=== PATIENT | male | born 1930 | race African-American/Black ===

== ENCOUNTER 2017-08-02 10:08 | Inpatient (IN) | payer OTHER ==
--- NOTE | 2017-08-02 11:37 | PDOC ---
History of Present Illness <Jan Berumen - Last Filed: 08/02/17 13:17> - General History Source: Patient Exam Limitations: No Limitations - History of Present Illness Initial Comments: 08/02/17 11:59 The patient is a 87 year old male from [facility], with a significant past medical history of ESRD on dialysis (//), hypertension, anemia, hypercholesterolemia, hyponatremia, CVA, atrial fibrillation, who presents to the emergency department via EMS for evaluation of low hemoglobin levels (5.7). The patient states his last dialysis was WednesdayJuly 31 (approx. 3 days ago) where blood work was performed and determined that his hemoglobin levels were low. The patient reports associated weakness and states he has a history of anemia and has had blood transfusions in the past. He denies any recent fevers, chills, headache or dizziness. He denies any recent nausea, vomit, diarrhea or constipation. He denies any recent chest pain or shortness of breath. He denies any recent dysuria, frequency, urgency or hematuria. Allergies: NKA Social History: Former smoker. Denies EtOH use and recreational drug use. Primary Care Physician: Dr. Eddi Jennings <Nabil Herrera - Last Filed: 08/02/17 13:50> - General Chief Complaint: Revisit, Lab Variance Stated Complaint: Blood Transfusion Time Seen by Provider: 08/02/17 10:59 Past History - Past Medical History Anemia: No Asthma: No Cancer: No Cardiac Disorders: No CVA: No COPD: No CHF: No Dementia: Yes (alzheimers) Diabetes: No Dialysis: Yes GI Disorders: No Disorders: No HTN: Yes Hypercholesterolemia: Yes Liver Disease: No Seizures: No Thyroid Disease: No - Suicide/Smoking/Psychosocial Hx Smoking Status: Yes Smoking History: Never smoked Years of Tobacco Use: 22 Have you smoked in the past 12 months: No Number of Cigarettes Smoked Daily: 0 If you are a former smoker, when did you quit?: Over 5 years ago Information on smoking cessation initiated: No Hx Alcohol Use: No Drug/Substance Use Hx: No Substance Use Type: None Hx Substance Use Treatment: No <Jan Berumen - Last Filed: 08/02/17 13:17> <Nabil Herrera - Last Filed: 08/02/17 13:50> - Past Medical History Allergies/Adverse Reactions: Allergies Allergy/AdvReac Type Severity Reaction Status Date / Time No Known Allergies Allergy Verified 05/18/16 11:22 Home Medications: Ambulatory Orders Acetaminophen [Tylenol] 325 mg PO Q6H PRN 10/28/15 Docusate Sodium [Colace -] 100 mg PO TID 10/28/15 Ferrous Sulfate [Feosol] 325 mg PO DAILY 10/28/15 Pantoprazole Sodium [Protonix] 40 mg PO DAILY 10/28/15 Aspirin Coated [Ecotrin -] 81 mg PO DAILY 05/18/16 Sevelamer Carbonate [Renvela -] 2.4 g PO TID 05/18/16 Atorvastatin Ca [Lipitor] 10 mg PO HS tablet 05/22/16 Benzocaine/Menthol [Cepacol Sore Throat Lozenge] 1 each MM QID PRN 08/02/17 Brimonidine Tartrate/Timolol [Combigan Eye Drops] 1 ml OP TID 08/02/17 Carvedilol 12.5 mg PO BID 08/02/17 Diltiazem [Cardizem -] 90 mg PO QID 08/02/17 Dorzolamide HCl [Trusopt 2%] 1 drop OP TID 08/02/17 Fluocinolone/Shower Cap [Fluocinolone 0.01% Scalp Oil] 118.28 ml TP PRN Guaifenesin [Brandy-Tussin] 200 mg PO QID PRN 08/02/17 Latanoprost 0.005% Eye Drops [Xalatan 0.005% Eye Drops -] 1 drop OP DAILY Lisinopril [Zestril] 2.5 mg PO DAILY 08/02/17 Magnesium Hydrox 2400MG/30Ml [Milk of Magnesia -] 30 ml PO PRN PRN 08/02/17 Ofloxacin Otic [Floxin Otic (Ear) Solution -] 10 drop OT DAILY 08/02/17 Timolol 0.5% [Timoptic 0.5%] 1 drop OD BID 08/02/17 Vitamin B Comp W-C [Nephro-Heather -] 0.8 mg PO HS 08/02/17 Review of Systems - Review of Systems Constitutional: Yes: Weakness. No: Chills, Fever Respiratory: No: Cough, Shortness of Breath Cardiac (ROS): No: Chest Pain, Syncope ABD/GI: No: Blood Streaked Bowels, Diarrhea, Vomiting Neurological: No: Headache All Other Systems: Reviewed and Negative <Jan Berumen - Last Filed: 08/02/17 13:17> *Physical Exam - Vital Signs Last Vital Signs Temp Pulse Resp BP Pulse Ox 98.4 F 70 16 131/52 96 08/02/17 10:23 08/02/17 10:08/02/17 10:08/02/17 10:23 08/02/17 10:23 <Jan Berumen - Last Filed: 08/02/17 13:17> - Vital Signs Last Vital Signs Temp Pulse Resp BP Pulse Ox 98.4 F 70 16 131/52 96 08/02/17 10:23 08/02/17 10:23 08/02/17 10:23 08/02/17 10:23 08/02/17 10:23 - Physical Exam Comments: 08/02/17 12:00 GENERAL: The patient is awake, alert, and fully oriented, in no acute distress. HEAD: Normal with no signs of trauma. EYES: Pupils equal, round and reactive to light, extraocular movements intact, sclera anicteric, conjunctiva clear with no pallor. ENT: Ears normal, nares patent, oropharynx clear without exudates. Moist mucous membranes. NECK: Normal range of motion, supple without lymphadenopathy, JVD, or masses. LUNGS: Breath sounds equal, clear to auscultation bilaterally. No wheeze/ crackles. HEART: Regular rate and rhythm, normal S1 and S2 without murmur or rub. ABDOMEN: Soft/nontender/nondistended. BS wnl. No guarding or rebound. No palpable masses. No hepatosplenomegaly. EXTREMITIES: +Left arm fistula with palpable thrill. No cellulitis or erythema. Normal range of motion, no edema. No clubbing or cyanosis. No cords, erythema, or tenderness. NEUROLOGICAL: Cranial nerves II through XII grossly intact. Normal speech. PSYCH: Normal mood, normal affect. SKIN: Warm, Dry, normal turgor, no rashes or lesions noted. <Nabil Herrera - Last Filed: 08/02/17 13:50> Heart Score/ECG Review #1 ECG reviewed & interpreted by me at: 11:04 General ECG Interpretation: Normal Rate (71, variable aflutter, PVC x2 noted), Normal Intervals (qtc 465), No acute ischemic changes <HarleyJan ding - Last Filed: 08/02/17 13:17> ED Treatment Course - LABORATORY CBC & Chemistry Diagram: 08/02/17 11:46 08/02/17 11:46 - RADIOLOGY Radiology Studies Ordered: Category Date Time Status CHEST X-RAY PORTABLE* [RAD] Stat Radiology 08/02/17 11:35 Ordered <UmairbreannatoñaJan - Last Filed: 08/02/17 13:17> - LABORATORY CBC & Chemistry Diagram: 08/02/17 11:46 08/02/17 11:46 - RADIOLOGY Radiograph Interpretation: 08/02/17 12:24 EXAM#: TYPE/EXAM: RESULT: [id number] RAD/CHEST X-RAY PORTABLE* AP portable chest: Chest pain. Imaging reveals a large heart, sclerotic unfolded aorta and degenerative changes. There is a left arm vascular stent. The joe are not enlarged. There is some atelectasis or infiltrate at the left base. There is some apical pleural thickening. The right lung is clear. Impression : Large heart. Retrocardiac changes. Sclerotic unfolded aorta. Left arm vascular stent. Reported By: Tushar Estes MD <Nabil Herrera - Last Filed: 08/02/17 13:50> Medical Decision Making - Medical Decision Making 08/02/17 12:20 A portion of this note was documented by scribe services under my direction. I have reviewed the details of the note, within reason, and agree with the documentation with the following case summary and management plan written by me. 87-year-old male with history of end-stage renal disease on dialysis, history of anemia requiring transfusions sent from [facility] with hemoglobin of 5.5 on labs drawn Wednesday dialysis. Patient has generalized weakness, but denies any chest pain, shortness of breath, syncope. Vital signs stable. Slight conjunctival pallor Abdomen benign Left arm fistula 87-year-old male with acute on chronic anemia, likely secondary to underlying ESRD. Sent for transfusion Admit, dialysis as needed 08/02/17 13:17 Persistent anemia with Hgb 5.4, baseline chemistries. Ordered for PRBC, will admit to Dr. Jennings [facility]. <Jan Berumen - Last Filed: 08/02/17 13:17> - Medical Decision Making 08/02/17 12:[address] Jennings at 12:34 pm. Case discussed with Dr. Jennings. Agrees with observation med surge. <Nabil Herrera - Last Filed: 08/02/17 13:50> *DC/Admit/Observation/Transfer - Discharge Dispostion Admit: Yes <Jan Berumen - Last Filed: 08/02/17 13:17> - Attestations Scribe Attestion: 08/02/17 12:00 Documentation prepared by Nabil Herrera, acting as medical social consultant for Jan Berumen MD. <Nabil Herrera - Last Filed: 08/02/17 13:50> Diagnosis at time of Disposition: ESRD (end stage renal disease) on dialysis Anemia Qualifiers: Anemia type: unspecified type Qualified Code(s): D64.9 - Anemia, unspecified - Discharge Dispostion Condition at time of disposition: Fair - Referrals Referrals: Eddi Jennings MD [Primary Care Provider] - - Patient Instructions - Post Discharge Activity
[2017-08-02 12:06] LABS: BASO % 0.8 % (0-2.0); EOS % 2.7 % (0-4.5); HEMATOCRIT 16.4 % (35.4-49); MCH 31.7 pg (25.7-33.7); MEAN CELL VOLUME 96.1 fl (80-96); MEAN PLT VOLUME 8.2 fl (7.5-11.1); MONO % 8.2 % (3.8-10.2); NEUT % 74.3 % (42.8-82.8); PLATELET COUNT 250 K/MM3 (134-434); RBC 1.71 M/mm3 (4.00-5.60); RDW 18.2 % (11.9-15.9); WHITE BLOOD COUNT 5.6 K/mm3 (4.0-10.0)
[2017-08-02 12:17] LABS: HEMOGLOBIN 5.4 GM/dL (11.7-16.9); INR 1.12 (0.82-1.09); PROTHROMBIN TIME (PATIENT) 12.6 SEC (9.98-11.88)
[2017-08-02 12:20] LABS: ACTIVATED PTT 29.7 SECONDS (26.9-34.4)
[2017-08-02 12:30] LABS: ALBUMIN 2.8 g/dl (3.4-5.0); ANION GAP 11 (8-16); BILIRUBIN,TOTAL 0.4 mg/dL (0.2-1.0); BLOOD UREA NITROGEN 27 mg/dL (7-18); CALCIUM 8.7 mg/dL (8.5-10.1); CHLORIDE 96 mmol/L (98-107); CO2 27 mmol/L (21-32); GLUCOSE,RANDOM 96 mg/dL (74-106); SGPT/ALT 24 U/L (12-78); SODIUM 134 mmol/L (136-145); TOT PROT 6.1 g/dl (6.4-8.2)
[2017-08-02 12:36] LABS: ALK PHOS 140 U/L (45-117)
[2017-08-02 12:44] LABS: MAGNESIUM 2.5 mg/dL (1.8-2.4); POTASSIUM 4.3 mmol/L (3.5-5.1); SGOT/AST 26 U/L (15-37)
[2017-08-02 12:46] LABS: CREATININE 7.6 mg/dL (0.7-1.3)
[2017-08-02 15:17] VITALS: BMI 21.3
[2017-08-02] MEDS ORDERED: FLUOCINOLONE AU PRN (16:47)
[2017-08-02] MEDS ORDERED: [UNRECOGNIZED DRUG - OTHER] AU PRN (16:47)
[2017-08-02] MEDS ORDERED: guaiFENesin 200 MG/10 ML 10 ML UNIT-DOSE CUPS PO PRN (16:47)
--- NOTE | 2017-08-02 16:55 | EKG ---
Test Reason : Blood Pressure : / mmHG Vent. 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
[2017-08-02] MEDS: dilTIAZem HCL 30 MG TABLET (FP) PO SCH (17:18)
[2017-08-02] MEDS: FERROUS SO4 325 MG TABLET (FP) PO SCH (17:19)
[2017-08-02] MEDS: SEVELAMER CARBONATE 2.4 GM POWDER PACKET PO SCH (19:14)
--- NOTE | 2017-08-02 20:17 | HP ---
Admitting History and Physical - Primary Care Physician PCP: Eddi Jennings - Admission Chief Complaint: send for anemia History of Present Illness: The patient is a 87 year old male from [facility], with a significant past medical history of ESRD on dialysis (//), hypertension, anemia, hypercholesterolemia, hyponatremia, CVA, atrial fibrillation, gi bleed-- off a/c --who presents to the emergency department via EMS for evaluation of low hemoglobin levels (5.7). The patient states his last dialysis was WednesdayJuly 31 (approx. 3 days ago) where blood work was performed and determined that his hemoglobin levels were low. The patient reports associated weakness and states he has a history of anemia and has had blood transfusions in the past. He denies any recent fevers, chills, headache or dizziness. He denies any recent nausea, vomit, diarrhea or constipation. He denies any recent chest pain or shortness of breath. He denies any recent dysuria, frequency, urgency or hematuria. pt seen / examined -- chart reviewed. Pt comfortable got one unit of p rbc today-- 2nd unit also ordered. pt feels better. c/c- decrease in left eye vision. denies cp/sob. denies abd pain. no headche/ dizziness. 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 Cardiovascular: Yes: HTN, Hyperlipdemia Renal/: Yes: Hemodialysis Heme/Onc: Yes: Anemia - Past Surgical History Past Surgical History: Yes: Joint Replacement - Smoking History Smoking history: Never smoked Have you smoked in the past 12 months: No Aproximately how many cigarettes per day: 0 If you are a former smoker, when did you quit?: Over 5 years ago - Alcohol/Substance Use Hx Alcohol Use: No History of Substance Use: reports: None Home Medications - Allergies Allergies/Adverse Reactions: Allergies Allergy/AdvReac Type Severity Reaction Status Date / Time No Known Allergies Allergy Verified 05/18/16 11:22 - Home Medications Home Medications: Ambulatory Orders Acetaminophen [Tylenol] 325 mg PO Q6H PRN 10/28/15 Docusate Sodium [Colace -] 300 mg PO HS 10/28/15 Ferrous Sulfate [Feosol] 325 mg PO Q48H 10/28/15 Pantoprazole Sodium [Protonix] 40 mg PO DAILY 10/28/15 Atorvastatin Ca [Lipitor] 10 mg PO HS tablet 05/22/16 Carvedilol 12.5 mg PO Q12H 08/02/17 Diltiazem [Cardizem -] 90 mg PO Q6H 08/02/17 Dorzolamide HCl [Trusopt 2% -] 1 drop OS BID 08/02/17 Fluocinolone/Shower Cap [Fluocinolone 0.01% Scalp Oil] 3 drop AU BID PRN Guaifenesin [Brandy-Tussin] 200 mg PO QID PRN 08/02/17 Latanoprost 0.005% Eye Drops [Xalatan 0.005% Eye Drops -] 1 drop OU HS 08/02/17 Lisinopril [Zestril] 2.5 mg PO DAILY 08/02/17 Ofloxacin Otic [Floxin Otic -] 2 drop OD DAILY 08/02/17 Sevelamer Carbonate [Renvela Powder Packet -] 2.4 gm PO TIDWM 08/02/17 Timolol 0.5% [Timoptic 0.5%] 1 drop OU BID 08/02/17 Vitamin B Comp W-C [Nephro-Heather -] 0.8 mg PO HS 08/02/17 Review of Systems - Review of Systems Constitutional: reports: Weakness Eyes: reports: Blurred Vision Neck: reports: No Symptoms Cardiovascular: reports: No Symptoms Respiratory: reports: No Symptoms Gastrointestinal: reports: No Symptoms Neurological: reports: No Symptoms Psychiatric: reports: No Symptoms Physical Examination Vital Signs: Vital Signs Temperature 97.8 F 08/02/17 19:41 Pulse Rate 78 08/02/17 19:41 Respiratory Rate 20 08/02/17 19:41 Blood Pressure 136/57 08/02/17 19:41 O2 Sat by Pulse Oximetry (%) 97 08/02/17 15:03 Constitutional: Yes: No Distress, Calm Eyes: Yes: Other (right eye- conjuctval reddness.) Neck: Yes: Supple Cardiovascular: Yes: Pulse Irregular. No: Regular Rate and Rhythm Respiratory: Yes: CTA Bilaterally Gastrointestinal: Yes: Soft Edema: No Neurological: Yes: Alert Psychiatric: Yes: Alert Labs: CBC, BMP 08/02/17 11:46 08/02/17 11:46 Imaging - Results Chest X-ray: Report Reviewed EKG: Report Reviewed Problem List - Problems (1) Anemia requiring transfusions Code(s): D64.9 - ANEMIA, UNSPECIFIED (2) GI bleed Code(s): K92.2 - GASTROINTESTINAL HEMORRHAGE, UNSPECIFIED (3) ESRD (end stage renal disease) on dialysis Code(s): N18.6 - END STAGE RENAL DISEASE; Z99.2 - DEPENDENCE ON RENAL DIALYSIS (4) Afib Code(s): I48.91 - UNSPECIFIED ATRIAL FIBRILLATION Qualifiers: Atrial fibrillation type: persistent Qualified Code(s): I48.1 - Persistent atrial fibrillation (5) Glaucoma Code(s): H40.9 - UNSPECIFIED GLAUCOMA Assessment/Plan Transfuse. gi consult . meds reviewed. Orders written. will request cad engineer to evaluate. will follow. All above discussed with pt.
[2017-08-02] MEDS ORDERED: PT OWN MED DRAWER 7, Y5N ONE ×2 (21:49→22:09)
[2017-08-02] MEDS: ATORVASTATIN CA 10 MG TABLET (FP) PO SCH (21:54)
[2017-08-02] MEDS: CARVEDILOL 12.5 MG TABLET (FP) PO SCH (21:54)
[2017-08-02] MEDS: DOCUSATE SODIUM 100 MG CAPSULE (FP) PO SCH (21:54)
[2017-08-02] MEDS: VITAMIN B COMP W-C 1 EA TABLET PO SCH (21:55)
[2017-08-02] MEDS: DORZOLAMIDE 2% HCL OPHTHALMIC SOLUTION 10 ML BOTTLE OS SCH (22:01)
[2017-08-02] MEDS: TIMOLOL 0.5% OPHTHALMIC SOL 5 ML BOTTLE OU SCH (22:01)
[2017-08-02] MEDS: LATANOPROST 0.005% OPHTH SOLN 2.5ML BOTTLE OU SCH (22:02)
[2017-08-03] MEDS: dilTIAZem HCL 30 MG TABLET (FP) PO SCH ×5 (00:12→23:31)
[2017-08-03 07:14] LABS: HEMATOCRIT 19.5 % (35.4-49); MCH 31.6 pg (25.7-33.7); MCHC 34.6 g/dl (32.0-35.9); MEAN CELL VOLUME 91.2 fl (80-96); MEAN PLT VOLUME 7.6 fl (7.5-11.1); PLATELET COUNT 207 K/MM3 (134-434); RBC 2.14 M/mm3 (4.00-5.60); RDW 17.4 % (11.9-15.9)
[2017-08-03 07:17] LABS: HEMOGLOBIN 6.7 GM/dL (11.7-16.9)
[2017-08-03] MEDS ORDERED: PT OWN MED DRAWER 7, Y5N ONE ×3 (08:41→22:15)
[2017-08-03] MEDS: SEVELAMER CARBONATE 2.4 GM POWDER PACKET PO SCH ×3 (08:44→18:01)
--- NOTE | 2017-08-03 08:55 | PN ---
Progress Note, Physician History of Present Illness: pt seen / examined comfortable feels better no obvious bleeding got 2 units of prbcs yesterday. - Current Medication List Current Medications: Active Medications Acetaminophen (Tylenol -) 325 mg PO Q6H PRN PRN Reason: PAIN LEVEL 1 - 3 Atorvastatin Calcium (Lipitor -) 10 mg PO HS [facility] Last Admin: 08/02/17 21:54 Dose: 10 mg Carvedilol (Coreg -) 12.5 mg PO BID [facility] Last Admin: 08/02/17 21:54 Dose: 12.5 mg Diltiazem HCl (Cardizem -) 90 mg PO Q6HPO [facility] Last Admin: 08/03/17 06:03 Dose: 90 mg Docusate Sodium (Colace -) 300 mg PO [facility] Last Admin: 08/02/17 21:54 Dose: 300 mg Dorzolamide HCl (Trusopt 2%) 1 drop OS BID [facility] Last Admin: 08/02/17 22:01 Dose: 1 drop Ferrous Sulfate (Feosol -) 325 mg PO Q2D [facility] Last Admin: 08/02/17 17:19 Dose: 325 mg Guaifenesin (Robitussin -) 5 ml PO QID PRN PRN Reason: COUGH Latanoprost (Xalatan 0.005% Eye Drops -) 1 drop OU [facility] Last Admin: 08/02/17 22:02 Dose: 1 drop Lisinopril (Prinivil) 2.5 mg PO DAILY [facility] Multivit/Ca Carb/B Cmplx/FA/Prenat (Nephro-Heather -) 1 tablet PO [facility] Last Admin: 08/02/17 21:55 Dose: 1 tablet Non-Formulary Medication (Fluocinolone/Shower Cap [Fluocinolone 0.01% Scalp Oil] ) 3 drop AU BID PRN PRN Reason: ECZEMATOID OTITIS EXTERNA Ofloxacin (Floxin Otic (Ear) Solution -) 2 drop AD DAILY [facility] Pantoprazole Sodium (Protonix -) 40 mg PO DAILY [facility] Sevelamer Carbonate (Renvela Powder Packet -) 2.4 gm PO TIDWM [facility] Last Admin: 08/03/17 08:44 Dose: 2.4 gm Timolol Maleate (Timoptic 0.5%) 1 drop OU BID [facility] Last Admin: 08/02/17 22:01 Dose: 1 drop - Objective Vital Signs: Vital Signs Temperature 98.8 F 08/03/17 05:47 Pulse Rate 77 08/03/17 05:47 Respiratory Rate 20 08/03/17 05:47 Blood Pressure 135/64 08/03/17 05:47 O2 Sat by Pulse Oximetry (%) 96 08/02/17 21:00 Constitutional: Yes: No Distress, Calm Eyes: Yes: Other (right eye reddness) Neck: Yes: Supple Cardiovascular: Yes: Pulse Irregular. No: Regular Rate and Rhythm Respiratory: Yes: Diminished (at bases) Gastrointestinal: Yes: Normal Bowel Sounds, Soft Edema: No Neurological: Yes: Alert Labs: CBC, BMP 08/03/17 06:40 08/02/17 11:46 INR, PTT INR 1.12 (0.82-1.09) D 08/02/17 11:46 Problem List - Problems (1) Anemia requiring transfusions Code(s): D64.9 - ANEMIA, UNSPECIFIED (2) GI bleed Code(s): K92.2 - GASTROINTESTINAL HEMORRHAGE, UNSPECIFIED (3) ESRD (end stage renal disease) on dialysis Code(s): N18.6 - END STAGE RENAL DISEASE; Z99.2 - DEPENDENCE ON RENAL DIALYSIS (4) Afib Code(s): I48.91 - UNSPECIFIED ATRIAL FIBRILLATION Qualifiers: Atrial fibrillation type: persistent Qualified Code(s): I48.1 - Persistent atrial fibrillation (5) Glaucoma Code(s): H40.9 - UNSPECIFIED GLAUCOMA Assessment/Plan H/H still low will transfuse with dialysis today. gi consult .- pending will follow. Discussed with nursing staff.
--- NOTE | 2017-08-03 09:40 | CON.GI ---
Consult Consult Specialty:: GI Referred by:: Dr. Rochelle Jennings Reason for Consultation:: Anemia - History of Present Illness Chief Complaint: my blood was low History of Present Illness: 57M admitted from [place] for evaluation of anemia. In ER Hgb was 5.4. he received 2 U PRBC and hgb in AM is 6.7. There has been no reported rectal bleeding or melena. He denies dysphagia/odynophagia/early satiety/diarrhea / change in bowel habits. He alludes to having surgery for ulcers in the stomach multiple years ago and believes that he may have had an upper endoscopy or colonoscopy in the past. When speaking to his daughter Jeny today via telephone, she tells me that he had a prolonged hospitalization at [facility] about a year ago at which time EGD and colonoscopy may have been performed. She does not believe that anything was found. There is no family history of colorectal cancer or other GI malignancy. Was noted to be guaiac + in the ER and is to receive 2 more units of PRBC during dialysis today. Admission EKG revealed aflutter with variable A-V block +/- PVC's. 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 Place of : [facility] History of Recent Travel: No Home Medications - Allergies Allergies/Adverse Reactions: Allergies Allergy/AdvReac Type Severity Reaction Status Date / Time No Known Allergies Allergy Verified 05/18/16 11:22 - Home Medications Home Medications: Ambulatory Orders Acetaminophen [Tylenol] 325 mg PO Q6H PRN 10/28/15 Docusate Sodium [Colace -] 300 mg PO HS 10/28/15 Ferrous Sulfate [Feosol] 325 mg PO Q48H 10/28/15 Pantoprazole Sodium [Protonix] 40 mg PO DAILY 10/28/15 Atorvastatin Ca [Lipitor] 10 mg PO HS tablet 05/22/16 Carvedilol 12.5 mg PO Q12H 08/02/17 Diltiazem [Cardizem -] 90 mg PO Q6H 08/02/17 Dorzolamide HCl [Trusopt 2% -] 1 drop OS BID 08/02/17 Fluocinolone/Shower Cap [Fluocinolone 0.01% Scalp Oil] 3 drop AU BID PRN Guaifenesin [Brandy-Tussin] 200 mg PO QID PRN 08/02/17 Latanoprost 0.005% Eye Drops [Xalatan 0.005% Eye Drops -] 1 drop OU HS 08/02/17 Lisinopril [Zestril] 2.5 mg PO DAILY 08/02/17 Ofloxacin Otic [Floxin Otic -] 2 drop OD DAILY 08/02/17 Sevelamer Carbonate [Renvela Powder Packet -] 2.4 gm PO TIDWM 08/02/17 Timolol 0.5% [Timoptic 0.5%] 1 drop OU BID 08/02/17 Vitamin B Comp W-C [Nephro-Heather -] 0.8 mg PO HS 08/02/17 Family Disease History - Family Disease History Family Disease History: Other: Father (: unclear cause), Mother (: 50: complications from HTN), Brother (6, 1 alive: Does not know the cause of their deaths), Sister (6, : Does not know the cause of ), Daughter (2, healthy) Other Family History: No family history of colorectal cancer or other GI malignancy Review of Systems - Review of Systems Constitutional: denies: Fever, Unintentional Wgt. Loss Cardiovascular: reports: Chest Pain ("when walking up hills") Respiratory: reports: SOB ("when walking upo hills"). denies: Cough Gastrointestinal: denies: Constipation, Diarrhea, Melena, Nausea, Rectal Bleeding, Vomiting, Vomiting Blood Psychiatric: reports: Anxiety Physical Exam-GI Vital Signs: Vital Signs Temperature 98.8 F 08/03/17 05:47 Pulse Rate 77 08/03/17 05:47 Respiratory Rate 20 08/03/17 05:47 Blood Pressure 135/64 08/03/17 05:47 O2 Sat by Pulse Oximetry (%) 96 08/02/17 21:00 Constitutional: Yes: Calm Eyes: Yes: Sclera Icterus Cardiovascular: Yes: Pulse Irregular, Murmur (+ systolic murmur) Respiratory: Yes: CTA Bilaterally Gastrointestinal Inspection: Yes: Scars (long vertical midline surgical scar). No: Hernia ...Auscultate: Yes: Normoactive Bowel Sounds ...Palpate: Yes: Soft. No: Hepatomegaly, Splenomegaly, Tenderness ...Percussion: No: Tympanitic ...Rectal Exam: Yes: Other (No external lesions, no masses, formed iron stained stool in rectal vault, guaiac positive.) Extremities: Yes: Other (Left AV fistula) Edema: No (No LE edema) Neurological: Yes: Alert Labs: CBC, BMP 08/03/17 06:40 08/02/17 11:46 INR, PTT INR 1.12 (0.82-1.09) D 08/02/17 11:46 Hepatic Panel Total Bilirubin 0.4 mg/dL (0.2-1.0) 08/02/17 11:46 AST 26 U/L (15-37) D 08/02/17 11:46 ALT 24 U/L (12-78) D 08/02/17 11:46 Alkaline Phosphatase 140 U/L (45-117) H D 08/02/17 11:46 Albumin 2.8 g/dl (3.4-5.0) L 08/02/17 11:46 Problem List - Problems (1) Anemia Assessment/Plan: With guaiac positive stool. I discussed the possibility of EGD and colonoscopy with Mr. Rodarte to exclude sources of bleeding such as bleeding blood vessels , polyps, PUD or cancer of the intestinal tract such as colon cancer. We discussed potential risks of the procedure like but not limited to bleeding, perforation requiring surgery to repair, infection and sedation medication effects all of which could be potentially life threatening. he said he was not sure regarding doing the procedures. I spoke with his daughter Jeny as well as resiterated the above. Jeny expressed concern regarding his father' s age and potential risks of procedures. I asked that she discuss things with her father and Dr. Jennings and gave her my office number to contact me if they decide to proceed with procedures. In the interim, advise: Continuing PPI Avoidance of NSAIDS Discussed w/ Dr. Jennings: Cardiology evaluation / pre-procedural clearance given Mr. Rodarte's complaints of exertional chest pain and CASTILLO. ordered echo as well. Monitor H/H and for signs of overt bleeding. Code(s): D64.9 - ANEMIA, UNSPECIFIED Qualifiers: Anemia type: unspecified type Qualified Code(s): D64.9 - Anemia, unspecified
[2017-08-03] MEDS: OFLOXACIN 0.3% OTIC SOLUTION 5 ML BOTTLE AD SCH (11:08)
[2017-08-03] MEDS: CARVEDILOL 12.5 MG TABLET (FP) PO SCH ×2 (11:08→22:16)
[2017-08-03] MEDS: DORZOLAMIDE 2% HCL OPHTHALMIC SOLUTION 10 ML BOTTLE OS SCH ×2 (11:09→22:17)
[2017-08-03] MEDS: LISINOPRIL 5 MG TABLET (FP) PO SCH (11:09)
[2017-08-03] MEDS: TIMOLOL 0.5% OPHTHALMIC SOL 5 ML BOTTLE OU SCH ×2 (11:09→22:17)
[2017-08-03] MEDS: PANTOPRAZOLE 40 MG TABLET (FP) PO SCH (11:09)
--- NOTE | 2017-08-03 12:14 | CONSULT ---
Consult - text type - Consultation Consultation Note: Renal Consult for ESRD on HD This is a 87 year old gentleman with PMhx of ESRD on HD (TTS at [facility] ), Afib (off A/C), Hypertension, Chronic Anemia from CKD, HLD who was sent to the ED after outpatient labs done at dialysis showed a Hgb of 5.4. Pt had Hgb of 9.5 earlier this month. Pt denies any sob, chest pain, dizziness, lethargy or weakness. Pt cannot report if he saw any melena or bloody stools. No Abd pain. Last dialysis was Wednesday w/o issues. Pt is currently getting dialysis with planned two additional units to be transfused. PMhx: as above Allergies: NKDA Family hx: NC Social Hx: No T/A/D ROS: as per HPI, all other pertinent ros negative Home Medications Medication Instructions Recorded Acetaminophen [Tylenol] 325 mg PO Q6H PRN 10/28/15 Docusate Sodium [Colace -] 300 mg PO HS 10/28/15 Ferrous Sulfate [Feosol] 325 mg PO Q48H 10/28/15 Pantoprazole Sodium [Protonix] 40 mg PO DAILY 10/28/15 Atorvastatin Ca [Lipitor] 10 mg PO HS tablet 05/22/16 Carvedilol 12.5 mg PO Q12H 08/02/17 Diltiazem [Cardizem -] 90 mg PO Q6H 08/02/17 Dorzolamide HCl [Trusopt 2% -] 1 drop OS BID 08/02/17 Fluocinolone/Shower Cap 3 drop AU BID PRN 08/02/17 [Fluocinolone 0.01% Scalp Oil] Guaifenesin [Brandy-Tussin] 200 mg PO QID PRN 08/02/17 Latanoprost 0.005% Eye Drops 1 drop OU HS 08/02/17 [Xalatan 0.005% Eye Drops -] Lisinopril [Zestril] 2.5 mg PO DAILY 08/02/17 Ofloxacin Otic [Floxin Otic -] 2 drop OD DAILY 08/02/17 Sevelamer Carbonate [Renvela 2.4 gm PO TIDWM 08/02/17 Powder Packet -] Timolol 0.5% [Timoptic 0.5%] 1 drop OU BID 08/02/17 Vitamin B Comp W-C [Nephro-Heather -] 0.8 mg PO HS 08/02/17 Vital Signs Temperature 98.8 F 08/03/17 05:47 Pulse Rate 77 08/03/17 05:47 Respiratory Rate 20 08/03/17 05:47 Blood Pressure 135/64 08/03/17 05:47 O2 Sat by Pulse Oximetry (%) 96 08/02/17 21:00 Intake & Output 07/31/17 08/01/17 08/02/17 08/03/17 23:59 23:59 23:59 23:59 Intake Total 1100 300 Output Total 0 0 Balance 1100 300 Weight 59.874 kg NAD awake and alert irregular, no M/R CTA soft NT/ND no Le edmea, clubbing or cyanoss CBC, BMP 08/03/17 06:40 08/02/17 11:46 Current Medications Acetaminophen (Tylenol -) 325 mg PO Q6H PRN PRN Reason: PAIN LEVEL 1 - 3 Atorvastatin Calcium (Lipitor -) 10 mg PO [facility] Last Admin: 08/02/17 21:54 Dose: 10 mg Carvedilol (Coreg -) 12.5 mg PO BID [facility] Last Admin: 08/03/17 11:08 Dose: Not Given Diltiazem HCl (Cardizem -) 90 mg PO Q6HPO [facility] Last Admin: 08/03/17 06:03 Dose: 90 mg Docusate Sodium (Colace -) 300 mg PO [facility] Last Admin: 08/02/17 21:54 Dose: 300 mg Dorzolamide HCl (Trusopt 2%) 1 drop OS BID [facility] Last Admin: 08/03/17 11:09 Dose: Not Given Ferrous Sulfate (Feosol -) 325 mg PO Q2D [facility] Last Admin: 08/02/17 17:19 Dose: 325 mg Guaifenesin (Robitussin -) 5 ml PO QID PRN PRN Reason: COUGH Latanoprost (Xalatan 0.005% Eye Drops -) 1 drop OU [facility] Last Admin: 08/02/17 22:02 Dose: 1 drop Lisinopril (Prinivil) 2.5 mg PO DAILY [facility] Last Admin: 08/03/17 11:09 Dose: Not Given Multivit/Ca Carb/B Cmplx/FA/Prenat (Nephro-Heather -) 1 tablet PO HS [facility] Last Admin: 08/02/17 21:55 Dose: 1 tablet Non-Formulary Medication (Fluocinolone/Shower Cap [Fluocinolone 0.01% Scalp Oil] ) 3 drop AU BID PRN PRN Reason: ECZEMATOID OTITIS EXTERNA Ofloxacin (Floxin Otic (Ear) Solution -) 2 drop AD DAILY [facility] Last Admin: 08/03/17 11:08 Dose: Not Given Pantoprazole Sodium (Protonix -) 40 mg PO DAILY [facility] Last Admin: 08/03/17 11:09 Dose: Not Given Sevelamer Carbonate (Renvela Powder Packet -) 2.4 gm PO TIDWM [facility] Last Admin: 08/03/17 08:44 Dose: 2.4 gm Timolol Maleate (Timoptic 0.5%) 1 drop OU BID [facility] Last Admin: 08/03/17 11:09 Dose: Not Given 87 year old gentleman with PMhx of ESRD on HD (TTS at [facility]), Afib ( off A/C), Hypertension, Chronic Anemia from CKD, HLD who was sent to the ED after outpatient labs done at dialysis showed a Hgb of 5.4. #Acute Anemia with + stool guiac GI is following to get 2 additional units of PRBC with HD today pt is on long acting MICHELLE from outpatient dialysis pt is not on A/C #ESRD on HD pt is tolerating dialysis today UF as tolerated will continue dialysis 3x weekly as a inpatient dose all meds for intermittent HD #Hypertension Continue Lisinopril, Coreg, Diltiazem #Afib continue rate control with Diltiazem off A/C because of bleeding risk Thank you Will follow Oh Shell DO
[2017-08-03] MEDS: DOCUSATE SODIUM 100 MG CAPSULE (FP) PO SCH (22:15)
[2017-08-03] MEDS: ATORVASTATIN CA 10 MG TABLET (FP) PO SCH (22:16)
[2017-08-03] MEDS: VITAMIN B COMP W-C 1 EA TABLET PO SCH (22:16)
[2017-08-03] MEDS: LATANOPROST 0.005% OPHTH SOLN 2.5ML BOTTLE OU SCH (22:16)
[2017-08-03] MEDS: ACETAMINOPHEN 325 MG TABLET (FP) PO PRN (23:31)
[2017-08-04] MEDS: dilTIAZem HCL 30 MG TABLET (FP) PO SCH ×3 (05:54→17:30)
[2017-08-04] MEDS ORDERED: PT OWN MED DRAWER 7, Y5N ONE ×3 (07:41→21:38)
[2017-08-04] MEDS: SEVELAMER CARBONATE 2.4 GM POWDER PACKET PO SCH ×3 (07:49→17:30)
[2017-08-04 09:44] LABS: HEMOGLOBIN 9.2 GM/dL (11.7-16.9); MCH 30.5 pg (25.7-33.7); MCHC 33.9 g/dl (32.0-35.9); MEAN PLT VOLUME 7.9 fl (7.5-11.1); PLATELET COUNT 189 K/MM3 (134-434); RDW 17.1 % (11.9-15.9); WHITE BLOOD COUNT 8.3 K/mm3 (4.0-10.0)
[2017-08-04] MEDS: PANTOPRAZOLE 40 MG TABLET (FP) PO SCH (09:57)
[2017-08-04] MEDS: OFLOXACIN 0.3% OTIC SOLUTION 5 ML BOTTLE AD SCH (09:57)
[2017-08-04] MEDS: CARVEDILOL 12.5 MG TABLET (FP) PO SCH ×2 (09:57→21:39)
[2017-08-04] MEDS: FERROUS SO4 325 MG TABLET (FP) PO SCH (09:57)
[2017-08-04] MEDS: LISINOPRIL 5 MG TABLET (FP) PO SCH (09:57)
[2017-08-04] MEDS: DORZOLAMIDE 2% HCL OPHTHALMIC SOLUTION 10 ML BOTTLE OS SCH ×2 (09:58→21:40)
[2017-08-04] MEDS: TIMOLOL 0.5% OPHTHALMIC SOL 5 ML BOTTLE OU SCH ×2 (09:58→21:40)
--- NOTE | 2017-08-04 12:28 | PN ---
Progress Note, Physician Chief Complaint: [pt wants to go back to [place] No active bleeding no distress - Current Medication List Current Medications: Active Medications Acetaminophen (Tylenol -) 325 mg PO Q6H PRN PRN Reason: PAIN LEVEL 1 - 3 Last Admin: 08/03/17 23:31 Dose: 325 mg Atorvastatin Calcium (Lipitor -) [address] [facility] Last Admin: 08/03/17 22:16 Dose: 10 mg Carvedilol (Coreg -) 12.5 mg PO BID [facility] Last Admin: 08/04/17 09:57 Dose: 12.5 mg Diltiazem HCl (Cardizem -) 90 mg PO Q6HPO [facility] Last Admin: 08/04/17 05:54 Dose: 90 mg Docusate Sodium (Colace -) [address] [facility] Last Admin: 08/03/17 22:15 Dose: 300 mg Dorzolamide HCl (Trusopt 2%) 1 drop OS BID [facility] Last Admin: 08/04/17 09:58 Dose: 1 drop Ferrous Sulfate (Feosol -) 325 mg PO Q2D [facility] Last Admin: 08/04/17 09:57 Dose: 325 mg Guaifenesin (Robitussin -) 5 ml PO QID PRN PRN Reason: COUGH Latanoprost (Xalatan 0.005% Eye Drops -) [address] [facility] Last Admin: 08/03/17 22:16 Dose: 1 drop Lisinopril (Prinivil) 2.5 mg PO DAILY [facility] Last Admin: 08/04/17 09:57 Dose: 2.5 mg Multivit/Ca Carb/B Cmplx/FA/Prenat (Nephro-Heather -) [address] [facility] Last Admin: 08/03/17 22:16 Dose: 1 tablet Non-Formulary Medication (Fluocinolone/Shower Cap [Fluocinolone 0.01% Scalp Oil] ) 3 drop AU BID PRN PRN Reason: ECZEMATOID OTITIS EXTERNA Ofloxacin (Floxin Otic (Ear) Solution -) 2 drop AD DAILY [facility] Last Admin: 08/04/17 09:57 Dose: 2 drop Pantoprazole Sodium (Protonix -) 40 mg PO DAILY [facility] Last Admin: 08/04/17 09:57 Dose: 40 mg Sevelamer Carbonate (Renvela Powder Packet -) 2.4 gm PO TIDWM [facility] Last Admin: 08/04/17 07:49 Dose: 2.4 gm Timolol Maleate (Timoptic 0.5%) 1 drop OU BID [facility] Last Admin: 08/04/17 09:58 Dose: 1 drop - Objective Vital Signs: Vital Signs Temperature 98.5 F 08/04/17 06:00 Pulse Rate 77 08/04/17 10:00 Respiratory Rate 20 08/04/17 10:00 Blood Pressure 119/56 08/04/17 10:00 O2 Sat by Pulse Oximetry (%) 96 08/03/17 22:00 Constitutional: Yes: No Distress Cardiovascular: Yes: Regular Rate and Rhythm Respiratory: Yes: Diminished Gastrointestinal: Yes: Normal Bowel Sounds, Soft. No: Tenderness Edema: No Labs: CBC, BMP 08/04/17 09:15 08/02/17 11:46 INR, PTT INR 1.12 (0.82-1.09) D 08/02/17 11:46 Problem List - Problems (1) Anemia Code(s): D64.9 - ANEMIA, UNSPECIFIED Qualifiers: Anemia type: unspecified type Qualified Code(s): D64.9 - Anemia, unspecified (2) Anemia requiring transfusions Code(s): D64.9 - ANEMIA, UNSPECIFIED (3) ESRD (end stage renal disease) on dialysis Code(s): N18.6 - END STAGE RENAL DISEASE; Z99.2 - DEPENDENCE ON RENAL DIALYSIS (4) Afib Code(s): I48.91 - UNSPECIFIED ATRIAL FIBRILLATION Qualifiers: Atrial fibrillation type: persistent Qualified Code(s): I48.1 - Persistent atrial fibrillation Assessment/Plan PLAN Previous h.o gi bleeding-- pt was admitted in [facility] at that time-- required transfusions At that admission- Coumadin was dc He is not on any anticoagulants Unsure if he had endoscopic procedures done H/HCT stable Cardiology eval
--- NOTE | 2017-08-04 16:56 | CONS ---
DATE OF CONSULTATION: 08/04/2017 CARDIOLOGY CONSULTATION REQUESTED BY: Eddi Jennings MD The patient is an 87-year-old gentleman with history of hypertension, hypertensive cardiovascular disease, history of end-stage renal disease, hemodialysis dependent, history of anemia, hypercholesterolemia, cerebrovascular accident as noted in the PCP's history, atrial fibrillation, history of GI bleeding, and is legally blind. On questioning, he has had occasional anterior pressure-like chest discomfort with exertion. There is also history of intermittent lightheadedness and dizziness with change in posture. No history of presyncope or syncope. Has had mild dyspnea with exertion. Denies having paroxysmal nocturnal dyspnea or orthopnea. History of intermittent palpitation described as "skips." No history of persistent palpitations reported. No history of diabetes mellitus. No history of rheumatic fever. Denies having pedal edema. PAST HISTORY: As mentioned in the history of present illness. SURGICAL HISTORY: Status post gastrectomy for bleeding peptic ulcer disease many years ago; history of bilateral cataract extraction. 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 He is , has 2 daughters. He used to be a heavy smoker, stopped several years ago. He used to drink heavily, which he also discontinued several years ago. No history of excessive use of caffeine. FAMILY HISTORY: The patient is unsure of the cause of both his parents demises. He had 6 brothers and 6 sisters; all of them are except for 1 brother. Cause of their demises is not known. ALLERGIES: None reported. CURRENT MEDICATIONS: 1. Prinivil 2.5 mg p.o. daily. 2. Carvedilol 12.5 mg p.o. b.i.d. 3. Timolol maleate 1 drop each eye b.i.d. 4. Diltiazem 90 mg p.o. q.6 h. 5. Trusopt 2% one drop b.i.d. 6. Colace 300 mg p.o. daily. 7. Robitussin 5 mL p.o. q.i.d. 8. Atorvastatin 10 mg p.o. nightly. 9. Iron supplement 325 mg every other day. 10. Latanoprost 0.005% one drop each eye nightly. 11. Protonix 40 mg p.o. daily. 12. Renvela powder 2.4 g p.o. t.i.d. with meals. 13. Floxin otic solution 2 drops to right ear daily. 14. Nephro-Heather 1 tablet p.o. nightly. ALLERGIES: None reported. REVIEW OF SYSTEMS: Constitutional: No history of chills, fever or night sweats. No history of unintentional weight loss. HEENT: No history of recent headaches. Patient is legally blind. History of bilateral glaucoma. No history of epistaxis or hoarseness. No history of tinnitus or deafness. Cardiovascular: See history of present illness. Respiratory: History of intermittent cough which is nonproductive. No history of hemoptysis. Denies having tuberculosis. Gastrointestinal: No history of nausea, vomiting, melena, or hematemesis. No history of abdominal pain or discomfort reported. No history of change in bowel habits. Central Nervous System: History of cerebrovascular accident, as mentioned in the hospital record. No history of confusion, seizures, or syncope. No focal weakness reported. Endocrine: No history of polyuria or polydipsia. No history of intolerance to cold or warm weather. Musculoskeletal: Denies having arthralgias or myalgias. Hematological: See history of present illness. Requiring multiple transfusions. EXAMINATION: General: An 87-year-old alert gentleman who is in no acute distress. There was no pallor, cyanosis, clubbing, or jaundice. Vital Signs: Blood pressure 119/56 mmHg. Pulse 77 beats per minute and regular. Respirations 20 per minute. Temperature 98.5 degrees Fahrenheit. Weight was not recorded. Neck: Supple. No jugular venous distention. Hepatojugular reflux was negative. Left carotid was 3+, right carotid was 2+. There was faint radiational murmur versus bruit involving the right carotid, and there was a prominent bruit versus radiational murmur involving the left carotid artery. No thyromegaly was present. Heart: PMI was in the 5th intercostal space. No heaves or thrills. S1 was normal. S2, A2 slightly reduced. Ejection systolic murmur grade 2/6 was heard at the 2nd right intercostal space ending in mid systole. Murmur was also heard along the left sternal border. There was a faint early diastolic murmur heard in the lower left sternal border and there was a decrescendo grade 2/6 apical systolic murmur. No gallops were heard. Lungs. Clear on auscultation. Chest: Normal AP diameter. Expansion was symmetrical. Abdomen: Soft, nontender. No hepatosplenomegaly or palpable masses were felt. Bowel sounds are present. Unable to appreciate any bruits. Extremities: No calf tenderness or dependent edema. Femoral pulses were 2+, dorsalis pedis pulses were weak to 1+, posterior tibial pulses were not palpable. There was an AV fistula involving the left upper extremity with an appropriate bruit. LABORATORY DATA: CBC, August 02, 2017: WBC count was 5600, hemoglobin was 5.4 g, platelet count was 250,000. A repeat CBC on August 04, 2017, following blood transfusion, WBC count was 8300, hemoglobin was 9.2 g/dL. Platelet count was 189,000. Chemistry, August 02, 2017: Sodium 134, potassium 4.3, chloride 96, CO2 27 mmol/L, BUN 27, creatinine 7.6 mg/dL, calcium 8.7 mg/dL, magnesium was 2.5 mg/dL. AST 26, ALT 24, alkaline phosphatase 140. CK 63, troponin 0.03. X-RAY OF CHEST: Impression: Large heart, retrocardiac changes, sclerotic unfolded aorta, left arm vascular stent. ELECTROCARDIOGRAM: Atrial tachycardia versus slow atrial flutter with 2:1 to 3:1 AV conduction. Occasional unifocal and single anomalous premature QRS complexes, most likely relating ventricular ectopy. Nonspecific ST and T abnormalities. ECHOCARDIOGRAM INTERPRETATION SUMMARY: There is focal calcification involving the right coronary cusp. There is mild aortic stenosis. The DEXTER was 1.1 cm sq with a maximum peak gradient of 29.9 mmHg and a mean peak gradient of 15.2 mmHg. The left ventricle is normal in size. There is mild concentric left ventricular hypertrophy. The left ventricular systolic function is normal. No regional wall motion abnormalities noted. There is mild mitral annular calcification. There is moderate mitral regurgitation. The tricuspid valve is normal in structure and function. There is mild to moderate tricuspid regurgitation. Moderate to severe pulmonary hypertension. The pulmonary artery systolic pressure is 58 mmHg. Mild aortic regurgitation. IMPRESSION: 1. Aortic valvular disease with mild to moderate aortic stenosis. 2. Auscultative findings compatible with aortic regurgitation. 3. Mitral valvular disease with mitral regurgitation. 4. Tricuspid regurgitation. 5. Moderate to severe pulmonary hypertension. 6. Slow atrial flutter versus atrial tachycardia with AV conduction. 7. Ventricular premature beats. 8. Severe anemia. Etiology of blood loss needs to be determined. 9. Intermittent exertional chest discomfort compatible with coronary artery disease, angina pectoris, partly related to severe anemia. 10. Carotid artery disease needs to be excluded. 11. Intermittent nonproductive cough, may be related to angiotensin-converting enzyme inhibitors. 12. Bilateral legal blindness. 13. Glaucoma. 14. End-stage renal disease, hemodialysis dependent. 15. History of partial lightheadedness, most probably related to anemia and/or partial drop in blood pressure. RECOMMENDATIONS: 1. If patient continues to have recurring chest discomfort after he has had transfusion, consider cautious increase in the dose of metoprolol. 2. Continue current medications. 3. Carotid ultrasound. 4. Consider switching to an ARB in the presence of non. 5. Follow up ECG. Thank you for your referral. Yours sincerely, HAFSA BEARDEN M.D. [id number]
--- NOTE | 2017-08-04 18:55 | PN ---
Progress Note (short form) - Note Progress Note: Renal follow up for ESRD on HD Pt seen and examine at the bedside awake and alert [place] to go back to [place] denies any sob, chest pain, abd pain Vital Signs Temperature 98.3 F 08/04/17 18:00 Pulse Rate 85 08/04/17 18:00 Respiratory Rate 18 08/04/17 18:00 Blood Pressure 156/80 08/04/17 18:00 O2 Sat by Pulse Oximetry (%) 96 08/03/17 22:00 Intake & Output 08/01/17 08/02/17 08/03/17 08/04/17 23:59 23:59 23:59 23:59 Intake Total 1100 1190 250 Output Total 0 0 1 Balance 1100 1190 249 Weight 59.874 kg NAD awake and alert RRR no LE edema CBC, BMP 08/04/17 09:15 08/02/17 11:46 Current Medications Acetaminophen (Tylenol -) 325 mg PO Q6H PRN PRN Reason: PAIN LEVEL 1 - 3 Last Admin: 08/03/17 23:31 Dose: 325 mg Atorvastatin Calcium (Lipitor -) 10 mg PO HS [facility] Last Admin: 08/03/17 22:16 Dose: 10 mg Carvedilol (Coreg -) 12.5 mg PO BID [facility] Last Admin: 08/04/17 09:57 Dose: 12.5 mg Diltiazem HCl (Cardizem -) 90 mg PO Q6HPO [facility] Last Admin: 08/04/17 17:30 Dose: 90 mg Docusate Sodium (Colace -) 300 mg PO [facility] Last Admin: 08/03/17 22:15 Dose: 300 mg Dorzolamide HCl (Trusopt 2%) 1 drop OS BID [facility] Last Admin: 08/04/17 09:58 Dose: 1 drop Ferrous Sulfate (Feosol -) 325 mg PO Q2D [facility] Last Admin: 08/04/17 09:57 Dose: 325 mg Guaifenesin (Robitussin -) 5 ml PO QID PRN PRN Reason: COUGH Latanoprost (Xalatan 0.005% Eye Drops -) 1 drop OU HS [facility] Last Admin: 08/03/17 22:16 Dose: 1 drop Lisinopril (Prinivil) 2.5 mg PO DAILY [facility] Last Admin: 08/04/17 09:57 Dose: 2.5 mg Multivit/Ca Carb/B Cmplx/FA/Prenat (Nephro-Heather -) 1 tablet PO HS [facility] Last Admin: 08/03/17 22:16 Dose: 1 tablet Non-Formulary Medication (Fluocinolone/Shower Cap [Fluocinolone 0.01% Scalp Oil] ) 3 drop AU BID PRN PRN Reason: ECZEMATOID OTITIS EXTERNA Ofloxacin (Floxin Otic (Ear) Solution -) 2 drop AD DAILY [facility] Last Admin: 08/04/17 09:57 Dose: 2 drop Pantoprazole Sodium (Protonix -) 40 mg PO DAILY [facility] Last Admin: 08/04/17 09:57 Dose: 40 mg Sevelamer Carbonate (Renvela Powder Packet -) 2.4 gm PO TIDWM [facility] Last Admin: 08/04/17 17:30 Dose: 2.4 gm Timolol Maleate (Timoptic 0.5%) 1 drop OU BID [facility] Last Admin: 08/04/17 09:58 Dose: 1 drop 87 year old gentleman with PMhx of ESRD on HD (TTS at [facility]), Afib ( off A/C), Hypertension, Chronic Anemia from CKD, HLD who was sent to the ED after outpatient labs done at dialysis showed a Hgb of 5.4. #Acute Anemia with + stool guiac pt with good response to 4 PRBC transfusion Pt and family do not want to proceed with EGD #ESRD on HD next dialysis is planned for tomorrow #Hypertension Continue Lisinopril, Coreg, Diltiazem #Afib continue rate control with Diltiazem off A/C because of bleeding risk Oh Shell DO
[2017-08-04] MEDS: DOCUSATE SODIUM 100 MG CAPSULE (FP) PO SCH (21:39)
[2017-08-04] MEDS: ATORVASTATIN CA 10 MG TABLET (FP) PO SCH (21:40)
[2017-08-04] MEDS: VITAMIN B COMP W-C 1 EA TABLET PO SCH (21:40)
[2017-08-04] MEDS: LATANOPROST 0.005% OPHTH SOLN 2.5ML BOTTLE OU SCH (21:40)
[2017-08-05 00:06] LABS: HBSAG SCREEN Negative (Negative); HEP A AB, IGM Negative (Negative); HEP B CORE AB, TOT Negative (Negative)
[2017-08-05] MEDS: dilTIAZem HCL 30 MG TABLET (FP) PO SCH ×4 (00:56→17:33)
[2017-08-05 08:03] LABS: HEMATOCRIT 24.2 % (35.4-49); HEMOGLOBIN 8.5 GM/dL (11.7-16.9); MCH 31.8 pg (25.7-33.7); MCHC 35.1 g/dl (32.0-35.9); MEAN CELL VOLUME 90.7 fl (80-96); MEAN PLT VOLUME 7.7 fl (7.5-11.1); PLATELET COUNT 177 K/MM3 (134-434); RBC 2.67 M/mm3 (4.00-5.60); RDW 16.9 % (11.9-15.9); WHITE BLOOD COUNT 8.2 K/mm3 (4.0-10.0)
[2017-08-05] MEDS ORDERED: PT OWN MED DRAWER 7, Y5N ONE ×2 (08:09→12:52)
[2017-08-05] MEDS: SEVELAMER CARBONATE 2.4 GM POWDER PACKET PO SCH ×3 (08:10→17:33)
[2017-08-05] MEDS: CARVEDILOL 12.5 MG TABLET (FP) PO SCH ×2 (09:39→13:01)
[2017-08-05] MEDS: DORZOLAMIDE 2% HCL OPHTHALMIC SOLUTION 10 ML BOTTLE OS SCH (09:40)
[2017-08-05] MEDS: TIMOLOL 0.5% OPHTHALMIC SOL 5 ML BOTTLE OU SCH (09:40)
[2017-08-05] MEDS: OFLOXACIN 0.3% OTIC SOLUTION 5 ML BOTTLE AD SCH ×2 (09:40→12:59)
[2017-08-05] MEDS: PANTOPRAZOLE 40 MG TABLET (FP) PO SCH ×2 (09:40→12:54)
[2017-08-05] MEDS: LISINOPRIL 5 MG TABLET (FP) PO SCH ×2 (09:40→12:58)
[2017-08-05 09:50] LABS: ANION GAP 10 (8-16); BLOOD UREA NITROGEN 51 mg/dL (7-18); CALCIUM 8.4 mg/dL (8.5-10.1); CHLORIDE 101 mmol/L (98-107); CO2 26 mmol/L (21-32); GLUCOSE,RANDOM 180 mg/dL (74-106); POTASSIUM 3.5 mmol/L (3.5-5.1); SODIUM 137 mmol/L (136-145)
--- NOTE | 2017-08-05 09:51 | PN ---
Progress Note (short form) - Note Progress Note: d/w Dr. Jennings yesterday. Mr. Rodarte's daughter reluctant to have him undergo procedures. Please recall as needed Problem List - Problems (1) Unspecified abdominal pain Code(s): R10.9 - UNSPECIFIED ABDOMINAL PAIN Qualifiers: Abdominal location: upper abdomen, unspecified Qualified Code(s): R10.10 - Upper abdominal pain, unspecified
[2017-08-05 10:00] LABS: PHOSPHOROUS 2.8 mg/dL (2.5-4.9)
[2017-08-05 10:38] LABS: CREATININE 8.2 mg/dL (0.7-1.3)
--- NOTE | 2017-08-05 11:31 | DS ---
Physical Examination Vital Signs: Vital Signs Temperature 97.4 F L 08/05/17 08:25 Pulse Rate 72 08/05/17 09:30 Respiratory Rate 18 08/05/17 09:30 Blood Pressure 134/80 08/05/17 09:30 O2 Sat by Pulse Oximetry (%) 96 08/05/17 08:15 Constitutional: Yes: No Distress Cardiovascular: Yes: Regular Rate and Rhythm Respiratory: Yes: Diminished Gastrointestinal: Yes: Normal Bowel Sounds, Soft. No: Tenderness Edema: No Labs: CBC, BMP 08/05/17 07:15 08/05/17 08:30 Discharge Summary Reason For Visit: ANEMIA; END STAGE RENAL DISEASE ON DIALYSIS Current Active Problems Anemia (Acute) Anemia requiring transfusions (Acute) ESRD (end stage renal disease) on dialysis (Acute) GI bleed (Acute) Glaucoma (Acute) Unspecified abdominal pain (Acute) Hospital Course: Admitted for anemia transfused PRBC stool guaic positive seen by GI-- recommended EGD and colonoscopy pt and daughter defers GI interventions at this time Hb better Stable for dc to NH Condition: Fair - Instructions Referrals: Eddi Jennings MD [Primary Care Provider] - [facility] - Home Medications Comprehensive Discharge Medication List: Ambulatory Orders Acetaminophen [Tylenol] 325 mg PO Q6H PRN 10/28/15 Docusate Sodium [Colace -] 300 mg PO HS 10/28/15 Ferrous Sulfate [Feosol] 325 mg PO Q48H 10/28/15 Pantoprazole Sodium [Protonix] 40 mg PO DAILY 10/28/15 Atorvastatin Ca [Lipitor] 10 mg PO HS tablet 05/22/16 Carvedilol 12.5 mg PO Q12H 08/02/17 Diltiazem [Cardizem -] 90 mg PO Q6H 08/02/17 Dorzolamide HCl [Trusopt 2% -] 1 drop OS BID 08/02/17 Fluocinolone/Shower Cap [Fluocinolone 0.01% Scalp Oil] 3 drop AU BID PRN Guaifenesin [Brandy-Tussin] 200 mg PO QID PRN 08/02/17 Latanoprost 0.005% Eye Drops [Xalatan 0.005% Eye Drops -] 1 drop OU HS 08/02/17 Lisinopril [Zestril] 2.5 mg PO DAILY 08/02/17 Ofloxacin Otic [Floxin Otic -] 2 drop OD DAILY 08/02/17 Sevelamer Carbonate [Renvela Powder Packet -] 2.4 gm PO TIDWM 08/02/17 Timolol 0.5% [Timoptic 0.5%] 1 drop OU BID 08/02/17 Vitamin B Comp W-C [Nephro-Heather -] 0.8 mg PO HS 08/02/17
[2017-08-05] MEDS: ACETAMINOPHEN 325 MG TABLET (FP) PO PRN (13:07)
[2017-08-05 14:33] VITALS: BP 129/56; PULSE 91; TEMP 97.6
--- NOTE | 2017-08-05 18:07 | PN ---
Progress Note (short form) - Note Progress Note: Renal follow up for ESRD on HD Pt seen and examine at the bedside s/p dialysis earlier today no acute complaints wants to go back to the [place] pt and family do not want to have any GI procedures Vital Signs Temperature 98.3 F 08/04/17 18:00 Pulse Rate 85 08/04/17 18:00 Respiratory Rate 18 08/04/17 18:00 Blood Pressure 156/80 08/04/17 18:00 O2 Sat by Pulse Oximetry (%) 96 08/03/17 22:00 Intake & Output 08/01/17 08/02/17 08/03/17 08/04/17 23:59 23:59 23:59 23:59 Intake Total 1100 1190 250 Output Total 0 0 1 Balance 1100 1190 249 Weight 59.874 kg NAD awake and alert RRR no LE edema CBC, BMP 08/05/17 07:15 08/05/17 08:30 87 year old gentleman with PMhx of ESRD on HD (TTS at [facility]), Afib ( off A/C), Hypertension, Chronic Anemia from CKD, HLD who was sent to the ED after outpatient labs done at dialysis showed a Hgb of 5.4. #Acute Anemia with + stool guiac Hgb improved s/p transfusion pt and family do not want to have any diagnostic procedures done will trend H/H weekly with HD #ESRD on HD s/p dialysis earlier today #Hypertension Continue Lisinopril, Coreg, Diltiazem #Afib continue rate control with Diltiazem off A/C because of bleeding risk Oh Shell DO
== END 2017-08-05 17:30 | DRG 811 ==
LOC: JER 10:08 → JERBED 13:17 → J6S 15:31 → OBSVTOIN 16:49
PROVIDERS: ADMIT Internal Medicine; ATTEND Internal Medicine
PROC: 30233N1 Transfusion of Nonautologous Red Blood Cells into Peripheral Vein, Percutaneous Approach (ICD-10-PCS; principal; 2017-08-02)
PROC: 5A1D70Z Performance of Urinary Filtration, Intermittent, Less than 6 Hours Per Day (ICD-10-PCS; 2017-08-03)
PROC: 5A1D70Z Performance of Urinary Filtration, Intermittent, Less than 6 Hours Per Day (ICD-10-PCS; 2017-08-05)
DX: D64.9 Anemia, unspecified (principal); N18.6 End stage renal disease; I12.0 Hypertensive chronic kidney disease with stage 5 chronic kidney disease or end stage renal disease; E87.1 Hypo-osmolality and hyponatremia; I48.1 Persistent atrial fibrillation; K92.2 Gastrointestinal hemorrhage, unspecified; I48.91 Unspecified atrial fibrillation; G30.9 Alzheimer's disease, unspecified; R10.10 Upper abdominal pain, unspecified; F02.80 Dementia in other diseases classified elsewhere, unspecified severity, without behavioral disturbance, psychotic disturbance, mood disturbance, and anxiety; H40.9 Unspecified glaucoma; D63.8 Anemia in other chronic diseases classified elsewhere; Z86.73 Personal history of transient ischemic attack (TIA), and cerebral infarction without residual deficits; Z99.2 Dependence on renal dialysis; Z87.891 Personal history of nicotine dependence
CPT/HCPCS: 36415; 36430; 36511; 71045-TC-FY; 80048; 80053; 82272; 82550; 83735; 84100; 84484; 85025; 85027; 85610; 85730; 86704; 86706; 86708; 86850; 86900; 86901; 86922; 87340; 93005; 93010; 93306-TC; 97116-GP; 97161-GP; 99284-25; G0378; P9038; P9058

== ENCOUNTER 2018-01-31 03:33 | Inpatient (IN) | payer OTHER ==
--- NOTE | 2018-01-31 03:45 | PDOC ---
Attending Attestation - Physicial Exam PE: 01/31/18 06:39 ADULT EXAM GENERAL: Awake, alert, and fully oriented, in no acute distress HEAD: No signs of trauma EYES: PERRLA, EOMI, sclera anicteric, conjunctiva clear ENT: Auricles normal inspection, hearing grossly normal, nares patent, oropharynx clear without exudates. Moist mucosa NECK: Normal ROM, supple, no lymphadenopathy, JVD, or masses LUNGS: Breath sounds equal, clear to auscultation bilaterally. No wheezes, and no crackles HEART: (+) Holosystolic murmur. Regular rate and rhythm, normal S1 and S2, rubs or gallops ABDOMEN: (+) Gasy on the left side. Soft, nontender, normoactive bowel sounds. No guarding, no rebound. No masses EXTREMITIES: Normal range of motion, no edema. No clubbing or cyanosis. No cords, erythema, or tenderness NEUROLOGICAL: Cranial nerves II through XII grossly intact. Normal speech, normal gait SKIN: Warm, Dry, normal turgor, no rashes or lesions noted. <Ute Lucia - Last Filed: 01/31/18 06:39> - Resident Resident Name: Gabriela Tomlinson - ED Attending Attestation I have performed the following: I have examined & evaluated the patient, The case was reviewed & discussed with the resident, I agree w/resident's findings & plan - HPI HPI: 01/31/18 06:45 Pt comes with AV fistula bleeding in the NH; here he was found to have a fever from NH - Medical Decision Making 01/31/18 06:[address] scan abd/pelvis Pt's labs demonstrate elevated WBC count. Known ESRD 01/31/18 06:45 Pt will be treated with zosyn and admitted for fever workup. 01/31/18 06:59 Patient Name: YESICA LEE THIS IS A PRELIMINARY REPORT FROM [facility] DATE OF SERVICE: 2018-01-31 06:06:36 IMAGES: 400 EXAM: CT abdomen and pelvis without contrast HISTORY: Abdominal pain nausea. Question infection. Looking for source. COMPARISON: No prior scans have been transmitted for comparison. FINDINGS: No bowel obstruction or inflammation.: Diverticulosis. No diverticulitis. Multiple bilateral renal stones. There are also multiple calcifications along the renal medulla bilaterally and actually calcifications along joseph of the proximal ureters. Uncertain significance. Multiple bilateral renal cysts are noted. Somewhat denser complex. Followup recommended. No urinary tract obstruction. Tiny right and left liver lesions probably cysts. Too small to characterize. Normal spleen. Normal pancreas. Normal adrenal glands. No obvious gallbladder abnormalities. Nonobstructing bilateral inguinal hernias. Extensive vascular calcification. Osseous structures are intact. Moderate left pleural effusion with associated compressive atelectasis. Small right pleural effusion with associated compressive atelectasis. 7.7 mm noncalcified nodule right middle lobe. Recommend followup according to established criteria. More superiorly is a partially calcified 1 cm nodule incompletely included on the scan. Cardiomegaly. Been out prosthesis noted. Individualized dose optimization techniques were used for this CT. THIS DOCUMENT HAS BEEN ELECTRONICALLY SIGNED 02/01/18 00:53 Admitted for ABX and fever workup <Connie Schaffer - Last Filed: 02/01/18 00:53>
--- NOTE | 2018-01-31 04:08 | PDOC ---
History of Present Illness - General Chief Complaint: AV shunt bleeding Stated Complaint: BLEEDING/VOMITTING Time Seen by Provider: 01/31/18 03:35 History Source: Patient Exam Limitations: Dementia - History of Present Illness Initial Comments: 01/31/18 04:03 Pt is an 87yo m with PMH of ESRD on hemodialysis, Afib, CVA, HTN, HLD BIBA from [facility] with a bleed from fistula. According to pt, bleed started today. He goes to dialysis T,,Sat and had no problems on Wednesday. Pt says he has been having some chest pain, SOB, cough productive of white sputum, nausea and abdominal pain. He has chills in the ED but he denies fever, chills at home. He is not on any blood thinners. Pt says he occasionally uses oxygen when he feels short of breath. PMH: see hpi PSH: [email or web address] Allergies: nkda Meds: see med rec Past History - Past Medical History Allergies/Adverse Reactions: Allergies Allergy/AdvReac Type Severity Reaction Status Date / Time No Known Allergies Allergy Verified 01/31/18 03:43 Home Medications: Ambulatory Orders Acetaminophen [Tylenol] 325 mg PO Q6H PRN 10/28/15 Docusate Sodium [Colace -] 300 mg PO HS 10/28/15 Ferrous Sulfate [Feosol] 325 mg PO Q48H 10/28/15 Pantoprazole Sodium [Protonix] 40 mg PO DAILY 10/28/15 Atorvastatin Ca [Lipitor] 10 mg PO HS tablet 05/22/16 Carvedilol 12.5 mg PO Q12H 08/02/17 Diltiazem [Cardizem -] 90 mg PO Q6H 08/02/17 Dorzolamide HCl [Trusopt 2% -] 1 drop OS BID 08/02/17 Fluocinolone/Shower Cap [Fluocinolone 0.01% Scalp Oil] 3 drop AU BID PRN Guaifenesin [Brandy-Tussin] 200 mg PO QID PRN 08/02/17 Latanoprost 0.005% Eye Drops [Xalatan 0.005% Eye Drops -] 1 drop OU HS 08/02/17 Lisinopril [Zestril] 2.5 mg PO DAILY 08/02/17 Ofloxacin Otic [Floxin Otic -] 2 drop OD DAILY 08/02/17 Sevelamer Carbonate [Renvela Powder Packet -] 2.4 gm PO TIDWM 08/02/17 Timolol 0.5% [Timoptic 0.5%] 1 drop OU BID 08/02/17 Vitamin B Comp W-C [Nephro-Heather -] 0.8 mg PO HS 08/02/17 Anemia: No Asthma: No Cancer: No Cardiac Disorders: No CVA: No COPD: No CHF: No Dementia: Yes (alzheimers) Diabetes: No Dialysis: Yes GI Disorders: No Disorders: No HTN: Yes Hypercholesterolemia: Yes Liver Disease: No Seizures: No Thyroid Disease: No - Surgical History Neurologic Surgery: No - Immunization History Immunization Up to Date: No - Suicide/Smoking/Psychosocial Hx Smoking Status: Yes Smoking History: Unknown if ever smoked Years of Tobacco Use: 22 Have you smoked in the past 12 months: No Number of Cigarettes Smoked Daily: 0 If you are a former smoker, when did you quit?: Over 5 years ago Hx Alcohol Use: No Drug/Substance Use Hx: No Substance Use Type: None Hx Substance Use Treatment: No Review of Systems - Review of Systems Constitutional: Yes: Chills. No: Fever HEENTM: No: Blurred Vision, Recent change in vision, Double Vision, Nose Congestion Respiratory: Yes: See HPI, Cough, Shortness of Breath. No: Hemoptysis Cardiac (ROS): Yes: Chest Pain ABD/GI: Yes: Nausea, Vomiting, Abdominal cramping. No: Constipated, Diarrhea : Yes: Other (pt states he is unable to produce urine) Neurological: No: Headache, Numbness, Paresthesia, Tingling *Physical Exam - Vital Signs Last Vital Signs Temp Pulse Resp BP Pulse Ox 99.8 F H 55 L 18 154/78 99 01/31/18 03:43 01/31/18 03:43 01/31/18 03:43 01/31/18 03:43 01/31/18 03:43 - Physical Exam Comments: 01/31/18 04:08 Pt saturating 100% on 4L nc, shivering 01/31/18 04:10 General Appearance: Yes: Appropriately Dressed, Apparent Distress, Thin HEENT: positive: EOMI, LAUREL. negative: Pharyngeal Erythema, Tonsillar Exudate, Tonsillar Erythema Neck: positive: Trachea midline, Supple. negative: Lymphadenopathy (R), Lymphadenopathy (L) Respiratory/Chest: positive: Wheezing. negative: Normal Breath Sounds (in bilateral lung lira) Cardiovascular: positive: Regular Rhythm, Regular Rate, S1, S2, Systolic Murmur. negative: JVD Vascular Pulses: Dorsalis-Pedis (R): 2+, Doralis-Pedis (L): 2+ Comments:: 01/31/18 04:12 thrill palpated AV fistula. radial pulses palpable Gastrointestinal/Abdominal: positive: Normal Bowel Sounds, Soft, Tenderness (in all quadrants). negative: Distended, Guarding, Rebound Male Genitalia: positive: normal genitalia. negative: testicular tenderness, testicular mass Musculoskeletal: negative: CVA Tenderness Extremity: positive: Normal Capillary Refill, Other (Fistula was not bleeding at first. Pt started to spit up and fistula started to bleed. Placed pressure and bleeding stopped. ) Integumentary: positive: Normal Color, Dry, Warm Neurologic: positive: dining car hop II-XII NML intact, Alert, Normal Mood/Affect, Normal Response, Motor Strength / ED Treatment Course - LABORATORY CBC & Chemistry Diagram: 01/31/18 04:30 01/31/18 05:23 - RADIOLOGY Radiology Studies Ordered: Category Date Time Status CHEST X-RAY PORTABLE* [RAD] Stat Radiology 01/31/18 03:56 Ordered Medical Decision Making - Medical Decision Making 01/31/18 04:15 Pt is an 87yo m with PMH of ESRD on hemodialysis, Afib, CVA, HTN, HLD BIBA from [facility] with a bleed from fistula. Pt hemodynamically stable. Saturating 100% on 4L nc. Tachypneic in the high 20s / low 30s. Hr in the 60s. normotensive. 1. AV shunt bleeding. Will place pressure and reevaluate. -no overlying erythema. low suspicion for cellulitis. 2. Chills. Will do rectal temp. labs ordered. 01/31/18 05:03 Rectal temp 102.0 EKG- compared to December ekg, no new changes. 01/31/18 05:06 Pt says he cannot produce urine. Tried to straight cath to collect urine but no urine could be collected. CURB-65: Bun elevated (ESRD), was tachypneic in low 30s, but is in the 20s now. over the age of 65. 3 positive= high risk. 01/31/18 06:48 Pt will be admitted to morning team/ Dr. Jennings 01/31/18 07:00 *DC/Admit/Observation/Transfer Diagnosis at time of Disposition: Pneumonia Qualifiers: Pneumonia type: due to unspecified organism Laterality: unspecified laterality Lung location: unspecified part of lung Qualified Code(s): J18.9 - Pneumonia, unspecified organism - Discharge Dispostion Condition at time of disposition: Stable Decision to Admit order: Yes - Referrals Referrals: Eddi Jennings MD [Primary Care Provider] - - Patient Instructions - Post Discharge Activity
[2018-01-31 04:42] LABS: BASO % 0.5 % (0-2.0); EOS % 0.6 % (0-4.5); HEMATOCRIT 38.9 % (35.4-49); HEMOGLOBIN 12.9 GM/dL (11.7-16.9); LYMPH % 2.5 % (8-40); MCH 29.4 pg (25.7-33.7); MCHC 33.2 g/dl (32.0-35.9); MEAN CELL VOLUME 88.7 fl (80-96); MEAN PLT VOLUME 8.6 fl (7.5-11.1); MONO % 3.4 % (3.8-10.2); PLATELET COUNT 164 K/MM3 (134-434); RBC 4.38 M/mm3 (4.00-5.60); RDW 18.8 % (11.9-15.9); WHITE BLOOD COUNT 10.3 K/mm3 (4.0-10.0)
[2018-01-31] MEDS ORDERED: PANTOPRAZOLE SODIUM 40 MG VIAL IVPUSH ONE (04:44)
[2018-01-31] MEDS ORDERED: PANTOPRAZOLE SODIUM 40 MG/100 ML BAG IVPB ONE (05:21)
[2018-01-31] MEDS ORDERED: ACETAMINOPHEN INJECTION 100 ML IVPB ONE (05:21)
[2018-01-31 05:27] LABS: PLATELET ESTIMATE ADEQUATE
[2018-01-31 05:56] LABS: ANION GAP 13 MMOL/L (8-16); BILIRUBIN,TOTAL 0.6 mg/dL (0.2-1.0); BLOOD UREA NITROGEN 36 mg/dL (7-18); CALCIUM 7.8 mg/dL (8.5-10.1); CHLORIDE 100 mmol/L (98-107); CO2 24 mmol/L (21-32); GLUCOSE,RANDOM 135 mg/dL (74-106); LIPASE 190 U/L (73-393); POTASSIUM 3.9 mmol/L (3.5-5.1); SGOT/AST 20 U/L (15-37); SGPT/ALT 39 U/L (12-78); SODIUM 137 mmol/L (136-145); TOT PROT 6.8 g/dl (6.4-8.2)
[2018-01-31 05:59] LABS: ALK PHOS 173 U/L (45-117)
[2018-01-31 06:12] LABS: CREATININE 7.7 mg/dL (0.7-1.3)
[2018-01-31] MEDS ORDERED: PIPERACILLIN/TAZOB 3.375 GM 3.375 GM in DEXTROSE 5%-WATER - 50 ML IVPB ONE (06:15)
[2018-01-31] MEDS ORDERED: PIPERACILLIN/TAZOB 3.375 GM 3.375 GM/50 ML BAG IVPB ONE (06:30)
[2018-01-31] MEDS ORDERED: ACETAMINOPHEN 1000 MG/100 ML VIAL (NON FORMULARY) IVPB ONE (06:36)
--- NOTE | 2018-01-31 07:08 | PDOC ---
*Physical Exam - Vital Signs Last Vital Signs Temp Pulse Resp BP Pulse Ox 102.0 F H 63 19 160/73 100 01/31/18 05:10 01/31/18 04:51 01/31/18 04:51 01/31/18 04:51 01/31/18 04:51 - Physical Exam Comments: 01/31/18 07:14 Appearance: comfortable. HEENT: head is normocephalic, atraumatic. Neck: supple. Heart: regular rhythm. murmur noted. Lungs: Right lower crackles. No wheezing. Abdomen: soft, nontender. normal bowel sounds. no rebound, guarding, masses. Extremities: Peripheral pulses intact. No lower extremity edema. Neurological: Alert. Oriented x3. CN 2-12 grossly intact. Moves all four extremities. ED Treatment Course - LABORATORY CBC & Chemistry Diagram: 01/31/18 04:30 01/31/18 05:23 - ADDITIONAL ORDERS Additional order review: Laboratory Results 01/31/18 01/31/18 01/31/18 05:23 04:30 04:30 Sodium 137 Cancelled Potassium 3.9 Cancelled Chloride 100 Cancelled Carbon Dioxide 24 Cancelled Anion Gap 13 Cancelled BUN 36 H Cancelled Creatinine 7.7 H* Cancelled Creat Clearance w eGFR 6.72 Cancelled Random Glucose 135 H D Cancelled Lactic Acid 1.7 Calcium 7.8 L Cancelled Total Bilirubin 0.6 Cancelled AST 20 D Cancelled ALT 39 D Cancelled Alkaline Phosphatase 173 H Cancelled Creatine Kinase 61 Cancelled Troponin I 0.03 Cancelled Total Protein 6.8 Cancelled Albumin 3.0 L Cancelled Lipase 190 Cancelled 01/31/18 04:30 RBC 4.38 MCV 88.7 MCHC 33.2 RDW 18.8 H MPV 8.6 D Neutrophils % 93.0 H D Lymphocytes % 2.5 L D Monocytes % 3.4 L Eosinophils % 0.6 Basophils % 0.5 - Medications Given in the ED: ED Medications Discontinued Medications Generic Name Dose Route Start Last Admin Trade Name Freq PRN Reason Stop Dose Admin Acetaminophen 1,000 mg 01/31/18 06:36 01/31/18 06:00 Ofirmev Injection - IVPB 01/31/18 06:37 1,000 mg ONCE ONE Administration Piperacillin Sod/Tazobactam 50 mls @ 100 mls/hr 01/31/18 06:15 01/31/18 06:30 Sod 3.375 gm/ Dextrose IVPB 01/31/18 06:44 100 mls/hr ONCE ONE Administration Protocol Pantoprazole Sodium 40 mg 01/31/18 04:44 01/31/18 05:05 Protonix Iv IVPUSH 01/31/18 04:45 40 mg ONCE ONE Administration Medical Decision Making - Medical Decision Making 01/31/18 07:03 I received sign out from Dr. Tomlinson. I will take over care for this patient. 87 year old male with PMH ESRD seen in ED for AV shunt bleeding, SOB, productive cough, general malaise. On arrival pt was tachypneic and hypoxic. Found to have fever of 102F. Workup negative other than possible right lower lobe pneumonia on CXR. CT abdomen pelvis negative. Pt receieved Zosyn, Protonix and Tylenol in ED. Pt is satting well on 2L nasal cannula. Pt was signed out to the admitting team. Awaiting admission. *DC/Admit/Observation/Transfer Diagnosis at time of Disposition: End stage renal disease Pneumonia Qualifiers: Pneumonia type: due to unspecified organism Laterality: unspecified laterality Lung location: unspecified part of lung Qualified Code(s): J18.9 - Pneumonia, unspecified organism - Discharge Dispostion Condition at time of disposition: Stable - Referrals Referrals: Eddi Jennings MD [Primary Care Provider] - - Patient Instructions - Post Discharge Activity
--- NOTE | 2018-01-31 10:19 | EKG ---
Test Reason : Blood Pressure : / mmHG Vent. Rate : 059 BPM Atrial Rate : 234 BPM P-R Int : 000 ms QRS Dur : 094 ms QT Int : 398 ms P-R-T Axes : 267 077 064 degrees QTc Int : 394 ms POOR DATA QUALITY, INTERPRETATION MAY BE ADVERSELY AFFECTED ATRIAL FLUTTER WITH VARIABLE A-V BLOCK NONSPECIFIC ST ABNORMALITY ABNORMAL ECG WHEN COMPARED WITH ECG OF 02-AUG-2017 11:04, PREMATURE VENTRICULAR COMPLEXES NO LONGER SEEN Confirmed by CHUCK BERTRAND MD ([id number]) on 01/31/2018 10:18:39 AM Referred By: Confirmed By:CHUCK BERTRAND MD
[2018-01-31] MEDS ORDERED: [UNRECOGNIZED DRUG - OTHER] AU PRN (11:52)
[2018-01-31] MEDS ORDERED: ACETAMINOPHEN 325 MG TABLET (FP) PO PRN (11:52)
[2018-01-31] MEDS ORDERED: FLUOCINOLONE AU PRN (11:52)
[2018-01-31] MEDS ORDERED: ALBUTEROL SO4 0.083% IH SOL 2.5 MG/3 ML VIAL.NEB. NEB PRN (11:54)
--- NOTE | 2018-01-31 11:57 | HP ---
Admitting History and Physical - Primary Care Physician PCP: Eddi Jennings - Admission History of Present Illness: Pt is an 87yo m with PMH of ESRD on hemodialysis, Afib, CVA, HTN, HLD BIBA from [facility] with a bleed from fistula. 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: Yes: Dementia Cardiovascular: Yes: AFIB, HTN, Hyperlipdemia Renal/: Yes: Hemodialysis (CKD) Heme/Onc: Yes: Anemia - Past Surgical History Past Surgical History: Yes: Joint Replacement - Smoking History Smoking history: Unknown if ever smoked Have you smoked in the past 12 months: No Aproximately how many cigarettes per day: 0 If you are a former smoker, when did you quit?: Over 5 years ago - Alcohol/Substance Use Hx Alcohol Use: No History of Substance Use: reports: None - Social History ADL: Support Services 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 History of Recent Travel: No Home Medications - Allergies Allergies/Adverse Reactions: Allergies Allergy/AdvReac Type Severity Reaction Status Date / Time No Known Allergies Allergy Verified 01/31/18 03:43 - Home Medications Home Medications: Ambulatory Orders Acetaminophen [Tylenol] 325 mg PO Q6H PRN 10/28/15 Docusate Sodium [Colace -] 300 mg PO HS 10/28/15 Ferrous Sulfate [Feosol] 325 mg PO Q48H 10/28/15 Pantoprazole Sodium [Protonix] 40 mg PO DAILY 10/28/15 Carvedilol 12.5 mg PO Q12H 08/02/17 Diltiazem [Cardizem -] 90 mg PO Q6H 08/02/17 Dorzolamide HCl [Trusopt 2% -] 1 drop OS BID 08/02/17 Fluocinolone/Shower Cap [Fluocinolone 0.01% Scalp Oil] 3 drop AU BID PRN Guaifenesin [Brandy-Tussin] 200 mg PO QID PRN 08/02/17 Latanoprost 0.005% Eye Drops [Xalatan 0.005% Eye Drops -] 1 drop OU HS 08/02/17 Lisinopril [Zestril] 2.5 mg PO DAILY 08/02/17 Ofloxacin Otic [Floxin Otic -] 2 drop OD DAILY 08/02/17 Sevelamer Carbonate [Renvela Powder Packet -] 2.4 gm PO TIDWM 08/02/17 Timolol 0.5% [Timoptic 0.5%] 1 drop OU BID 08/02/17 Vitamin B Comp W-C [Nephro-Heather -] 0.8 mg PO HS 08/02/17 Albuterol 0.083% Nebulizer Kierra [Ventolin 0.083% Nebulizer Soln -] 1 neb NEB Q6H 01/31/18 Atorvastatin Ca [Lipitor] 40 mg PO HS 01/31/18 Melatonin 3 mg PO HS 01/31/18 Sevelamer Carbonate [Renvela] 800 mg PO TID 01/31/18 Family Disease History - Family Disease History Family Disease History: Other: Father (: unclear cause), Mother (: 50: complications from HTN), Brother (6, 1 alive: Does not know the cause of their deaths), Sister (6, : Does not know the cause of ), Daughter (2, healthy) Review of Systems Findings/Remarks: see [place] Physical Examination Vital Signs: Vital Signs Temperature 98.4 F 01/31/18 07:05 Pulse Rate 65 01/31/18 07:05 Respiratory Rate 19 01/31/18 07:05 Blood Pressure 160/73 01/31/18 07:05 O2 Sat by Pulse Oximetry (%) 100 01/31/18 07:05 Constitutional: Yes: No Distress, Other (week) Eyes: Yes: Conjunctiva Clear, PERRL HENT: Yes: WNL Neck: Yes: Supple, Trachea Midline, Other (no JVD) Cardiovascular: Yes: Pulse Irregular. No: Regular Rate and Rhythm Respiratory: Yes: Diminished Gastrointestinal: Yes: Soft Edema: No Integumentary: Yes: Other (AV fistula--- no active bleeding noted.) Neurological: Yes: Alert Labs: CBC, BMP 01/31/18 04:30 01/31/18 05:23 Imaging - Results Chest X-ray: Report Reviewed Cat Scan: Report Reviewed EKG: Report Reviewed Problem List - Problems (1) End stage renal disease Code(s): N18.6 - END STAGE RENAL DISEASE (2) Pneumonia Code(s): J18.9 - PNEUMONIA, UNSPECIFIED ORGANISM Qualifiers: Pneumonia type: due to unspecified organism Laterality: unspecified laterality Lung location: unspecified part of lung Qualified Code(s): J18.9 - Pneumonia, unspecified organism (3) Afib Code(s): I48.91 - UNSPECIFIED ATRIAL FIBRILLATION Qualifiers: Atrial fibrillation type: persistent Qualified Code(s): I48.1 - Persistent atrial fibrillation (4) ESRD (end stage renal disease) on dialysis Code(s): N18.6 - END STAGE RENAL DISEASE; Z99.2 - DEPENDENCE ON RENAL DIALYSIS (5) Glaucoma Code(s): H40.9 - UNSPECIFIED GLAUCOMA Assessment/Plan Patient received Zosyn in the emergency room Fever of 102 in the ER--- cultures were taken Continue on Zosyn--- Follow-up cultures Continue other medications Discussed with ID Dialysis as per renal and also discussed with renal Dr. Oh Cole Monitor for any AV fistula issues next hemodialysis tomorrow Will follow
[2018-01-31] MEDS ORDERED: dilTIAZem HCL 60 MG TABLET (FP) PO SCH (12:00)
[2018-01-31] MEDS ORDERED: dilTIAZem HCL 30 MG TABLET (FP) ONE ×2 (13:03→16:48)
[2018-01-31] MEDS ORDERED: dilTIAZem HCL 60 MG TABLET (FP) ONE ×2 (13:03→16:49)
[2018-01-31] MEDS: DILTIAZEM 60 MG, DILTIAZEM 30 MG PO SCH ×2 (13:04→17:01)
[2018-01-31] MEDS: FERROUS SO4 325 MG TABLET (FP) PO SCH (13:05)
[2018-01-31] MEDS: CARVEDILOL 12.5 MG TABLET (FP) PO SCH ×2 (13:05→21:38)
--- NOTE | 2018-01-31 13:13 | CON.ID ---
Consult Consult Specialty:: infectious diseases Referred by:: Reason for Consultation:: fever - History of Present Illness Chief Complaint: bleeding from fistula site History of Present Illness: 87yo m with PMH of ESRD on hemodialysis, Afib, CVA, HTN, HLD BIBA from [facility] with a bleed from fistula.according to the patient he does not know why is he here patients bleeding was controlled with pressure Patient in the er was worked up and found to ahve a fever of 102 patient was given abx in the ER currently patient is doing well and has no complaints all his work up is still pending - History Source History Provided By: Patient, Medical Record Limitations to Obtaining History: Poor Historian - Past Medical History METAPHYSICIST: Yes: Dementia Cardio/Vascular: Yes: AFIB, HTN, Hyperlipdemia Renal/: Yes: Hemodialysis (CKD) - Past Surgical History Past Surgical History: Yes: Joint Replacement - Alcohol/Substance Use Hx Alcohol Use: No History of Substance Use: reports: None - Smoking History Smoking history: Unknown if ever smoked Have you smoked in the past 12 months: No Aproximately how many cigarettes per day: 0 If you are a former smoker, when did you quit?: Over 5 years ago - Social History Usual Living Arrangement: Alf ADL: Support Services 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 History of Recent Travel: No Home Medications - Allergies Allergies/Adverse Reactions: Allergies Allergy/AdvReac Type Severity Reaction Status Date / Time No Known Allergies Allergy Verified 01/31/18 03:43 - Home Medications Home Medications: Ambulatory Orders Acetaminophen [Tylenol] 325 mg PO Q6H PRN 10/28/15 Docusate Sodium [Colace -] 300 mg PO HS 10/28/15 Ferrous Sulfate [Feosol] 325 mg PO Q48H 10/28/15 Pantoprazole Sodium [Protonix] 40 mg PO DAILY 10/28/15 Carvedilol 12.5 mg PO Q12H 08/02/17 Diltiazem [Cardizem -] 90 mg PO Q6H 08/02/17 Dorzolamide HCl [Trusopt 2% -] 1 drop OS BID 08/02/17 Fluocinolone/Shower Cap [Fluocinolone 0.01% Scalp Oil] 3 drop AU BID PRN Guaifenesin [Brandy-Tussin] 200 mg PO QID PRN 08/02/17 Latanoprost 0.005% Eye Drops [Xalatan 0.005% Eye Drops -] 1 drop OU HS 08/02/17 Lisinopril [Zestril] 2.5 mg PO DAILY 08/02/17 Ofloxacin Otic [Floxin Otic -] 2 drop OD DAILY 08/02/17 Sevelamer Carbonate [Renvela Powder Packet -] 2.4 gm PO TIDWM 08/02/17 Timolol 0.5% [Timoptic 0.5%] 1 drop OU BID 08/02/17 Vitamin B Comp W-C [Nephro-Heather -] 0.8 mg PO HS 08/02/17 Albuterol 0.083% Nebulizer Kierra [Ventolin 0.083% Nebulizer Soln -] 1 neb NEB Q6H 01/31/18 Atorvastatin Ca [Lipitor] 40 mg PO HS 01/31/18 Melatonin 3 mg PO HS 01/31/18 Sevelamer Carbonate [Renvela] 800 mg PO TID 01/31/18 Family Disease History - Family Disease History Family Disease History: Other: Father (: unclear cause), Mother (: 50: complications from HTN), Brother (6, 1 alive: Does not know the cause of their deaths), Sister (6, : Does not know the cause of ), Daughter (2, healthy) Review of Systems - Review of Systems Constitutional: reports: Fever. denies: Chills Eyes: reports: No Symptoms HENT: reports: No Symptoms Neck: reports: No Symptoms Cardiovascular: reports: No Symptoms Respiratory: reports: No Symptoms Gastrointestinal: reports: No Symptoms Genitourinary: reports: No Symptoms Musculoskeletal: reports: Other (bleeding from av fistula site) Integumentary: reports: No Symptoms Neurological: reports: No Symptoms Endocrine: reports: No Symptoms Hematology/Lymphatic: reports: No Symptoms Psychiatric: reports: No Symptoms Physical Exam Vital Signs: Vital Signs Temperature 98.9 F 01/31/18 12:00 Pulse Rate 89 01/31/18 12:00 Respiratory Rate 20 01/31/18 12:00 Blood Pressure 138/64 01/31/18 12:00 O2 Sat by Pulse Oximetry (%) 99 01/31/18 12:00 Constitutional: Yes: No Distress, Calm, Thin Eyes: Yes: Conjunctiva Clear HENT: Yes: Atraumatic, Normocephalic Neck: Yes: Supple, Trachea Midline Cardiovascular: Yes: Pulse Irregular Respiratory: Yes: Regular, CTA Bilaterally Gastrointestinal: Yes: Normal Bowel Sounds, Soft Musculoskeletal: Yes: WNL Extremities: Yes: WNL Wound/Incision: Yes: Clean/Dry Neurological: Yes: Alert, Oriented Psychiatric: Yes: Alert, Oriented Labs: CBC, BMP 01/31/18 04:30 01/31/18 05:23 Imaging - Results Chest X-ray: Report Reviewed, Image Reviewed Cat Scan: Report Reviewed, Image Reviewed Assessment/Plan Problem List - Problems (1) End stage renal disease Code(s): N18.6 - END STAGE RENAL DISEASE (2) Pneumonia Code(s): J18.9 - PNEUMONIA, UNSPECIFIED ORGANISM Qualifiers: Pneumonia type: due to unspecified organism Laterality: unspecified laterality Lung location: unspecified part of lung Qualified Code(s): J18.9 - Pneumonia, unspecified organism (3) Afib Code(s): I48.91 - UNSPECIFIED ATRIAL FIBRILLATION Qualifiers: Atrial fibrillation type: persistent Qualified Code(s): I48.1 - Persistent atrial fibrillation (4) ESRD (end stage renal disease) on dialysis Code(s): N18.6 - END STAGE RENAL DISEASE; Z99.2 - DEPENDENCE ON RENAL DIALYSIS (5) Glaucoma Code(s): H40.9 - UNSPECIFIED GLAUCOMA Assessment/Plan continue zosyn await for all cx report dialysis as per renal monitor for any further bleeding
[2018-01-31] MEDS: SEVELAMER CARBONATE 2.4 GM POWDER PACKET PO SCH ×2 (14:19→16:34)
--- NOTE | 2018-01-31 15:04 | CONSULT ---
Consult - text type - Consultation Consultation Note: Renal Consult for ESRD on HD This is a 87 year old gentleman with Hx of ESRD on HD (TTS), Hypertension, Afib , CVA, Hx of GI bleed who presented with bleeding from AVF site. PMhx: As above Allergies: NKDA Family Hx: NC Social Hx: No T/A/D ROS: as per HPI Home Medications Medication Instructions Recorded Acetaminophen [Tylenol] 325 mg PO Q6H PRN 10/28/15 Docusate Sodium [Colace -] 300 mg PO HS 10/28/15 Ferrous Sulfate [Feosol] 325 mg PO Q48H 10/28/15 Pantoprazole Sodium [Protonix] 40 mg PO DAILY 10/28/15 Carvedilol 12.5 mg PO Q12H 08/02/17 Diltiazem [Cardizem -] 90 mg PO Q6H 08/02/17 Dorzolamide HCl [Trusopt 2% -] 1 drop OS BID 08/02/17 Fluocinolone/Shower Cap 3 drop AU BID PRN 08/02/17 [Fluocinolone 0.01% Scalp Oil] Guaifenesin [Brandy-Tussin] 200 mg PO QID PRN 08/02/17 Latanoprost 0.005% Eye Drops 1 drop OU HS 08/02/17 [Xalatan 0.005% Eye Drops -] Lisinopril [Zestril] 2.5 mg PO DAILY 08/02/17 Ofloxacin Otic [Floxin Otic -] 2 drop OD DAILY 08/02/17 Sevelamer Carbonate [Renvela 2.4 gm PO TIDWM 08/02/17 Powder Packet -] Timolol 0.5% [Timoptic 0.5%] 1 drop OU BID 08/02/17 Vitamin B Comp W-C [Nephro-Heather -] 0.8 mg PO HS 08/02/17 Albuterol 0.083% Nebulizer Kierra 1 neb NEB Q6H 01/31/18 [Ventolin 0.083% Nebulizer Soln -] Atorvastatin Ca [Lipitor] 40 mg PO HS 01/31/18 Melatonin 3 mg PO HS 01/31/18 Sevelamer Carbonate [Renvela] 800 mg PO TID 01/31/18 Vital Signs Temperature 99.5 F 01/31/18 14:55 Pulse Rate 75 01/31/18 14:55 Respiratory Rate 20 01/31/18 14:55 Blood Pressure 153/64 01/31/18 14:55 O2 Sat by Pulse Oximetry (%) 99 01/31/18 12:00 Intake & Output 01/28/18 01/29/18 01/30/18 01/31/18 23:59 23:59 23:59 23:59 Weight 59.965 kg NAD awake and alert MMM, no JVD, neck supple RRR, No M/R CTA, no rales or wheeze soft NT/ND no LE edema left arm avg with no active bleeding CBC, BMP 01/31/18 04:30 01/31/18 05:23 Current Medications Acetaminophen (Tylenol -) 325 mg PO Q6H PRN PRN Reason: PAIN Last Admin: 01/31/18 13:54 Dose: 325 mg Albuterol Sulfate (Ventolin 0.083% Nebulizer Soln -) 1 amp NEB Q4H PRN PRN Reason: SHORT OF BREATH/WHEEZING Atorvastatin Calcium (Lipitor -) 10 mg PO HS [facility] Carvedilol (Coreg -) 12.5 mg PO BID [facility] Last Admin: 01/31/18 13:05 Dose: 12.5 mg Diltiazem HCl 60 mg/ Diltiazem (HCl 30 mg) 90 mg PO Q6HPO [facility] Last Admin: 01/31/18 13:04 Dose: 90 mg Docusate Sodium (Colace -) 300 mg PO HS [facility] Dorzolamide HCl (Trusopt 2%) 1 drop OS BID [facility] Ferrous Sulfate (Feosol -) 325 mg PO Q2D [facility] Last Admin: 01/31/18 13:05 Dose: 325 mg Latanoprost (Xalatan 0.005% Eye Drops -) 1 drop OU HS [facility] Lisinopril (Prinivil) 2.5 mg PO DAILY [facility] Non-Formulary Medication (Fluocinolone/Shower Cap [Fluocinolone 0.01% Scalp Oil] ) 3 drop AU BID PRN PRN Reason: ECZEMATOID OTITIS EXTERNA Ofloxacin (Floxin Otic (Ear) Solution -) 2 drop AD DAILY [facility] Pantoprazole Sodium (Protonix -) 40 mg PO DAILY [facility] Sevelamer Carbonate (Renvela Powder Packet -) 2.4 gm PO TIDWM [facility] Last Admin: 01/31/18 14:19 Dose: 2.4 gm Timolol Maleate (Timoptic 0.5%) 1 drop OU BID [facility] 87 year old gentleman with Hx of ESRD on HD (TTS), Hypertension, Afib, CVA, Hx of GI bleed who presented with bleeding from AVF site. #ESRD on HD #bleeding from access site #Fever #N/V no acute indication for [employer]OR [employer]TER today next dialysis planned for tomorrow s/p recent vascular eval of AVG and no problems noted f/u cultures Abx as per ID oral intake as tolerated
[2018-01-31] MEDS ORDERED: ONDANSETRON 4 MG/2 ML VIAL IVPUSH PRN (15:09)
[2018-01-31] MEDS: ACETAMINOPHEN 325 MG TABLET (FP) PO PRN (16:56)
[2018-01-31] MEDS ORDERED: DEXTROSE 5%-WATER - 50 ML IVPB ONE (18:50)
[2018-01-31] MEDS ORDERED: PIPERACILLIN/TAZOBACTAM 2.25 GM VIAL IVPB ONE (18:50)
[2018-01-31] MEDS: PIPERACILLIN/TAZOB 2.25 GM 2.25 GM in DEXTROSE 5%-WATER - 50 ML IVPB SCH (18:50)
[2018-01-31] MEDS ORDERED: PT OWN MED DRAWER 7, Y5N ONE (21:27)
[2018-01-31] MEDS: TIMOLOL 0.5% OPHTHALMIC SOL 5 ML BOTTLE OU SCH (21:38)
[2018-01-31] MEDS: ATORVASTATIN CA 10 MG TABLET (FP) PO SCH (21:38)
[2018-01-31] MEDS: DOCUSATE SODIUM 100 MG CAPSULE (FP) PO SCH (21:38)
[2018-01-31] MEDS: DORZOLAMIDE 2% HCL OPHTHALMIC SOLUTION 10 ML BOTTLE OS SCH (21:39)
[2018-01-31] MEDS: LATANOPROST 0.005% OPHTH SOLN 2.5ML BOTTLE OU SCH (21:39)
[2018-01-31] MEDS: MELATONIN 1 MG TABLET PO SCH (22:58)
[2018-02-01] MEDS ORDERED: dilTIAZem HCL 60 MG TABLET (FP) ONE ×4 (00:11→17:29)
[2018-02-01] MEDS ORDERED: dilTIAZem HCL 30 MG TABLET (FP) ONE ×4 (00:11→17:28)
[2018-02-01] MEDS: DILTIAZEM 60 MG, DILTIAZEM 30 MG PO SCH ×4 (00:28→17:33)
[2018-02-01] MEDS ORDERED: DEXTROSE 5%-WATER - 50 ML IVPB ONE ×2 (01:53→10:50)
[2018-02-01] MEDS ORDERED: PIPERACILLIN/TAZOBACTAM 2.25 GM VIAL IVPB ONE ×2 (01:53→10:50)
[2018-02-01] MEDS: PIPERACILLIN/TAZOB 2.25 GM 2.25 GM in DEXTROSE 5%-WATER - 50 ML IVPB SCH ×2 (01:58→12:33)
[2018-02-01] MEDS ORDERED: PT OWN MED DRAWER 7, Y5N ONE ×5 (07:51→21:36)
[2018-02-01] MEDS: SEVELAMER CARBONATE 2.4 GM POWDER PACKET PO SCH ×3 (08:14→17:33)
[2018-02-01 09:22] LABS: BASO % 0.4 % (0-2.0); EOS % 0.5 % (0-4.5); HEMATOCRIT 31.7 % (35.4-49); HEMOGLOBIN 10.8 GM/dL (11.7-16.9); LYMPH % 3.8 % (8-40); MCH 29.8 pg (25.7-33.7); MCHC 33.9 g/dl (32.0-35.9); MEAN CELL VOLUME 87.8 fl (80-96); MEAN PLT VOLUME 8.6 fl (7.5-11.1); MONO % 2.6 % (3.8-10.2); NEUT % 92.7 % (42.8-82.8); PLATELET COUNT 120 K/MM3 (134-434); RBC 3.61 M/mm3 (4.00-5.60); RDW 18.4 % (11.9-15.9); WHITE BLOOD COUNT 5.7 K/mm3 (4.0-10.0)
[2018-02-01] MEDS ORDERED: SODIUM CHLORIDE 250 ML IV PRN (09:32)
[2018-02-01 09:53] LABS: ALBUMIN 2.5 g/dl (3.4-5.0); ANION GAP 14 MMOL/L (8-16); BLOOD UREA NITROGEN 42 mg/dL (7-18); CHLORIDE 98 mmol/L (98-107); CO2 25 mmol/L (21-32); GLUCOSE,RANDOM 134 mg/dL (74-106); POTASSIUM 3.5 mmol/L (3.5-5.1); SGOT/AST 11 U/L (15-37); SGPT/ALT 27 U/L (12-78); SODIUM 137 mmol/L (136-145)
[2018-02-01] MEDS ORDERED: PANTOPRAZOLE 40 MG TABLET (FP) PO SCH (10:00)
[2018-02-01] MEDS ORDERED: OFLOXACIN 0.3% OTIC SOLUTION 5 ML BOTTLE AD SCH (10:00)
[2018-02-01 10:05] LABS: ALK PHOS 133 U/L (45-117); BILIRUBIN,TOTAL 0.5 mg/dL (0.2-1.0); CALCIUM 8.1 mg/dL (8.5-10.1)
[2018-02-01 10:18] LABS: CREATININE 7.6 mg/dL (0.7-1.3)
--- NOTE | 2018-02-01 10:39 | PN ---
Progress Note (short form) - Note Progress Note: pt seen/ examined in dialysis. No bleeding from fistula / access issues. looks and feels better +ve Blood cultures-- MRSA -- all bottles. Vital Signs Temp 99 F 02/01/18 06:00 Pulse 61 02/01/18 09:50 Resp 18 02/01/18 09:50 BP 152/57 02/01/18 09:50 Pulse Ox 98 01/31/18 21:00 Intake & Output 01/31/18 01/31/18 02/01/18 11:59 23:59 11:59 Intake Total 550 50 Output Total 0 0 Balance 550 50 Weight 107 lb 132 lb 3.2 oz 133 lb 8 oz Intake: IVPB 50 50 Oral 500 Output: Urine 0 0 Void 0 0 Other: Voiding Method Urinal Bowel Movement No Yes Height 5 ft 7 in 5 ft 7 in Body Mass Index (BMI) 16.7 20.7 Weight Measurement Method [facility] Weight Measurement Method Est/Stated by Patient Active Medications Acetaminophen (Tylenol -) 650 mg PO Q4H PRN PRN Reason: HEADACHE Last Admin: 01/31/18 16:56 Dose: 650 mg Albuterol Sulfate (Ventolin 0.083% Nebulizer Soln -) 1 amp NEB Q4H PRN PRN Reason: SHORT OF BREATH/WHEEZING Last Admin: 01/31/18 20:00 Dose: 1 amp Atorvastatin Calcium (Lipitor -) 10 mg PO HS [facility] Last Admin: 01/31/18 21:38 Dose: 10 mg Carvedilol (Coreg -) 12.5 mg PO BID [facility] Last Admin: 01/31/18 21:38 Dose: 12.5 mg Diltiazem HCl 60 mg/ Diltiazem (HCl 30 mg) 90 mg PO Q6HPO [facility] Last Admin: 02/01/18 05:47 Dose: 90 mg Docusate Sodium (Colace -) 300 mg PO HS [facility] Last Admin: 01/31/18 21:38 Dose: 300 mg Dorzolamide HCl (Trusopt 2%) 1 drop OS BID [facility] Last Admin: 01/31/18 21:39 Dose: 1 drp Ferrous Sulfate (Feosol -) 325 mg PO Q2D [facility] Last Admin: 01/31/18 13:05 Dose: 325 mg Piperacillin Sod/Tazobactam (Sod 2.25 gm/ Dextrose) 50 mls @ 100 mls/hr IVPB Q8H-IV [facility]; Protocol Last Admin: 02/01/18 01:58 Dose: 100 mls/hr Vancomycin HCl 1,000 mg/ (Dextrose) 250 mls @ 166.667 mls/hr IVPB ONCE ONE; Protocol Stop: 02/01/18 11:58 Latanoprost (Xalatan 0.005% Eye Drops -) 1 drop OU HS [facility] Last Admin: 01/31/18 21:39 Dose: 1 drp Lisinopril (Prinivil) 2.5 mg PO DAILY [facility] Melatonin (Melatonin) 3 mg PO HS [facility] Last Admin: 01/31/18 22:58 Dose: 3 mg Ondansetron HCl (Zofran Injection) 4 mg IVPUSH Q8H PRN PRN Reason: NAUSEA Last Admin: 01/31/18 15:19 Dose: 4 mg Sevelamer Carbonate (Renvela Powder Packet -) 2.4 gm PO TIDWM [facility] Last Admin: 02/01/18 08:14 Dose: Not Given Timolol Maleate (Timoptic 0.5%) 1 drop OU BID [facility] Last Admin: 01/31/18 21:38 Dose: 1 drop CBC, BMP 02/01/18 08:40 02/01/18 08:40 Microbiology 01/31/18 04:35 Blood Culture - Preliminary Blood - Peripheral Venous Presumptive Mrsa (Pbp2a Pos) 01/31/18 04:35 Blood Culture - Preliminary Blood - Peripheral Venous Presumptive Mrsa (Pbp2a Pos) Physical Examination Constitutional: Yes: No Distress, Eyes: Yes: No icterus HENT: Yes: WNL Neck: Yes: Supple, Trachea Midline, Other (no JVD) Cardiovascular: Yes: Pulse Irregular. No: Regular Rate and Rhythm. Respiratory: Yes: Diminished Gastrointestinal: Yes: Soft. Edema: No Integumentary: Yes: Other (AV fistula--- Neurological: Yes: Alert Assessment/Plan MRSA Bactremia will order vanco -- with dialysis continue other meds Will follow. echo Problem List - Problems (1) End stage renal disease Code(s): N18.6 - END STAGE RENAL DISEASE (2) Pneumonia Code(s): J18.9 - PNEUMONIA, UNSPECIFIED ORGANISM Qualifiers: Pneumonia type: due to unspecified organism Laterality: unspecified laterality Lung location: unspecified part of lung Qualified Code(s): J18.9 - Pneumonia, unspecified organism (3) Afib Code(s): I48.91 - UNSPECIFIED ATRIAL FIBRILLATION Qualifiers: Atrial fibrillation type: persistent Qualified Code(s): I48.1 - Persistent atrial fibrillation (4) ESRD (end stage renal disease) on dialysis Code(s): N18.6 - END STAGE RENAL DISEASE; Z99.2 - DEPENDENCE ON RENAL DIALYSIS (5) Glaucoma Code(s): H40.9 - UNSPECIFIED GLAUCOMA
[2018-02-01] MEDS ORDERED: VANCOMYCIN 1,000 MG in DEXTROSE 5%-WATER - 250 ML IVPB ONE (11:15)
[2018-02-01] MEDS: CARVEDILOL 12.5 MG TABLET (FP) PO SCH ×2 (12:31→22:01)
[2018-02-01] MEDS: ACETAMINOPHEN 325 MG TABLET (FP) PO PRN ×2 (12:31→18:20)
[2018-02-01] MEDS: LISINOPRIL 5 MG TABLET (FP) PO SCH (12:31)
[2018-02-01] MEDS: DORZOLAMIDE 2% HCL OPHTHALMIC SOLUTION 10 ML BOTTLE OS SCH ×2 (12:51→22:00)
[2018-02-01] MEDS: TIMOLOL 0.5% OPHTHALMIC SOL 5 ML BOTTLE OU SCH ×2 (12:52→22:00)
[2018-02-01 12:55] LABS: ANISOCYTOSIS 1+; MACROCYTOSIS 0; PLATELET ESTIMATE DECREASED
--- NOTE | 2018-02-01 14:12 | PN ---
Progress Note, Physician History of Present Illness: patient stable no complaints blood cx positive with mrsa one dose of vanco ordered during dialysis - Current Medication List Current Medications: Active Medications Acetaminophen (Tylenol -) 650 mg PO Q4H PRN PRN Reason: HEADACHE Last Admin: 02/01/18 12:31 Dose: 650 mg Albuterol Sulfate (Ventolin 0.083% Nebulizer Soln -) 1 amp NEB Q4H PRN PRN Reason: SHORT OF BREATH/WHEEZING Last Admin: 01/31/18 20:00 Dose: 1 amp Atorvastatin Calcium (Lipitor -) 10 mg PO HS [facility] Last Admin: 01/31/18 21:38 Dose: 10 mg Carvedilol (Coreg -) 12.5 mg PO BID [facility] Last Admin: 02/01/18 12:31 Dose: 12.5 mg Diltiazem HCl 60 mg/ Diltiazem (HCl 30 mg) 90 mg PO Q6HPO [facility] Last Admin: 02/01/18 12:31 Dose: 90 mg Docusate Sodium (Colace -) 300 mg PO [facility] Last Admin: 01/31/18 21:38 Dose: 300 mg Dorzolamide HCl (Trusopt 2%) 1 drop OS BID [facility] Last Admin: 02/01/18 12:51 Dose: 1 drp Ferrous Sulfate (Feosol -) 325 mg PO Q2D [facility] Last Admin: 01/31/18 13:05 Dose: 325 mg Latanoprost (Xalatan 0.005% Eye Drops -) 1 drop OU [facility] Last Admin: 01/31/18 21:39 Dose: 1 drp Lisinopril (Prinivil) 2.5 mg PO DAILY [facility] Last Admin: 02/01/18 12:31 Dose: 2.5 mg Melatonin (Melatonin) 3 mg PO HS [facility] Last Admin: 01/31/18 22:58 Dose: 3 mg Ondansetron HCl (Zofran Injection) 4 mg IVPUSH Q8H PRN PRN Reason: NAUSEA Last Admin: 01/31/18 15:19 Dose: 4 mg Sevelamer Carbonate (Renvela Powder Packet -) 2.4 gm PO TIDWM [facility] Last Admin: 02/01/18 12:51 Dose: 2.4 gm Timolol Maleate (Timoptic 0.5%) 1 drop OU BID [facility] Last Admin: 02/01/18 12:52 Dose: 1 drop - Objective Vital Signs: Vital Signs Temperature 98.8 F 02/01/18 09:00 Pulse Rate 78 02/01/18 12:00 Respiratory Rate 18 02/01/18 12:00 Blood Pressure 132/56 02/01/18 12:00 O2 Sat by Pulse Oximetry (%) 98 02/01/18 09:00 Constitutional: Yes: No Distress, Calm Eyes: Yes: Conjunctiva Clear Cardiovascular: Yes: Regular Rate and Rhythm Respiratory: Yes: Regular, CTA Bilaterally Gastrointestinal: Yes: Normal Bowel Sounds, Soft Musculoskeletal: Yes: WNL Extremities: Yes: WNL Labs: CBC, BMP 02/01/18 08:40 02/01/18 08:40 Assessment/Plan Problem List - Problems (1) End stage renal disease Code(s): N18.6 - END STAGE RENAL DISEASE (2) Pneumonia Code(s): J18.9 - PNEUMONIA, UNSPECIFIED ORGANISM Qualifiers: Pneumonia type: due to unspecified organism Laterality: unspecified laterality Lung location: unspecified part of lung Qualified Code(s): J18.9 - Pneumonia, unspecified organism (3) Afib Code(s): I48.91 - UNSPECIFIED ATRIAL FIBRILLATION Qualifiers: Atrial fibrillation type: persistent Qualified Code(s): I48.1 - Persistent atrial fibrillation (4) ESRD (end stage renal disease) on dialysis Code(s): N18.6 - END STAGE RENAL DISEASE; Z99.2 - DEPENDENCE ON RENAL DIALYSIS (5) Glaucoma Code(s): H40.9 - UNSPECIFIED GLAUCOMA Assessment/Plan patients cx report noted mrsa d/w urology will need vanco during dialysis and levels monitored will need it for 3 weeks will see what repeat blood cx show if positive again then will do echo
--- NOTE | 2018-02-01 16:09 | PN ---
Progress Note (short form) - Note Progress Note: Renal follow up for ESRD on HD Pt seen and examined at the bedside no acute complaints no further bleeding from AVF site s/p dialysis this am Vital Signs Temperature 98.6 F 02/01/18 14:59 Pulse Rate 70 02/01/18 14:59 Respiratory Rate 18 02/01/18 14:59 Blood Pressure 113/42 02/01/18 14:59 O2 Sat by Pulse Oximetry (%) 98 02/01/18 09:00 Intake & Output 01/29/18 01/30/18 01/31/18 02/01/18 23:59 23:59 23:59 23:59 Intake Total 550 230 Output Total 0 0 Balance 550 230 Weight 59.965 kg 60.555 kg CBC, BMP 02/01/18 08:40 02/01/18 08:40 Current Medications Acetaminophen (Tylenol -) 650 mg PO Q4H PRN PRN Reason: HEADACHE Last Admin: 02/01/18 12:31 Dose: 650 mg Albuterol Sulfate (Ventolin 0.083% Nebulizer Soln -) 1 amp NEB Q4H PRN PRN Reason: SHORT OF BREATH/WHEEZING Last Admin: 01/31/18 20:00 Dose: 1 amp Atorvastatin Calcium (Lipitor -) 10 mg PO HS [facility] Last Admin: 01/31/18 21:38 Dose: 10 mg Carvedilol (Coreg -) 12.5 mg PO BID [facility] Last Admin: 02/01/18 12:31 Dose: 12.5 mg Diltiazem HCl 60 mg/ Diltiazem (HCl 30 mg) 90 mg PO Q6HPO [facility] Last Admin: 02/01/18 12:31 Dose: 90 mg Docusate Sodium (Colace -) 300 mg PO HS [facility] Last Admin: 01/31/18 21:38 Dose: 300 mg Dorzolamide HCl (Trusopt 2%) 1 drop OS BID [facility] Last Admin: 02/01/18 12:51 Dose: 1 drp Ferrous Sulfate (Feosol -) 325 mg PO Q2D [facility] Last Admin: 01/31/18 13:05 Dose: 325 mg Latanoprost (Xalatan 0.005% Eye Drops -) 1 drop OU [facility] Last Admin: 01/31/18 21:39 Dose: 1 drp Lisinopril (Prinivil) 2.5 mg PO DAILY [facility] Last Admin: 02/01/18 12:31 Dose: 2.5 mg Melatonin (Melatonin) 3 mg PO HS [facility] Last Admin: 01/31/18 22:58 Dose: 3 mg Ondansetron HCl (Zofran Injection) 4 mg IVPUSH Q8H PRN PRN Reason: NAUSEA Last Admin: 01/31/18 15:19 Dose: 4 mg Sevelamer Carbonate (Renvela Powder Packet -) 2.4 gm PO TIDWM [facility] Last Admin: 02/01/18 12:51 Dose: 2.4 gm Timolol Maleate (Timoptic 0.5%) 1 drop OU BID [facility] Last Admin: 02/01/18 12:52 Dose: 1 drop 87 year old gentleman with Hx of ESRD on HD (TTS), Hypertension, Afib, CVA, Hx of GI bleed who presented with bleeding from AVF site. #ESRD on HD #bleeding from access site #Fever #N/V Tolerated HD well today found to have gram + bacteremia, to start IV Vanco today repeat blood cultures with next dialysis ID following Oh Shell DO
--- NOTE | 2018-02-01 17:26 | ECHO ---
Name: YESICA LEE Exam:Adult Echocardiogram Study Date: 02/01/2018 02:52 PM Age: 87 yrs Reason For Study: MRSA Height: 67 in Weight: 133 lb BSA: 1.7 m2 MMode/2D Measurements & Calculations IVSd: 1.00 cm Ao root diam: 3.5 cm LVIDd: 4.6 cm LA dimension: 3.5 cm LVIDs: 3.0 cm LVPWd: 0.92 cm EDV(Teich): 96.8 ml TAPSE: 2.2 cm ESV(Teich): 35.9 ml RV S Rich: 6.6 cm/sec Doppler Measurements & Calculations MV E max rich: 92.8 cm/sec Ao V2 max: 270.8 cm/sec MV A max rich: 40.0 cm/sec Ao max P.7 mmHg MV E/A: 2.3 Ao V2 mean: 197.8 cm/sec MV dec time: 0.17 sec Ao mean P.8 mmHg Ao V2 VTI: 57.1 cm AI P1/2t: 468.0 msec AI max rich: 304.1 cm/sec LV V1 max P.4 mmHg AI max P.2 mmHg LV V1 mean P.8 mmHg LV V1 max: 105.1 cm/sec AI dec slope: 190.3 cm/sec2 LV V1 mean: 60.6 cm/sec LV V1 VTI: 18.1 cm MR max rich: 291.8 cm/sec TR max rich: 182.6 cm/sec MR max P.1 mmHg TR max P.3 mmHg Med Peak E' Rich: 7.7 cm/sec Med E/e': 12.1 Lat Peak E' Rich: 7.7 cm/sec Lat E/e': 12.1 Procedure A complete two-dimensional transthoracic echocardiogram was performed (2D, M-mode, Doppler and color flow Doppler). Study Quality: Fair. Left Ventricle The left ventricular size, thickness and function are normal. Ejection Fraction = 55%. Right Ventricle The right ventricle is normal in size and function. Atria The left atrial size is normal. The right atrium is severely dilated. Mitral Valve Calcified mitral apparatus. Tricuspid Valve The tricuspid valve is normal in structure and function. Aortic Valve There is moderate aortic sclerosis.;. Mild aortic regurgitation. Great Vessels The aortic root is normal size. Pericardium/Pleura There is no pericardial effusion. Interpretation Summary No vegetations seen. This does not rule out endocarditis. The left ventricular size, thickness and function are normal The right ventricle is normal in size and function. The right atrium is severely dilated. Calcified mitral apparatus. Ja [place] 02/01/2018 03:56 PM
[2018-02-01] MEDS: DOCUSATE SODIUM 100 MG CAPSULE (FP) PO SCH (22:00)
[2018-02-01] MEDS: LATANOPROST 0.005% OPHTH SOLN 2.5ML BOTTLE OU SCH (22:00)
[2018-02-01] MEDS: ATORVASTATIN CA 10 MG TABLET (FP) PO SCH (22:01)
[2018-02-01] MEDS: MELATONIN 1 MG TABLET PO SCH (22:01)
[2018-02-02] MEDS: DILTIAZEM 60 MG, DILTIAZEM 30 MG PO SCH ×5 (00:02→23:29)
[2018-02-02] MEDS ORDERED: dilTIAZem HCL 30 MG TABLET (FP) ONE ×3 (06:08→23:27)
[2018-02-02] MEDS ORDERED: dilTIAZem HCL 60 MG TABLET (FP) ONE ×3 (06:09→23:27)
[2018-02-02] MEDS: ACETAMINOPHEN 325 MG TABLET (FP) PO PRN (06:17)
[2018-02-02] MEDS ORDERED: PT OWN MED DRAWER 7, Y5N ONE ×3 (08:00→21:06)
[2018-02-02] MEDS: SEVELAMER CARBONATE 2.4 GM POWDER PACKET PO SCH ×3 (08:16→17:42)
--- NOTE | 2018-02-02 10:05 | PN ---
Progress Note (short form) - Note Progress Note: patient seen and examined comfortable Looks and feels better Afebrile Persistent positive blood cultures Patient received a dose of vancomycin with dialysis yesterday Wants to eat--On liquid diet. denies abdominal pain Vital Signs Temp 98 F 02/02/18 06:00 Pulse 92 H 02/02/18 06:00 Resp 20 02/02/18 06:00 BP 140/59 02/02/18 06:00 Pulse Ox 98 02/01/18 22:00 Intake & Output 02/01/18 02/01/18 02/02/18 11:59 23:59 11:59 Intake Total 50 480 500 Output Total 0 0 0 Balance 50 480 500 Weight 133 lb 8 oz 133 lb 8 oz Intake: IVPB 50 Oral 480 500 Output: Urine 0 0 0 Void 0 0 0 Other: Voiding Method Urinal Toilet Bowel Movement Yes Yes: loose # Bowel Movements 3 Weight Measurement Method [facility] Active Medications Acetaminophen (Tylenol -) 650 mg PO Q4H PRN PRN Reason: HEADACHE Last Admin: 02/02/18 06:17 Dose: 650 mg Albuterol Sulfate (Ventolin 0.083% Nebulizer Soln -) 1 amp NEB Q4H PRN PRN Reason: SHORT OF BREATH/WHEEZING Last Admin: 01/31/18 20:00 Dose: 1 amp Atorvastatin Calcium (Lipitor -) 10 mg PO [facility] Last Admin: 02/01/18 22:01 Dose: 10 mg Carvedilol (Coreg -) 12.5 mg PO BID [facility] Last Admin: 02/01/18 22:01 Dose: 12.5 mg Diltiazem HCl 60 mg/ Diltiazem (HCl 30 mg) 90 mg PO Q6HPO [facility] Last Admin: 02/02/18 06:42 Dose: 90 mg Docusate Sodium (Colace -) 300 mg PO [facility] Last Admin: 02/01/18 22:00 Dose: 300 mg Dorzolamide HCl (Trusopt 2%) 1 drop OS BID [facility] Last Admin: 02/01/18 22:00 Dose: 1 drp Ferrous Sulfate (Feosol -) 325 mg PO Q2D [facility] Last Admin: 01/31/18 13:05 Dose: 325 mg Latanoprost (Xalatan 0.005% Eye Drops -) 1 drop OU [facility] Last Admin: 02/01/18 22:00 Dose: 1 drp Lisinopril (Prinivil) 2.5 mg PO DAILY [facility] Last Admin: 02/01/18 12:31 Dose: 2.5 mg Melatonin (Melatonin) 3 mg PO HS [facility] Last Admin: 02/01/18 22:01 Dose: 3 mg Ondansetron HCl (Zofran Injection) 4 mg IVPUSH Q8H PRN PRN Reason: NAUSEA Last Admin: 01/31/18 15:19 Dose: 4 mg Sevelamer Carbonate (Renvela Powder Packet -) 2.4 gm PO TIDWM [facility] Last Admin: 02/02/18 08:16 Dose: 2.4 gm Timolol Maleate (Timoptic 0.5%) 1 drop OU BID [facility] Last Admin: 02/01/18 22:00 Dose: 1 drop CBC, BMP 02/01/18 08:40 02/01/18 08:40 Microbiology 01/31/18 15:15 MRSA Screen - Final Nares - Mrsa Screen - Left NO MRSA ISOLATED 01/31/18 23:20 Blood Culture - Preliminary Blood - Peripheral Venous Pending Organism 01/31/18 23:20 Blood Culture - Preliminary Blood - Peripheral Venous NO GROWTH OBTAINED AFTER 24 HOURS, INCUBATION TO CONTINUE FOR 4 DAYS. 01/31/18 04:35 Blood Culture - Preliminary Blood - Peripheral Venous Presumptive Mrsa (Pbp2a Pos) 01/31/18 04:35 Blood Culture - Preliminary Blood - Peripheral Venous Presumptive Mrsa (Pbp2a Pos) Physical Examination Constitutional: Yes: No Distress, comfortable. Eyes: Yes: No icterus HENT: Yes: WNL Neck: Yes: Supple, Trachea Midline, Other (no JVD) Cardiovascular: Yes: Pulse Irregular. No: Regular Rate and Rhythm. Respiratory: Yes: Diminished Gastrointestinal: Yes: Soft. nontender Edema: No Integumentary: Yes: Other (AV fistula) Neurological: Yes: Alert Assessment/Plan MRSA Bactremia vancomycin--- as per level Advance diet continue other meds echocardiogram--- Already ordered follow-up repeat cultures Will follow. Discussed with ID also MRSA precautions in place Daily out of bed to chair Physical therapy Problem List - Problems (1) End stage renal disease Code(s): N18.6 - END STAGE RENAL DISEASE (2) Pneumonia Code(s): J18.9 - PNEUMONIA, UNSPECIFIED ORGANISM Qualifiers: Pneumonia type: due to unspecified organism Laterality: unspecified laterality Lung location: unspecified part of lung Qualified Code(s): J18.9 - Pneumonia, unspecified organism (3) Afib Code(s): I48.91 - UNSPECIFIED ATRIAL FIBRILLATION Qualifiers: Atrial fibrillation type: persistent Qualified Code(s): I48.1 - Persistent atrial fibrillation (4) ESRD (end stage renal disease) on dialysis Code(s): N18.6 - END STAGE RENAL DISEASE; Z99.2 - DEPENDENCE ON RENAL DIALYSIS (5) Glaucoma Code(s): H40.9 - UNSPECIFIED GLAUCOMA
[2018-02-02] MEDS: TIMOLOL 0.5% OPHTHALMIC SOL 5 ML BOTTLE OU SCH ×2 (10:34→23:00)
[2018-02-02] MEDS: FERROUS SO4 325 MG TABLET (FP) PO SCH (10:34)
[2018-02-02] MEDS: LISINOPRIL 5 MG TABLET (FP) PO SCH (10:34)
[2018-02-02] MEDS: DORZOLAMIDE 2% HCL OPHTHALMIC SOLUTION 10 ML BOTTLE OS SCH ×2 (10:34→23:00)
[2018-02-02] MEDS: CARVEDILOL 12.5 MG TABLET (FP) PO SCH ×2 (10:34→22:59)
--- NOTE | 2018-02-02 13:57 | PN ---
Progress Note, Physician History of Present Illness: stable repeat cx showing positive - Current Medication List Current Medications: Active Medications Acetaminophen (Tylenol -) 650 mg PO Q4H PRN PRN Reason: HEADACHE Last Admin: 02/02/18 06:17 Dose: 650 mg Albuterol Sulfate (Ventolin 0.083% Nebulizer Soln -) 1 amp NEB Q4H PRN PRN Reason: SHORT OF BREATH/WHEEZING Last Admin: 01/31/18 20:00 Dose: 1 amp Atorvastatin Calcium (Lipitor -) 10 mg PO [facility] Last Admin: 02/01/18 22:01 Dose: 10 mg Carvedilol (Coreg -) 12.5 mg PO BID [facility] Last Admin: 02/02/18 10:34 Dose: 12.5 mg Diltiazem HCl 60 mg/ Diltiazem (HCl 30 mg) 90 mg PO Q6HPO [facility] Last Admin: 02/02/18 11:50 Dose: Not Given Docusate Sodium (Colace -) 300 mg PO [facility] Last Admin: 02/01/18 22:00 Dose: 300 mg Dorzolamide HCl (Trusopt 2%) 1 drop OS BID [facility] Last Admin: 02/02/18 10:34 Dose: 1 drp Ferrous Sulfate (Feosol -) 325 mg PO Q2D [facility] Last Admin: 02/02/18 10:34 Dose: 325 mg Latanoprost (Xalatan 0.005% Eye Drops -) 1 drop OU [facility] Last Admin: 02/01/18 22:00 Dose: 1 drp Lisinopril (Prinivil) 2.5 mg PO DAILY [facility] Last Admin: 02/02/18 10:34 Dose: Not Given Melatonin (Melatonin) 3 mg PO [facility] Last Admin: 02/01/18 22:01 Dose: 3 mg Ondansetron HCl (Zofran Injection) 4 mg IVPUSH Q8H PRN PRN Reason: NAUSEA Last Admin: 01/31/18 15:19 Dose: 4 mg Sevelamer Carbonate (Renvela Powder Packet -) 2.4 gm PO TIDWM [facility] Last Admin: 02/02/18 11:54 Dose: 2.4 gm Timolol Maleate (Timoptic 0.5%) 1 drop OU BID [facility] Last Admin: 02/02/18 10:34 Dose: 1 drop - Objective Vital Signs: Vital Signs Temperature 97.8 F 02/02/18 09:00 Pulse Rate 57 L 02/02/18 09:00 Respiratory Rate 20 02/02/18 09:00 Blood Pressure 107/47 02/02/18 09:00 O2 Sat by Pulse Oximetry (%) 100 02/02/18 09:00 Constitutional: Yes: No Distress, Calm Cardiovascular: Yes: Regular Rate and Rhythm Respiratory: Yes: Regular, CTA Bilaterally Gastrointestinal: Yes: Normal Bowel Sounds, Soft Musculoskeletal: Yes: WNL Extremities: Yes: WNL Neurological: Yes: Alert, Oriented Psychiatric: Yes: Alert, Oriented Labs: CBC, BMP 02/01/18 08:40 02/01/18 08:40 Assessment/Plan Problem List - Problems (1) End stage renal disease Code(s): N18.6 - END STAGE RENAL DISEASE (2) Pneumonia Code(s): J18.9 - PNEUMONIA, UNSPECIFIED ORGANISM Qualifiers: Pneumonia type: due to unspecified organism Laterality: unspecified laterality Lung location: unspecified part of lung Qualified Code(s): J18.9 - Pneumonia, unspecified organism (3) Afib Code(s): I48.91 - UNSPECIFIED ATRIAL FIBRILLATION Qualifiers: Atrial fibrillation type: persistent Qualified Code(s): I48.1 - Persistent atrial fibrillation (4) ESRD (end stage renal disease) on dialysis Code(s): N18.6 - END STAGE RENAL DISEASE; Z99.2 - DEPENDENCE ON RENAL DIALYSIS (5) Glaucoma Code(s): H40.9 - UNSPECIFIED GLAUCOMA Assessment/Plan repeat cx positive will order a vanco level stat will send blood cx again await for echo rest as per the team
--- NOTE | 2018-02-02 15:14 | PN ---
Progress Note (short form) - Note Progress Note: Renal follow up for ESRD on HD Pt seen and examined at the bedside no acute complaints no fevers, chills, sob, abd pain Vital Signs Temperature 97.8 F 02/02/18 14:00 Pulse Rate 62 02/02/18 14:00 Respiratory Rate 20 02/02/18 14:00 Blood Pressure 110/51 02/02/18 14:00 O2 Sat by Pulse Oximetry (%) 100 02/02/18 09:00 Intake & Output 01/30/18 01/31/18 02/01/18 02/02/18 23:59 23:59 23:59 23:59 Intake Total 392 592 4396 Output Total 0 0 0 Balance 822 628 7201 Weight 59.965 kg 60.555 kg 60.555 kg NAD awake and alert RRR CTA soft NT/ND no LE edema CBC, BMP 02/01/18 08:40 02/01/18 08:40 Current Medications Acetaminophen (Tylenol -) 650 mg PO Q4H PRN PRN Reason: HEADACHE Last Admin: 02/02/18 06:17 Dose: 650 mg Albuterol Sulfate (Ventolin 0.083% Nebulizer Soln -) 1 amp NEB Q4H PRN PRN Reason: SHORT OF BREATH/WHEEZING Last Admin: 01/31/18 20:00 Dose: 1 amp Atorvastatin Calcium (Lipitor -) 10 mg PO HS [facility] Last Admin: 02/01/18 22:01 Dose: 10 mg Carvedilol (Coreg -) 12.5 mg PO BID [facility] Last Admin: 02/02/18 10:34 Dose: 12.5 mg Diltiazem HCl 60 mg/ Diltiazem (HCl 30 mg) 90 mg PO Q6HPO [facility] Last Admin: 02/02/18 11:50 Dose: Not Given Docusate Sodium (Colace -) 300 mg PO HS [facility] Last Admin: 02/01/18 22:00 Dose: 300 mg Dorzolamide HCl (Trusopt 2%) 1 drop OS BID [facility] Last Admin: 02/02/18 10:34 Dose: 1 drp Ferrous Sulfate (Feosol -) 325 mg PO Q2D [facility] Last Admin: 02/02/18 10:34 Dose: 325 mg Latanoprost (Xalatan 0.005% Eye Drops -) 1 drop OU [facility] Last Admin: 02/01/18 22:00 Dose: 1 drp Lisinopril (Prinivil) 2.5 mg PO DAILY [facility] Last Admin: 02/02/18 10:34 Dose: Not Given Melatonin (Melatonin) 3 mg PO HS [facility] Last Admin: 02/01/18 22:01 Dose: 3 mg Ondansetron HCl (Zofran Injection) 4 mg IVPUSH Q8H PRN PRN Reason: NAUSEA Last Admin: 01/31/18 15:19 Dose: 4 mg Sevelamer Carbonate (Renvela Powder Packet -) 2.4 gm PO TIDWM [facility] Last Admin: 02/02/18 11:54 Dose: 2.4 gm Timolol Maleate (Timoptic 0.5%) 1 drop OU BID [facility] Last Admin: 02/02/18 10:34 Dose: 1 drop 87 year old gentleman with Hx of ESRD on HD (TTS), Hypertension, Afib, CVA, Hx of GI bleed who presented with bleeding from AVF site. #ESRD on HD #bleeding from access site #Fever #N/V #MRSA bacteremia no acute indication for [facility] for dialysis tomorrow will repeat blood cultures tomorrow vanco with HD ID follow up Oh Shell DO
[2018-02-02] MEDS: DOCUSATE SODIUM 100 MG CAPSULE (FP) PO SCH (22:59)
[2018-02-02] MEDS: ATORVASTATIN CA 10 MG TABLET (FP) PO SCH (22:59)
[2018-02-02] MEDS: LATANOPROST 0.005% OPHTH SOLN 2.5ML BOTTLE OU SCH (23:00)
[2018-02-02] MEDS: MELATONIN 1 MG TABLET PO SCH (23:00)
[2018-02-03 00:07] LABS: HBSAG SCREEN Negative (Negative); HEP A AB, IGM Negative (Negative); HEP B CORE AB, TOT Negative (Negative)
[2018-02-03 04:27] VITALS: BMI 20.8
[2018-02-03] MEDS ORDERED: dilTIAZem HCL 60 MG TABLET (FP) ONE ×2 (06:34→14:24)
[2018-02-03] MEDS ORDERED: dilTIAZem HCL 30 MG TABLET (FP) ONE ×2 (06:34→14:23)
[2018-02-03] MEDS: DILTIAZEM 60 MG, DILTIAZEM 30 MG PO SCH ×2 (06:50→13:30)
[2018-02-03] MEDS ORDERED: PT OWN MED DRAWER 7, Y5N ONE ×2 (09:42→21:47)
[2018-02-03 09:54] LABS: HEMATOCRIT 32.7 % (35.4-49); HEMOGLOBIN 10.8 GM/dL (11.7-16.9); MCH 28.9 pg (25.7-33.7); MEAN CELL VOLUME 87.5 fl (80-96); MEAN PLT VOLUME 8.8 fl (7.5-11.1); PLATELET COUNT 145 K/MM3 (134-434); RBC 3.74 M/mm3 (4.00-5.60); RDW 18.6 % (11.9-15.9); WHITE BLOOD COUNT 7.7 K/mm3 (4.0-10.0)
[2018-02-03 10:20] LABS: ANION GAP 12 MMOL/L (8-16); BLOOD UREA NITROGEN 46 mg/dL (7-18); CHLORIDE 92 mmol/L (98-107); CO2 26 mmol/L (21-32); GLUCOSE,RANDOM 153 mg/dL (74-106); PHOSPHOROUS 2.1 mg/dL (2.5-4.9); SODIUM 130 mmol/L (136-145)
[2018-02-03 11:09] LABS: CREATININE 8.7 mg/dL (0.7-1.3)
[2018-02-03] MEDS ORDERED: SODIUM CHLORIDE 250 ML IV PRN (11:23)
--- NOTE | 2018-02-03 11:28 | PN ---
Progress Note (short form) - Note Progress Note: pt seen/ examined in dialysis feels better. no complains Vital Signs Temp 98.6 F 02/03/18 06:17 Pulse 54 L 02/03/18 11:03 Resp 18 02/03/18 11:03 BP 140/58 02/03/18 11:03 Pulse Ox 100 02/02/18 21:00 Intake & Output 02/02/18 02/02/18 02/03/18 11:59 23:59 11:59 Intake Total 500 1000 Output Total 0 Balance 500 1000 Weight 133 lb 8 oz 135 lb 2 oz Intake: Oral 500 1000 Output: Urine 0 Void 0 Other: Voiding Method Toilet # Unmeasured Voids Void 0 0 Bowel Movement Yes No # Bowel Movements 1 Height 5 ft 7 in Body Mass Index (BMI) 20.8 Weight Measurement Method Built in Bedscale Built in Bedscale Active Medications Acetaminophen (Tylenol -) 650 mg PO Q4H PRN PRN Reason: HEADACHE Last Admin: 02/02/18 06:17 Dose: 650 mg Albuterol Sulfate (Ventolin 0.083% Nebulizer Soln -) 1 amp NEB Q4H PRN PRN Reason: SHORT OF BREATH/WHEEZING Last Admin: 01/31/18 20:00 Dose: 1 amp Atorvastatin Calcium (Lipitor -) 10 mg PO HS [facility] Last Admin: 02/02/18 22:59 Dose: 10 mg Carvedilol (Coreg -) 12.5 mg PO BID [facility] Last Admin: 02/02/18 22:59 Dose: 12.5 mg Diltiazem HCl 60 mg/ Diltiazem (HCl 30 mg) 90 mg PO Q6HPO [facility] Last Admin: 02/03/18 06:50 Dose: 90 mg Docusate Sodium (Colace -) 300 mg PO HS [facility] Last Admin: 02/02/18 22:59 Dose: 300 mg Dorzolamide HCl (Trusopt 2%) 1 drop OS BID [facility] Last Admin: 02/02/18 23:00 Dose: Not Given Ferrous Sulfate (Feosol -) 325 mg PO Q2D [facility] Last Admin: 02/02/18 10:34 Dose: 325 mg Vancomycin HCl 1,000 mg/ (Dextrose) 250 mls @ 166.667 mls/hr IVPB ONCE ONE; Protocol Stop: 02/03/18 12:59 Latanoprost (Xalatan 0.005% Eye Drops -) 1 drop OU HS [facility] Last Admin: 02/02/18 23:00 Dose: Not Given Lisinopril (Prinivil) 2.5 mg PO DAILY [facility] Last Admin: 02/02/18 10:34 Dose: Not Given Melatonin (Melatonin) 3 mg PO HS [facility] Last Admin: 02/02/18 23:00 Dose: 3 mg Ondansetron HCl (Zofran Injection) 4 mg IVPUSH Q8H PRN PRN Reason: NAUSEA Last Admin: 01/31/18 15:19 Dose: 4 mg Potassium Phos/Sodium Phos (Phos-Nak Packet -) 1 packet PO TID [facility] Stop: 02/04/18 06:01 Timolol Maleate (Timoptic 0.5%) 1 drop OU BID [facility] Last Admin: 02/02/18 23:00 Dose: Not Given CBC, BMP 02/03/18 09:00 02/03/18 09:00 vanco -- 5.3 Physical Examination Constitutional: Yes: No Distress, comfortable. Eyes: Yes: No icterus HENT: Yes: WNL Neck: Yes: Supple, Trachea Midline, Other (no JVD) Cardiovascular: Yes: Pulse Irregular. No: Regular Rate and Rhythm. Respiratory: Yes: Diminished at bases Gastrointestinal: Yes: Soft. non tender Edema: No Integumentary: Yes: Other (AV fistula) Neurological: Yes: Alert Assessment/Plan MRSA Bactremia vancomycin--- as per level--getting dose with dialysis today continue other meds echocardiogram--- pending Will follow. MRSA precautions in place Daily out of bed to chair Physical therapy. Problem List - Problems (1) End stage renal disease Code(s): N18.6 - END STAGE RENAL DISEASE (2) Pneumonia Code(s): J18.9 - PNEUMONIA, UNSPECIFIED ORGANISM Qualifiers: Pneumonia type: due to unspecified organism Laterality: unspecified laterality Lung location: unspecified part of lung Qualified Code(s): J18.9 - Pneumonia, unspecified organism (3) Afib Code(s): I48.91 - UNSPECIFIED ATRIAL FIBRILLATION Qualifiers: Atrial fibrillation type: persistent Qualified Code(s): I48.1 - Persistent atrial fibrillation (4) ESRD (end stage renal disease) on dialysis Code(s): N18.6 - END STAGE RENAL DISEASE; Z99.2 - DEPENDENCE ON RENAL DIALYSIS (5) Glaucoma Code(s): H40.9 - UNSPECIFIED GLAUCOMA
[2018-02-03] MEDS ORDERED: VANCOMYCIN 1,000 MG in DEXTROSE 5%-WATER - 250 ML IVPB ONE (11:30)
[2018-02-03] MEDS: LISINOPRIL 5 MG TABLET (FP) PO SCH (11:37)
[2018-02-03] MEDS: TIMOLOL 0.5% OPHTHALMIC SOL 5 ML BOTTLE OU SCH ×3 (11:37→22:58)
[2018-02-03] MEDS: CARVEDILOL 12.5 MG TABLET (FP) PO SCH ×2 (11:37→22:15)
[2018-02-03] MEDS: DORZOLAMIDE 2% HCL OPHTHALMIC SOLUTION 10 ML BOTTLE OS SCH ×2 (11:38→22:55)
--- NOTE | 2018-02-03 11:48 | PN ---
Progress Note, Physician History of Present Illness: patient stable no new issues repeat blood cx pending dialysis - Current Medication List Current Medications: Active Medications Acetaminophen (Tylenol -) 650 mg PO Q4H PRN PRN Reason: HEADACHE Last Admin: 02/02/18 06:17 Dose: 650 mg Albuterol Sulfate (Ventolin 0.083% Nebulizer Soln -) 1 amp NEB Q4H PRN PRN Reason: SHORT OF BREATH/WHEEZING Last Admin: 01/31/18 20:00 Dose: 1 amp Atorvastatin Calcium (Lipitor -) 10 mg PO [facility] Last Admin: 02/02/18 22:59 Dose: 10 mg Carvedilol (Coreg -) 12.5 mg PO BID [facility] Last Admin: 02/03/18 11:37 Dose: Not Given Diltiazem HCl 60 mg/ Diltiazem (HCl 30 mg) 90 mg PO Q6HPO [facility] Last Admin: 02/03/18 06:50 Dose: 90 mg Docusate Sodium (Colace -) 300 mg PO [facility] Last Admin: 02/02/18 22:59 Dose: 300 mg Dorzolamide HCl (Trusopt 2%) 1 drop OS BID [facility] Last Admin: 02/03/18 11:38 Dose: Not Given Ferrous Sulfate (Feosol -) 325 mg PO Q2D [facility] Last Admin: 02/02/18 10:34 Dose: 325 mg Vancomycin HCl 1,000 mg/ (Dextrose) 250 mls @ 166.667 mls/hr IVPB ONCE ONE; Protocol Stop: 02/03/18 12:59 Last Admin: 02/03/18 11:34 Dose: 166.667 mls/hr Latanoprost (Xalatan 0.005% Eye Drops -) 1 drop OU [facility] Last Admin: 02/02/18 23:00 Dose: Not Given Lisinopril (Prinivil) 2.5 mg PO DAILY [facility] Last Admin: 02/03/18 11:37 Dose: Not Given Melatonin (Melatonin) 3 mg PO [facility] Last Admin: 02/02/18 23:00 Dose: 3 mg Ondansetron HCl (Zofran Injection) 4 mg IVPUSH Q8H PRN PRN Reason: NAUSEA Last Admin: 01/31/18 15:19 Dose: 4 mg Potassium Phos/Sodium Phos (Phos-Nak Packet -) 1 packet PO TID [facility] Stop: 02/04/18 06:01 Timolol Maleate (Timoptic 0.5%) 1 drop OU BID [facility] Last Admin: 02/03/18 11:37 Dose: Not Given - Objective Vital Signs: Vital Signs Temperature 98.6 F 02/03/18 06:17 Pulse Rate 54 L 02/03/18 11:03 Respiratory Rate 18 02/03/18 11:03 Blood Pressure 140/58 02/03/18 11:03 O2 Sat by Pulse Oximetry (%) 100 02/02/18 21:00 Constitutional: Yes: No Distress, Calm Cardiovascular: Yes: Regular Rate and Rhythm Respiratory: Yes: Regular, CTA Bilaterally Gastrointestinal: Yes: Normal Bowel Sounds, Soft Musculoskeletal: Yes: WNL Extremities: Yes: Other (fistula present) Neurological: Yes: Alert, Oriented Psychiatric: Yes: Alert, Oriented Labs: CBC, BMP 02/03/18 09:00 02/03/18 09:00 Assessment/Plan Problem List - Problems (1) End stage renal disease Code(s): N18.6 - END STAGE RENAL DISEASE (2) Pneumonia Code(s): J18.9 - PNEUMONIA, UNSPECIFIED ORGANISM Qualifiers: Pneumonia type: due to unspecified organism Laterality: unspecified laterality Lung location: unspecified part of lung Qualified Code(s): J18.9 - Pneumonia, unspecified organism (3) Afib Code(s): I48.91 - UNSPECIFIED ATRIAL FIBRILLATION Qualifiers: Atrial fibrillation type: persistent Qualified Code(s): I48.1 - Persistent atrial fibrillation (4) ESRD (end stage renal disease) on dialysis Code(s): N18.6 - END STAGE RENAL DISEASE; Z99.2 - DEPENDENCE ON RENAL DIALYSIS (5) Glaucoma Code(s): H40.9 - UNSPECIFIED GLAUCOMA Assessment/Plan vanco level noted will give a higher dose today repeat vanco level tomorrow rest as per the team continue dialysis
[2018-02-03] MEDS: NAPH,MB-DB/K PH,MBDB POWDER PACKET PO SCH ×2 (14:25→22:15)
[2018-02-03] MEDS ORDERED: VANCOMYCIN 1 GM PREMIX - 1 GM/200 ML BAG IVPB ONE (16:00)
--- NOTE | 2018-02-03 16:01 | PN ---
Progress Note (short form) - Note Progress Note: Renal follow up for ESRD on HD Pt seen and examined during dialysis earlier today tolerated HD well access with good flow UF tolerated well w/o hypotension recieved 1g Vanco today on HD Vital Signs Temperature 98.4 F 02/03/18 14:00 Pulse Rate 94 H 02/03/18 14:00 Respiratory Rate 18 02/03/18 14:00 Blood Pressure 137/60 02/03/18 14:00 O2 Sat by Pulse Oximetry (%) 100 02/02/18 21:00 Intake & Output 01/31/18 02/01/18 02/02/18 02/03/18 23:59 23:59 23:59 23:59 Intake Total 388 997 1805 400 Output Total 0 0 0 Balance 561 608 8418 400 Weight 59.965 kg 60.555 kg 60.555 kg 61.292 kg NAD awake and alert RRR CTA soft NT/ND no LE edema CBC, BMP 02/03/18 09:00 02/03/18 12:45 Current Medications Acetaminophen (Tylenol -) 650 mg PO Q4H PRN PRN Reason: HEADACHE Last Admin: 02/02/18 06:17 Dose: 650 mg Albuterol Sulfate (Ventolin 0.083% Nebulizer Soln -) 1 amp NEB Q4H PRN PRN Reason: SHORT OF BREATH/WHEEZING Last Admin: 01/31/18 20:00 Dose: 1 amp Atorvastatin Calcium (Lipitor -) 10 mg PO HS [facility] Last Admin: 02/02/18 22:59 Dose: 10 mg Carvedilol (Coreg -) 12.5 mg PO BID [facility] Last Admin: 02/03/18 11:37 Dose: Not Given Diltiazem HCl 60 mg/ Diltiazem (HCl 30 mg) 90 mg PO Q6HPO [facility] Last Admin: 02/03/18 13:30 Dose: 90 mg Docusate Sodium (Colace -) 300 mg PO HS [facility] Last Admin: 02/02/18 22:59 Dose: 300 mg Dorzolamide HCl (Trusopt 2%) 1 drop OS BID [facility] Last Admin: 02/03/18 11:38 Dose: Not Given Ferrous Sulfate (Feosol -) 325 mg PO Q2D [facility] Last Admin: 02/02/18 10:34 Dose: 325 mg Vancomycin HCl 1,000 mg/ (Dextrose) 250 mls @ 166.667 mls/hr IVPB ONCE ONE; Protocol Stop: 02/03/18 17:28 Latanoprost (Xalatan 0.005% Eye Drops -) 1 drop OU HS [facility] Last Admin: 02/02/18 23:00 Dose: Not Given Lisinopril (Prinivil) 2.5 mg PO DAILY [facility] Last Admin: 02/03/18 11:37 Dose: Not Given Melatonin (Melatonin) 3 mg PO HS [facility] Last Admin: 02/02/18 23:00 Dose: 3 mg Ondansetron HCl (Zofran Injection) 4 mg IVPUSH Q8H PRN PRN Reason: NAUSEA Last Admin: 01/31/18 15:19 Dose: 4 mg Potassium Phos/Sodium Phos (Phos-Nak Packet -) 1 packet PO TID [facility] Stop: 02/04/18 06:01 Last Admin: 02/03/18 14:25 Dose: 1 packet Timolol Maleate (Timoptic 0.5%) 1 drop OU BID [facility] Last Admin: 02/03/18 11:37 Dose: Not Given 87 year old gentleman with Hx of ESRD on HD (TTS), Hypertension, Afib, CVA, Hx of GI bleed who presented with bleeding from AVF site. #ESRD on HD #bleeding from access site #Fever #N/V #MRSA bacteremia tolerated dialysis well today repeat blood cultures drawn today to get Vanco 2g in total as per ID recs Check Vanco level in AM Trend H/H Renal diet, 1.2L Fluid restriction Oh Shell DO
[2018-02-03] MEDS: ATORVASTATIN CA 10 MG TABLET (FP) PO SCH (22:15)
[2018-02-03] MEDS: MELATONIN 1 MG TABLET PO SCH (22:15)
[2018-02-03] MEDS: DOCUSATE SODIUM 100 MG CAPSULE (FP) PO SCH (22:15)
[2018-02-03] MEDS: LATANOPROST 0.005% OPHTH SOLN 2.5ML BOTTLE OU SCH (22:55)
[2018-02-04] MEDS ORDERED: dilTIAZem HCL 30 MG TABLET (FP) ONE ×3 (06:09→17:48)
[2018-02-04] MEDS ORDERED: dilTIAZem HCL 60 MG TABLET (FP) ONE ×3 (06:09→17:48)
[2018-02-04] MEDS ORDERED: PT OWN MED DRAWER 7, Y5N ONE ×2 (06:12→20:59)
[2018-02-04] MEDS: NAPH,MB-DB/K PH,MBDB POWDER PACKET PO SCH (06:47)
[2018-02-04] MEDS: SEVELAMER CARBONATE 2.4 GM POWDER PACKET PO SCH (08:07)
[2018-02-04] MEDS: DILTIAZEM 60 MG, DILTIAZEM 30 MG PO SCH ×3 (08:07→17:48)
[2018-02-04] MEDS: TIMOLOL 0.5% OPHTHALMIC SOL 5 ML BOTTLE OU SCH ×2 (10:34→21:26)
[2018-02-04] MEDS: LISINOPRIL 5 MG TABLET (FP) PO SCH (10:34)
[2018-02-04] MEDS: CARVEDILOL 12.5 MG TABLET (FP) PO SCH ×2 (10:34→21:26)
[2018-02-04] MEDS: FERROUS SO4 325 MG TABLET (FP) PO SCH (10:34)
[2018-02-04] MEDS: DORZOLAMIDE 2% HCL OPHTHALMIC SOLUTION 10 ML BOTTLE OS SCH ×2 (10:34→21:26)
--- NOTE | 2018-02-04 11:25 | PN ---
Progress Note (short form) - Note Progress Note: patient comfortable feels okay Afebrile denies pain Echocardiogram negative for vegetation Vital Signs Temp 97.5 F L 02/04/18 10:03 Pulse 108 H 02/04/18 10:03 Resp 20 02/04/18 10:03 BP 138/64 02/04/18 10:03 Pulse Ox 98 02/03/18 22:00 Intake & Output 02/03/18 02/03/18 02/04/18 11:59 23:59 11:59 Intake Total 840 Output Total 0 Balance 840 Weight 135 lb 2 oz 127 lb Intake: Oral 840 Output: Urine 0 Void 0 Other: Voiding Method Toilet Toilet # Unmeasured Voids Void 0 0 Bowel Movement No Yes No # Bowel Movements 2 Height 5 ft 7 in Body Mass Index (BMI) 20.8 Weight Measurement Method Built in Bedscale Built in Bedscale Active Medications Acetaminophen (Tylenol -) 650 mg PO Q4H PRN PRN Reason: HEADACHE Last Admin: 02/02/18 06:17 Dose: 650 mg Albuterol Sulfate (Ventolin 0.083% Nebulizer Soln -) 1 amp NEB Q4H PRN PRN Reason: SHORT OF BREATH/WHEEZING Last Admin: 01/31/18 20:00 Dose: 1 amp Atorvastatin Calcium (Lipitor -) 10 mg PO HS [facility] Last Admin: 02/03/18 22:15 Dose: 10 mg Carvedilol (Coreg -) 12.5 mg PO BID [facility] Last Admin: 02/04/18 10:34 Dose: 12.5 mg Diltiazem HCl 60 mg/ Diltiazem (HCl 30 mg) 90 mg PO Q6HPO [facility] Last Admin: 02/04/18 08:07 Dose: Not Given Docusate Sodium (Colace -) 300 mg PO HS [facility] Last Admin: 02/03/18 22:15 Dose: 300 mg Dorzolamide HCl (Trusopt 2%) 1 drop OS BID [facility] Last Admin: 02/04/18 10:34 Dose: 1 drp Ferrous Sulfate (Feosol -) 325 mg PO Q2D [facility] Last Admin: 02/04/18 10:34 Dose: 325 mg Vancomycin HCl 1,000 mg/ (Dextrose) 250 mls @ 166.667 mls/hr IVPB ONCE ONE; Protocol Stop: 02/04/18 12:33 Latanoprost (Xalatan 0.005% Eye Drops -) 1 drop OU HS [facility] Last Admin: 02/03/18 22:55 Dose: 1 drp Lisinopril (Prinivil) 2.5 mg PO DAILY [facility] Last Admin: 02/04/18 10:34 Dose: 2.5 mg Melatonin (Melatonin) 3 mg PO HS [facility] Last Admin: 02/03/18 22:15 Dose: 3 mg Ondansetron HCl (Zofran Injection) 4 mg IVPUSH Q8H PRN PRN Reason: NAUSEA Last Admin: 01/31/18 15:19 Dose: 4 mg Timolol Maleate (Timoptic 0.5%) 1 drop OU BID [facility] Last Admin: 02/04/18 10:34 Dose: 1 drop CBC, BMP 02/03/18 09:00 02/03/18 13:37 echo-- no vegetations Microbiology 02/03/18 06:45 Blood Culture - Preliminary Blood - Peripheral Venous NO GROWTH OBTAINED AFTER 24 HOURS, INCUBATION TO CONTINUE FOR 4 DAYS. 02/03/18 06:30 Blood Culture - Preliminary Blood - Peripheral Venous NO GROWTH OBTAINED AFTER 24 HOURS, INCUBATION TO CONTINUE FOR 4 DAYS. 01/31/18 23:20 Blood Culture - Preliminary Blood - Peripheral Venous NO GROWTH OBTAINED AFTER 72 HOURS, INCUBATION TO CONTINUE FOR 2 DAYS. 01/31/18 23:20 Blood Culture - Preliminary Blood - Peripheral Venous Staphylococcus Latex Coag Pos Vanco trough--- 9.5 Physical Examination Constitutional: Yes: No Distress, comfortable. Eyes: Yes: No icterus HENT: Yes: WNL Neck: Yes: Supple, Trachea Midline, Other (no JVD) Cardiovascular: Yes: Pulse Irregular. No: Regular Rate and Rhythm. Respiratory: Yes: Diminished at bases Gastrointestinal: Yes: Soft. non tender Edema: No Integumentary: Yes: Other (AV fistula) Neurological: Yes: Alert Assessment/Plan MRSA Bactremia vancomycin--- as per level--getting dose Again today Ventricle level to be checked before dialysis tomorrow Discussed with ID Follow-up cultures If cultures remain negative--we will consider discharge [facility] tomorrow patient will get vancomycin with dialysis Discussed with patient Patient in agreement discussed with nursing staff also Will follow Problem List - Problems (1) End stage renal disease Code(s): N18.6 - END STAGE RENAL DISEASE (2) Pneumonia Code(s): J18.9 - PNEUMONIA, UNSPECIFIED ORGANISM Qualifiers: Pneumonia type: due to unspecified organism Laterality: unspecified laterality Lung location: unspecified part of lung Qualified Code(s): J18.9 - Pneumonia, unspecified organism (3) Afib Code(s): I48.91 - UNSPECIFIED ATRIAL FIBRILLATION Qualifiers: Atrial fibrillation type: persistent Qualified Code(s): I48.1 - Persistent atrial fibrillation (4) ESRD (end stage renal disease) on dialysis Code(s): N18.6 - END STAGE RENAL DISEASE; Z99.2 - DEPENDENCE ON RENAL DIALYSIS (5) Glaucoma Code(s): H40.9 - UNSPECIFIED GLAUCOMA
--- NOTE | 2018-02-04 11:28 | PN ---
Progress Note, Physician History of Present Illness: no specific events patient was dialysed vanco levels noted - Current Medication List Current Medications: Active Medications Acetaminophen (Tylenol -) 650 mg PO Q4H PRN PRN Reason: HEADACHE Last Admin: 02/02/18 06:17 Dose: 650 mg Albuterol Sulfate (Ventolin 0.083% Nebulizer Soln -) 1 amp NEB Q4H PRN PRN Reason: SHORT OF BREATH/WHEEZING Last Admin: 01/31/18 20:00 Dose: 1 amp Atorvastatin Calcium (Lipitor -) 10 mg PO [facility] Last Admin: 02/03/18 22:15 Dose: 10 mg Carvedilol (Coreg -) 12.5 mg PO BID [facility] Last Admin: 02/04/18 10:34 Dose: 12.5 mg Diltiazem HCl 60 mg/ Diltiazem (HCl 30 mg) 90 mg PO Q6HPO [facility] Last Admin: 02/04/18 08:07 Dose: Not Given Docusate Sodium (Colace -) 300 mg PO [facility] Last Admin: 02/03/18 22:15 Dose: 300 mg Dorzolamide HCl (Trusopt 2%) 1 drop OS BID [facility] Last Admin: 02/04/18 10:34 Dose: 1 drp Ferrous Sulfate (Feosol -) 325 mg PO Q2D [facility] Last Admin: 02/04/18 10:34 Dose: 325 mg Vancomycin HCl 1,000 mg/ (Dextrose) 250 mls @ 166.667 mls/hr IVPB ONCE ONE; Protocol Stop: 02/04/18 12:33 Latanoprost (Xalatan 0.005% Eye Drops -) 1 drop OU [facility] Last Admin: 02/03/18 22:55 Dose: 1 drp Lisinopril (Prinivil) 2.5 mg PO DAILY [facility] Last Admin: 02/04/18 10:34 Dose: 2.5 mg Melatonin (Melatonin) 3 mg PO [facility] Last Admin: 02/03/18 22:15 Dose: 3 mg Ondansetron HCl (Zofran Injection) 4 mg IVPUSH Q8H PRN PRN Reason: NAUSEA Last Admin: 01/31/18 15:19 Dose: 4 mg Timolol Maleate (Timoptic 0.5%) 1 drop OU BID [facility] Last Admin: 02/04/18 10:34 Dose: 1 drop - Objective Vital Signs: Vital Signs Temperature 97.5 F L 02/04/18 10:03 Pulse Rate 108 H 02/04/18 10:03 Respiratory Rate 20 02/04/18 10:03 Blood Pressure 138/64 02/04/18 10:03 O2 Sat by Pulse Oximetry (%) 98 02/03/18 22:00 Constitutional: Yes: No Distress, Calm Cardiovascular: Yes: Regular Rate and Rhythm Respiratory: Yes: Regular, CTA Bilaterally Gastrointestinal: Yes: Normal Bowel Sounds, Soft Musculoskeletal: Yes: WNL Extremities: Yes: Other Neurological: Yes: Alert, Oriented Psychiatric: Yes: Alert, Oriented Labs: CBC, BMP 02/03/18 09:00 02/03/18 13:37 Assessment/Plan Problem List - Problems (1) End stage renal disease Code(s): N18.6 - END STAGE RENAL DISEASE (2) Pneumonia Code(s): J18.9 - PNEUMONIA, UNSPECIFIED ORGANISM Qualifiers: Pneumonia type: due to unspecified organism Laterality: unspecified laterality Lung location: unspecified part of lung Qualified Code(s): J18.9 - Pneumonia, unspecified organism (3) Afib Code(s): I48.91 - UNSPECIFIED ATRIAL FIBRILLATION Qualifiers: Atrial fibrillation type: persistent Qualified Code(s): I48.1 - Persistent atrial fibrillation (4) ESRD (end stage renal disease) on dialysis Code(s): N18.6 - END STAGE RENAL DISEASE; Z99.2 - DEPENDENCE ON RENAL DIALYSIS (5) Glaucoma Code(s): H40.9 - UNSPECIFIED GLAUCOMA Assessment/Plan vanco level noted will give 1 gm of vanco today repeat levels of vanco before dialysis then will adjust the dose rest as per the team and nephro spoke [facility] nephrology team
[2018-02-04] MEDS ORDERED: VANCOMYCIN 1 GM PREMIX - 1 GM/200 ML BAG IVPB ONE (12:00)
[2018-02-04] MEDS ORDERED: SODIUM CHLORIDE 250 ML IV PRN (16:48)
--- NOTE | 2018-02-04 16:48 | PN ---
Progress Note (short form) - Note Progress Note: Renal follow up for ESRD on HD Pt seen and examined during dialysis earlier today no acute complaints no sob, cp, abd pain, n/v/d Vital Signs Temperature 97.5 F L 02/04/18 10:03 Pulse Rate 108 H 02/04/18 10:03 Respiratory Rate 20 02/04/18 10:03 Blood Pressure 138/64 02/04/18 10:03 O2 Sat by Pulse Oximetry (%) 98 02/03/18 22:00 Intake & Output 02/01/18 02/02/18 02/03/18 02/04/18 23:59 23:59 23:59 23:59 Intake Total 530 1500 840 500 Output Total 0 0 0 Balance 530 1500 840 500 Weight 60.555 kg 60.555 kg 61.292 kg 57.606 kg NAD awake and alert RRR CTA soft NT/ND no LE edema CBC, BMP 02/03/18 09:00 02/03/18 13:37 Current Medications Acetaminophen (Tylenol -) 650 mg PO Q4H PRN PRN Reason: HEADACHE Last Admin: 02/02/18 06:17 Dose: 650 mg Albuterol Sulfate (Ventolin 0.083% Nebulizer Soln -) 1 amp NEB Q4H PRN PRN Reason: SHORT OF BREATH/WHEEZING Last Admin: 01/31/18 20:00 Dose: 1 amp Atorvastatin Calcium (Lipitor -) 10 mg PO HS [facility] Last Admin: 02/03/18 22:15 Dose: 10 mg Carvedilol (Coreg -) 12.5 mg PO BID [facility] Last Admin: 02/04/18 10:34 Dose: 12.5 mg Diltiazem HCl 60 mg/ Diltiazem (HCl 30 mg) 90 mg PO Q6HPO [facility] Last Admin: 02/04/18 13:10 Dose: 90 mg Docusate Sodium (Colace -) 300 mg PO HS [facility] Last Admin: 02/03/18 22:15 Dose: 300 mg Dorzolamide HCl (Trusopt 2%) 1 drop OS BID [facility] Last Admin: 02/04/18 10:34 Dose: 1 drp Ferrous Sulfate (Feosol -) 325 mg PO Q2D [facility] Last Admin: 02/04/18 10:34 Dose: 325 mg Latanoprost (Xalatan 0.005% Eye Drops -) 1 drop OU HS [facility] Last Admin: 02/03/18 22:55 Dose: 1 drp Lisinopril (Prinivil) 2.5 mg PO DAILY [facility] Last Admin: 02/04/18 10:34 Dose: 2.5 mg Melatonin (Melatonin) 3 mg PO HS [facility] Last Admin: 02/03/18 22:15 Dose: 3 mg Ondansetron HCl (Zofran Injection) 4 mg IVPUSH Q8H PRN PRN Reason: NAUSEA Last Admin: 01/31/18 15:19 Dose: 4 mg Timolol Maleate (Timoptic 0.5%) 1 drop OU BID [facility] Last Admin: 02/04/18 10:34 Dose: 1 drop 87 year old gentleman with Hx of ESRD on HD (TTS), Hypertension, Afib, CVA, Hx of GI bleed who presented with bleeding from AVF site. #ESRD on HD #bleeding from access site #Fever #N/V #MRSA bacteremia s/p dialysis yesterday, next tx tomorrow f/u repeat cultures vanco with Hd Id following Oh Shell DO
[2018-02-04] MEDS: DOCUSATE SODIUM 100 MG CAPSULE (FP) PO SCH (21:26)
[2018-02-04] MEDS: ATORVASTATIN CA 10 MG TABLET (FP) PO SCH (21:26)
[2018-02-04] MEDS: LATANOPROST 0.005% OPHTH SOLN 2.5ML BOTTLE OU SCH (21:32)
[2018-02-04] MEDS: MELATONIN 1 MG TABLET PO SCH (22:48)
[2018-02-05] MEDS ORDERED: dilTIAZem HCL 30 MG TABLET (FP) ONE ×3 (00:05→17:06)
[2018-02-05] MEDS ORDERED: dilTIAZem HCL 60 MG TABLET (FP) ONE ×3 (00:05→17:06)
[2018-02-05] MEDS: DILTIAZEM 60 MG, DILTIAZEM 30 MG PO SCH ×4 (00:16→17:12)
[2018-02-05] MEDS ORDERED: VANCOMYCIN 1 GM PREMIX - 1 GM/200 ML BAG IVPB ONE (06:00)
[2018-02-05] MEDS ORDERED: PT OWN MED DRAWER 7, Y5N ONE ×2 (06:56→09:51)
[2018-02-05] MEDS: CARVEDILOL 12.5 MG TABLET (FP) PO SCH (09:47)
[2018-02-05] MEDS: LISINOPRIL 5 MG TABLET (FP) PO SCH (09:48)
[2018-02-05] MEDS: TIMOLOL 0.5% OPHTHALMIC SOL 5 ML BOTTLE OU SCH (09:54)
[2018-02-05] MEDS: DORZOLAMIDE 2% HCL OPHTHALMIC SOLUTION 10 ML BOTTLE OS SCH (09:55)
--- NOTE | 2018-02-05 11:18 | PN ---
Progress Note (short form) - Note Progress Note: Renal follow up for ESRD on HD Pt seen and examined at the bedside no acute complaints no cp, abd pain, N/V/D no fever or chills Vital Signs Temperature 98.2 F 02/05/18 06:00 Pulse Rate 58 L 02/05/18 06:00 Respiratory Rate 02/05/18 06:00 Blood Pressure 120/50 02/05/18 06:00 O2 Sat by Pulse Oximetry (%) 98 02/04/18 21:00 Intake & Output 02/02/18 02/03/18 02/04/18 02/05/18 23:59 23:59 23:59 23:59 Intake Total 7023 542 8720 300 Output Total 0 0 Balance 3088 732 8860 300 Weight 60.555 kg 61.292 kg 57.606 kg 58.513 kg NAD awake and alert RRR CTA soft NT/ND no LE edema CBC, BMP 02/03/18 09:00 02/03/18 13:37 Current Medications Acetaminophen (Tylenol -) 650 mg PO Q4H PRN PRN Reason: HEADACHE Last Admin: 02/02/18 06:17 Dose: 650 mg Albuterol Sulfate (Ventolin 0.083% Nebulizer Soln -) 1 amp NEB Q4H PRN PRN Reason: SHORT OF BREATH/WHEEZING Last Admin: 01/31/18 20:00 Dose: 1 amp Atorvastatin Calcium (Lipitor -) 10 mg PO HS [facility] Last Admin: 02/04/18 21:26 Dose: 10 mg Carvedilol (Coreg -) 12.5 mg PO BID [facility] Last Admin: 02/05/18 09:47 Dose: Not Given Diltiazem HCl 60 mg/ Diltiazem (HCl 30 mg) 90 mg PO Q6HPO [facility] Last Admin: 02/05/18 05:43 Dose: 90 mg Docusate Sodium (Colace -) 300 mg PO HS [facility] Last Admin: 02/04/18 21:26 Dose: 300 mg Dorzolamide HCl (Trusopt 2%) 1 drop OS BID [facility] Last Admin: 02/05/18 09:55 Dose: 1 drp Ferrous Sulfate (Feosol -) 325 mg PO Q2D [facility] Last Admin: 02/04/18 10:34 Dose: 325 mg Sodium Chloride (Normal Saline -) 250 mls @ 3,000 mls/hr IV PRN PRN PRN Reason: Hypotension during Dialysis Stop: 02/05/18 16:48 Latanoprost (Xalatan 0.005% Eye Drops -) 1 drop OU HS [facility] Last Admin: 02/04/18 21:32 Dose: 1 drp Lisinopril (Prinivil) 2.5 mg PO DAILY [facility] Last Admin: 02/05/18 09:48 Dose: Not Given Melatonin (Melatonin) 3 mg PO HS [facility] Last Admin: 02/04/18 22:48 Dose: 3 mg Ondansetron HCl (Zofran Injection) 4 mg IVPUSH Q8H PRN PRN Reason: NAUSEA Last Admin: 01/31/18 15:19 Dose: 4 mg Timolol Maleate (Timoptic 0.5%) 1 drop OU BID [facility] Last Admin: 02/05/18 09:54 Dose: 1 drop 87 year old gentleman with Hx of ESRD on HD (TTS), Hypertension, Afib, CVA, Hx of GI bleed who presented with bleeding from AVF site. #ESRD on HD #bleeding from access site #Fever #N/V #MRSA bacteremia for dialysis today with UF as tolerated Vanco level high today, will hold dose repeat blood culture negative thus far Will need Vanco with dialysis for 3 additional weeks ID follow up Oh hSell DO
[2018-02-05] MEDS: guaiFENesin 200 MG/10 ML 10 ML UNIT-DOSE CUPS PO PRN ×2 (12:08→17:12)
--- NOTE | 2018-02-05 12:27 | DS ---
Physical Examination Vital Signs: Vital Signs Temperature 98.2 F 02/05/18 06:00 Pulse Rate 58 L 02/05/18 06:00 Respiratory Rate 18 02/05/18 06:00 Blood Pressure 120/50 02/05/18 06:00 O2 Sat by Pulse Oximetry (%) 98 02/04/18 21:00 Findings/Remarks: Awake and comfortable No issues afebrile Constitutional: Yes: No Distress, Calm Neck: Yes: Supple Cardiovascular: Yes: Regular Rate and Rhythm Respiratory: Yes: CTA Bilaterally Gastrointestinal: Yes: Soft Neurological: Yes: Alert Psychiatric: Yes: Alert Labs: CBC, BMP 02/03/18 09:00 02/03/18 13:37 Discharge Summary Reason For Visit: END STAGE RENAL FAILURE ON DIALYSIS, PNEUMONIA Current Active Problems End stage renal disease (Acute) Pneumonia (Acute) Hospital Course: admitted due to MRSA bacteremia Echo--- negative for vegetation treated with vancomycin ID followed Repeat cultures negative Now stable for discharge to snf on vancomycin--- to be given with dialysis //checking levels Discussed with renal also--- Dr. James Cole will follow in snf----for antibiotics with dialysis need another 3 weeks of antibiotics Medications reconciled Discharge to snf today Condition: Stable - Instructions Referrals: Eddi Jennings MD [Primary Care Provider] - Disposition: NURSING HOME FACILITY - Home Medications Comprehensive Discharge Medication List: Ambulatory Orders Acetaminophen [Tylenol] 325 mg PO Q6H PRN 10/28/15 Docusate Sodium [Colace -] 300 mg PO HS 10/28/15 Ferrous Sulfate [Feosol] 325 mg PO Q48H 10/28/15 Pantoprazole Sodium [Protonix] 40 mg PO DAILY 10/28/15 Carvedilol 12.5 mg PO Q12H 08/02/17 Diltiazem [Cardizem -] 90 mg PO Q6H 08/02/17 Dorzolamide HCl [Trusopt 2% -] 1 drop OS BID 08/02/17 Fluocinolone/Shower Cap [Fluocinolone 0.01% Scalp Oil] 3 drop AU BID PRN Guaifenesin [Brandy-Tussin] 200 mg PO QID PRN 08/02/17 Latanoprost 0.005% Eye Drops [Xalatan 0.005% Eye Drops -] 1 drop OU HS 08/02/17 Lisinopril [Zestril] 2.5 mg PO DAILY 08/02/17 Sevelamer Carbonate [Renvela Powder Packet -] 2.4 gm PO TIDWM 08/02/17 Timolol 0.5% [Timoptic 0.5%] 1 drop OU BID 08/02/17 Vitamin B Comp W-C [Nephro-Heather -] 0.8 mg PO HS 08/02/17 Albuterol 0.083% Nebulizer Kierra [Ventolin 0.083% Nebulizer Soln -] 1 neb NEB Q6H 01/31/18 Atorvastatin Ca [Lipitor] 40 mg PO HS 01/31/18 Melatonin 3 mg PO HS 01/31/18 Sevelamer Carbonate [Renvela -] 800 mg PO TID 01/31/18 Atorvastatin Ca [Lipitor] 10 mg PO HS tablet 02/05/18 Vanco with dialysis--per level -- x 6 weeks-- check level on next wednesday --
[2018-02-05 13:00] LABS: HEMATOCRIT 32.9 % (35.4-49); MCH 29.1 pg (25.7-33.7); MCHC 33.3 g/dl (32.0-35.9); MEAN CELL VOLUME 87.4 fl (80-96); MEAN PLT VOLUME 8.4 fl (7.5-11.1); PLATELET COUNT 170 K/MM3 (134-434); RBC 3.77 M/mm3 (4.00-5.60); RDW 18.3 % (11.9-15.9); WHITE BLOOD COUNT 7.9 K/mm3 (4.0-10.0)
--- NOTE | 2018-02-05 13:06 | PN ---
Progress Note, Physician History of Present Illness: Pt seen and examined. Events noted. Pt currently receiving HD. States he feels well in general. Remains afebrile. No shortness of breath. Given dose of Vancomycin earlier. - Current Medication List Current Medications: Active Medications Acetaminophen (Tylenol -) 650 mg PO Q4H PRN PRN Reason: HEADACHE Last Admin: 02/02/18 06:17 Dose: 650 mg Atorvastatin Calcium (Lipitor -) 10 mg PO HS [facility] Last Admin: 02/04/18 21:26 Dose: 10 mg Carvedilol (Coreg -) 12.5 mg PO BID [facility] Last Admin: 02/05/18 09:47 Dose: Not Given Diltiazem HCl 60 mg/ Diltiazem (HCl 30 mg) 90 mg PO Q6HPO [facility] Last Admin: 02/05/18 12:07 Dose: Not Given Docusate Sodium (Colace -) 300 mg PO HS [facility] Last Admin: 02/04/18 21:26 Dose: 300 mg Dorzolamide HCl (Trusopt 2%) 1 drop OS BID [facility] Last Admin: 02/05/18 09:55 Dose: 1 drp Ferrous Sulfate (Feosol -) 325 mg PO Q2D [facility] Last Admin: 02/04/18 10:34 Dose: 325 mg Guaifenesin (Robitussin -) 10 ml PO Q6H PRN PRN Reason: COUGH Last Admin: 02/05/18 12:08 Dose: 10 ml Sodium Chloride (Normal Saline -) 250 mls @ 3,000 mls/hr IV PRN PRN PRN Reason: Hypotension during Dialysis Stop: 02/05/18 16:48 Latanoprost (Xalatan 0.005% Eye Drops -) 1 drop OU HS [facility] Last Admin: 02/04/18 21:32 Dose: 1 drp Lisinopril (Prinivil) 2.5 mg PO DAILY [facility] Last Admin: 02/05/18 09:48 Dose: Not Given Melatonin (Melatonin) 3 mg PO HS [facility] Last Admin: 02/04/18 22:48 Dose: 3 mg Ondansetron HCl (Zofran Injection) 4 mg IVPUSH Q8H PRN PRN Reason: NAUSEA Last Admin: 01/31/18 15:19 Dose: 4 mg Timolol Maleate (Timoptic 0.5%) 1 drop OU BID [facility] Last Admin: 02/05/18 09:54 Dose: 1 drop - Objective Vital Signs: Vital Signs Temperature 98.3 F 02/05/18 12:20 Pulse Rate 54 L 02/05/18 12:35 Respiratory Rate 18 02/05/18 12:35 Blood Pressure 157/118 02/05/18 12:35 O2 Sat by Pulse Oximetry (%) 98 02/04/18 21:00 Constitutional: Yes: No Distress Cardiovascular: Yes: Regular Rate and Rhythm Respiratory: Yes: Regular Gastrointestinal: Yes: Normal Bowel Sounds, Soft Extremities: Yes: Other (LUE AVF) Neurological: Yes: Alert Labs: 02/05/18 : vancomycin level - 46 (post administration in am) Microbiology 02/03/18 06:45 Blood - Peripheral Venous Blood Culture - Preliminary NO GROWTH OBTAINED AFTER 48 HOURS, INCUBATION TO CONTINUE FOR 3 DAYS. 02/03/18 06:30 Blood - Peripheral Venous Blood Culture - Preliminary NO GROWTH OBTAINED AFTER 48 HOURS, INCUBATION TO CONTINUE FOR 3 DAYS. 01/31/18 23:20 Blood - Peripheral Venous Blood Culture - Preliminary NO GROWTH OBTAINED AFTER 96 HOURS, INCUBATION TO CONTINUE FOR 1 DAYS. 01/31/18 23:20 Blood - Peripheral Venous Blood Culture - Final S Aureus 01/31/18 04:35 Blood - Peripheral Venous Blood Culture - Final S Aureus 01/31/18 04:35 Blood - Peripheral Venous Blood Culture - Final S Aureus 01/31/18 15:15 Nares - Mrsa Screen - Left MRSA Screen - Final NO MRSA ISOLATED Problem List - Problems (1) End stage renal disease Code(s): N18.6 - END STAGE RENAL DISEASE (2) Pneumonia Code(s): J18.9 - PNEUMONIA, UNSPECIFIED ORGANISM Qualifiers: Pneumonia type: due to unspecified organism Laterality: unspecified laterality Lung location: unspecified part of lung Qualified Code(s): J18.9 - Pneumonia, unspecified organism (3) Afib Code(s): I48.91 - UNSPECIFIED ATRIAL FIBRILLATION Qualifiers: Atrial fibrillation type: persistent Qualified Code(s): I48.1 - Persistent atrial fibrillation (4) Anemia Code(s): D64.9 - ANEMIA, UNSPECIFIED Qualifiers: Anemia type: unspecified type Qualified Code(s): D64.9 - Anemia, unspecified (5) Hypercholesterolemia Code(s): E78.0 - PURE HYPERCHOLESTEROLEMIA * DO NOT USE * (6) Hypertension Code(s): I10 - ESSENTIAL (PRIMARY) HYPERTENSION Qualifiers: Hypertension type: essential hypertension Qualified Code(s): I10 - Essential (primary) hypertension (7) Weakness Code(s): R53.1 - WEAKNESS Assessment/Plan 87 y.o. male with PMH of ESRD on HD, CVA, HTN, HLD presenting with fever MRSA Bacteremia -- latest blood cultures negative -- Vancomycin level noted post am administration of antibiotic -- hold Vancomycin dose post HD today -- repeat Vancomycin level in am -- will need 3 more wks of Vancomycin post HD with monitoring of levels (target level 15-20) pt currently afebrile, without distress
[2018-02-05 13:31] LABS: ANION GAP 14 MMOL/L (8-16); BLOOD UREA NITROGEN 38 mg/dL (7-18); CALCIUM 7.8 mg/dL (8.5-10.1); CHLORIDE 96 mmol/L (98-107); CO2 23 mmol/L (21-32); GLUCOSE,RANDOM 167 mg/dL (74-106); PHOSPHOROUS 2.1 mg/dL (2.5-4.9); POTASSIUM 3.1 mmol/L (3.5-5.1); SODIUM 133 mmol/L (136-145)
[2018-02-05 13:51] LABS: CREATININE 8.3 mg/dL (0.7-1.3)
[2018-02-05 16:13] VITALS: BP 186/87; PULSE 74; TEMP 98.4
[2018-02-05] MEDS: ACETAMINOPHEN 325 MG TABLET (FP) PO PRN (17:12)
== END 2018-02-05 19:17 | DRG 193 ==
LOC: JER 03:33 → JERBED 06:37 → J6S 11:42
PROVIDERS: ADMIT Internal Medicine; ATTEND Internal Medicine
PROC: 5A1D70Z Performance of Urinary Filtration, Intermittent, Less than 6 Hours Per Day (ICD-10-PCS; principal; 2018-02-01)
DX: J18.9 Pneumonia, unspecified organism (principal); N18.6 End stage renal disease; T82.838A Hemorrhage due to vascular prosthetic devices, implants and grafts, initial encounter; I12.0 Hypertensive chronic kidney disease with stage 5 chronic kidney disease or end stage renal disease; R78.81 Bacteremia; I48.1 Persistent atrial fibrillation; J98.11 Atelectasis; J90 Pleural effusion, not elsewhere classified; Z99.2 Dependence on renal dialysis; E78.5 Hyperlipidemia, unspecified; Y83.8 Other surgical procedures as the cause of abnormal reaction of the patient, or of later complication, without mention of misadventure at the time of the procedure; H40.9 Unspecified glaucoma; B95.62 Methicillin resistant Staphylococcus aureus infection as the cause of diseases classified elsewhere; R11.2 Nausea with vomiting, unspecified; D64.9 Anemia, unspecified; R91.1 Solitary pulmonary nodule
CPT/HCPCS: 36415; 71045-TC-FY; 74176-TC; 80048; 80053; 82550; 82565; 83605; 83690; 84100; 84484; 84520; 85025; 85027; 86704; 86706; 86708; 86803; 87040; 87081; 87186; 87340; 93005; 93010; 93306-TC; 94640; 97116-GP; 97161-GP; 99283-25; G0480; J0131

== ENCOUNTER 2018-03-04 11:43 | Inpatient (IN) | payer OTHER ==
[2018-03-04 12:23] VITALS: BMI 44.1
--- NOTE | 2018-03-04 12:32 | PDOC ---
History of Present Illness - General Chief Complaint: Dialysis Shunt Problem Stated Complaint: Dialysis Shunt Problem Time Seen by Provider: 03/04/18 12:27 - History of Present Illness Initial Comments: 87 yo m with PMH of ESRD on hemodialysis (T, Th, S), Afib, CVA, HTN, HLD presents to the ED with the stated CC of my fistula in the Left arm isn't working and my left arm hurts. He reports that he was not able to receive dialysis yesterday because the port was clogged. He has pain in the arm and reports the pain radiation down the forearm as well. He denies any shoulder pain. He denies recent fevers, chills, or infections. He denies chest pain, SOB , or difficulty breathing. He denies urinary or bowel complaints. -Patient is unaware who his food service coordinator or vascular docs are. - per patient records he has seen Dr. Shell in the past. Social Hx: Denies smoking, drinking or illicit drug use. Pcp: Eddi Jennings Allergies: NKA, NKDA. Past History - Past Medical History Allergies/Adverse Reactions: Allergies Allergy/AdvReac Type Severity Reaction Status Date / Time No Known Allergies Allergy Verified 01/31/18 03:43 Home Medications: Ambulatory Orders Acetaminophen [Tylenol] 325 mg PO Q6H PRN 10/28/15 Docusate Sodium [Colace -] 300 mg PO HS 10/28/15 Ferrous Sulfate [Feosol] 325 mg PO Q48H 10/28/15 Pantoprazole Sodium [Protonix] 40 mg PO DAILY 10/28/15 Carvedilol 12.5 mg PO Q12H 08/02/17 Diltiazem [Cardizem -] 90 mg PO Q6H 08/02/17 Dorzolamide HCl [Trusopt 2% -] 1 drop OS BID 08/02/17 Fluocinolone/Shower Cap [Fluocinolone 0.01% Scalp Oil] 3 drop AU BID PRN Guaifenesin [Brandy-Tussin] 200 mg PO QID PRN 08/02/17 Latanoprost 0.005% Eye Drops [Xalatan 0.005% Eye Drops -] 1 drop OU HS 08/02/17 Lisinopril [Zestril] 2.5 mg PO DAILY 08/02/17 Sevelamer Carbonate [Renvela Powder Packet -] 2.4 gm PO TIDWM 08/02/17 Timolol 0.5% [Timoptic 0.5%] 1 drop OU BID 08/02/17 Vitamin B Comp W-C [Nephro-Heather -] 0.8 mg PO HS 08/02/17 Albuterol 0.083% Nebulizer Kierra [Ventolin 0.083% Nebulizer Soln -] 1 neb NEB Q6H 01/31/18 Atorvastatin Ca [Lipitor] 40 mg PO HS 01/31/18 Melatonin 3 mg PO HS 01/31/18 Sevelamer Carbonate [Renvela -] 800 mg PO TID 01/31/18 Atorvastatin Ca [Lipitor] 10 mg PO HS tablet 02/05/18 Anemia: No Asthma: No Cancer: No Cardiac Disorders: No CVA: No COPD: No CHF: No Dementia: Yes (alzheimers) Diabetes: No Dialysis: Yes GI Disorders: No Disorders: No HTN: Yes Hypercholesterolemia: Yes Liver Disease: No Seizures: No Thyroid Disease: No - Surgical History Neurologic Surgery: No - Immunization History Immunization Up to Date: No - Suicide/Smoking/Psychosocial Hx Smoking Status: Yes Smoking History: Unknown if ever smoked Years of Tobacco Use: 22 Have you smoked in the past 12 months: No Number of Cigarettes Smoked Daily: 0 If you are a former smoker, when did you quit?: Over 5 years ago Information on smoking cessation initiated: No Hx Alcohol Use: No Drug/Substance Use Hx: No Substance Use Type: None Hx Substance Use Treatment: No Review of Systems - Review of Systems Comments:: CONSTITUTIONAL: Absent: fever, chills, diaphoresis, generalized weakness, malaise, loss of appetite HEENT: Absent: rhinorrhea, nasal congestion, throat pain, throat swelling, difficulty swallowing, mouth swelling, ear pain, eye pain, visual Changes CARDIOVASCULAR: Absent: chest pain, syncope, palpitations, irregular heart rate, lightheadedness , peripheral edema RESPIRATORY: Absent: cough, shortness of breath, dyspnea with exertion, orthopnea, wheezing, stridor, hemoptysis GASTROINTESTINAL: Absent: abdominal pain, abdominal distension, nausea, vomiting, diarrhea, constipation, melena, hematochezia GENITOURINARY: Absent: dysuria, frequency, urgency, hesitancy, hematuria, flank pain, genital pain MUSCULOSKELETAL: Present: Myalgia Absent: arthralgia, joint swelling SKIN: Absent: rash, itching, pallor HEMATOLOGIC/IMMUNOLOGIC: Absent: easy bleeding, easy bruising, lymphadenopathy, frequent infections ENDOCRINE: Absent: unexplained weight gain, unexplained weight loss, heat intolerance, cold intolerance NEUROLOGIC: Absent: headache, focal weakness or paresthesias, dizziness, unsteady gait, seizure, mental status changes, bladder or bowel incontinence PSYCHIATRIC: Absent: anxiety, depression, suicidal or homicidal ideation, hallucinations. *Physical Exam - Vital Signs Last Vital Signs Temp Pulse Resp BP Pulse Ox 97.8 F 54 L 18 153/52 L 98 03/04/18 12:00 03/04/18 12:00 03/04/18 12:03/04/18 12:03/04/18 12:00 - Physical Exam Comments: Left Arm: The port appears swollen. No bruit can be auscultated. The arm appears to be neurovascularly intact. 2+ pulses. Equal sensation to R arm. Equal strength in both arms. GENERAL: Well developed, well nourished. Awake and alert. No acute distress. HEENT: Normocephalic, atraumatic. PERRLA, EOMI. No conjunctival pallor. Sclera are non- icteric. Moist mucous membranes. Oropharynx is clear. NECK: Supple. Full ROM. No JVD. No thyromegaly. No lymphadenopathy. CARDIOVASCULAR: Heladio rate and regular rhythm. No murmurs, rubs, or gallops. Distal pulses are 2 + and symmetric. PULMONARY: No evidence of respiratory distress. Lungs clear to auscultation bilaterally. No wheezing, rales or rhonchi. ABDOMINAL: Soft. Non-tender. Non-distended. No rebound or guarding. No organomegaly. Normoactive bowel sounds. MUSCULOSKELETAL Limitied range of motion at some joints. There are a few bony deformities. No CVA tenderness. EXTREMITIES: No cyanosis. No clubbing. No edema. No calf tenderness. SKIN: Warm and dry. Normal capillary refill. No rashes. No jaundice. NEUROLOGICAL: Alert, awake, appropriate. Cranial nerves 2-12 intact. No deficits to light touch in face, upper extremities and lower extremities. No motor deficits in the in face, upper extremities and lower extremities. Normal speech. Toes are down- going bilaterally. PSYCHIATRIC: Cooperative. Good eye contact. Appropriate mood and affect. 03/04/18 13:52 Heart Score/ECG Review - Age Age: >/= 65 - Risk Factors Risk Factors Heart Score: Yes Hx Hypercholesterolemia, Yes Hx Hypertension - Troponin Troponin: </= normal limit - ECG Intrepretation Rhythm: Irregularly Irregular - [place]: Normal - QRS Increased Voltage: Precordial Leads - ECG Impressions Normal ECG: No Bradycardia: Yes ED Treatment Course - LABORATORY CBC & Chemistry Diagram: 03/04/18 13:45 03/04/18 13:45 Medical Decision Making - Medical Decision Making 87 yo m with PMH of ESRD on hemodialysis (T, Th, S), Afib, CVA, HTN, HLD presents to the ED with a problem in the port in his Left arm. He could not receive his dialysis yesterday as a result. He is bradycardic - presumably because he is taking carvedilol, timolol, and cardizem but cannot be dialysed. Despite the bradycardic rate he appears to be asymptomatic. If he becomes somnolent will have low threshold to give glucagon and calcium. Plan: Cbc, cmp, type n screen, trop, ekg, L arm US, acetaminophen, consult vascular, re-assess. -consulting Dr. Dunbar in vascular. He agreed with plan. - patient will be NPO. Consulted Dr. Shell. He agrees with plan - informed he is a Dr. Santamaria patient. -Consulting Dr. Santamaria. Patient will be admitted for port repair. He will goto the OR in 1 hour. Patient is NPO. *DC/Admit/Observation/Transfer Diagnosis at time of Disposition: Arteriovenous shunt malfunction - Discharge Dispostion Condition at time of disposition: Guarded Decision to Admit order: Yes - Referrals - Patient Instructions - Post Discharge Activity
[2018-03-04] MEDS ORDERED: ACETAMINOPHEN 1000 MG/100 ML VIAL (NON FORMULARY) IVPB ONE (12:44)
--- NOTE | 2018-03-04 13:23 | PDOC ---
Attending Attestation - HPI HPI: The patient is an 87 year old male with PMHx of ESRD on hemodialysis (T, Th, S) , Afib, CVA, HTN, and HLD who presents to the ED with complaints of dialysis shunt problem. Patient states that the fistula in his left arm became clogged and he wasnt able to receive dialysis yesterday. He is also complaining of pain that radiates from the port down his left forearm. Social Hx: Denies smoking, drinking or illicit drug use. PCP: Eddi Jennings Software Build Engineer: Dr. Shell Vascular surgeon: Kendall Dunbar Allergies: NKDA. <Teresa Lua - Last Filed: 03/04/18 15:46> - Resident Resident Name: Nabil Barth - ED Attending Attestation I have performed the following: I have examined & evaluated the patient, The case was reviewed & discussed with the resident, I agree w/resident's findings & plan, Exceptions are as noted - Physicial Exam PE: 03/05/18 12:33 NAD, awake and alert RRR, No M/R CTA soft NT/ND no LE edmea left arm AVG no thrill or bruit - Medical Decision Making 03/04/18 13:59 EKG: Afib, rate of 42 bpm, axis nml, no st elevations or depressions, t waves upright 87 yo presenting to the ER with clotted graft Will be admitted for repair of fistula <Shaila Phelan - Last Filed: 03/05/18 12:35>
[2018-03-04 13:56] LABS: EOS % 2.7 % (0-4.5); HEMATOCRIT 31.8 % (35.4-49); HEMOGLOBIN 10.6 GM/dL (11.7-16.9); LYMPH % 11.6 % (8-40); MCHC 33.3 g/dl (32.0-35.9); MEAN PLT VOLUME 8.2 fl (7.5-11.1); MONO % 7.9 % (3.8-10.2); NEUT % 76.8 % (42.8-82.8); PLATELET COUNT 171 K/MM3 (134-434); RBC 3.65 M/mm3 (4.00-5.60); RDW 18.5 % (11.9-15.9); WHITE BLOOD COUNT 5.7 K/mm3 (4.0-10.0)
[2018-03-04] MEDS ORDERED: ACETAMINOPHEN INJECTION 100 ML IVPB ONE (13:57)
[2018-03-04 14:25] LABS: INR 1.05 (0.83-1.09); PROTHROMBIN TIME (PATIENT) 12.4 SEC (9.7-13.0)
[2018-03-04 14:28] LABS: ACTIVATED PTT 33.7 SECONDS (25.2-36.5)
[2018-03-04 14:52] LABS: ALBUMIN 2.9 g/dl (3.4-5.0); ALK PHOS 220 U/L (45-117); ANION GAP 10 MMOL/L (8-16); BILIRUBIN,TOTAL 0.5 mg/dL (0.2-1); BLOOD UREA NITROGEN 51 mg/dL (7-18); CALCIUM 8.2 mg/dL (8.5-10.1); CHLORIDE 94 mmol/L (98-107); CO2 26 mmol/L (21-32); GLUCOSE,RANDOM 99 mg/dL (74-106); POTASSIUM 4.6 mmol/L (3.5-5.1); SGOT/AST 20 U/L (15-37); SGPT/ALT 23 U/L (13-61); SODIUM 130 mmol/L (136-145); TOT PROT 7.4 g/dl (6.4-8.2)
[2018-03-04 14:53] LABS: CREATININE 11.1 mg/dL (0.55-1.3)
--- NOTE | 2018-03-04 15:45 | CONSULT ---
Consult - text type - Consultation Consultation Note: Renal consult for ESRD on HD with clotted AVG This is a 87 year old AA gentleman with Hx of ESRD on HD (TTS at [facility]), Hypertension, CVA, Hx of GIB who presented with a non-working AVG. Pt last had dialysis on Wednesday. No sob, cp, abd pain, N/V/D. Denies any swelling of arm or prolonged bleeding from AVG site. PMHx: as above Allergies: NKDA Family Hx: [place] Social Hx: No T/A/D ROS: as per HPI, all other pertinent ros negative Home Medications Medication Instructions Recorded Acetaminophen [Tylenol] 325 mg PO Q6H PRN 10/28/15 Docusate Sodium [Colace -] 300 mg PO HS 10/28/15 Ferrous Sulfate [Feosol] 325 mg PO Q48H 10/28/15 Pantoprazole Sodium [Protonix] 40 mg PO DAILY 10/28/15 Carvedilol 12.5 mg PO Q12H 08/02/17 Diltiazem [Cardizem -] 90 mg PO Q6H 08/02/17 Dorzolamide HCl [Trusopt 2% -] 1 drop OS BID 08/02/17 Fluocinolone/Shower Cap 3 drop AU BID PRN 08/02/17 [Fluocinolone 0.01% Scalp Oil] Guaifenesin [Brandy-Tussin] 200 mg PO QID PRN 08/02/17 Latanoprost 0.005% Eye Drops 1 drop OU HS 08/02/17 [Xalatan 0.005% Eye Drops -] Lisinopril [Zestril] 2.5 mg PO DAILY 08/02/17 Sevelamer Carbonate [Renvela 2.4 gm PO TIDWM 08/02/17 Powder Packet -] Timolol 0.5% [Timoptic 0.5%] 1 drop OU BID 08/02/17 Vitamin B Comp W-C [Nephro-Heather -] 0.8 mg PO HS 08/02/17 Albuterol 0.083% Nebulizer Kierra 1 neb NEB Q6H 01/31/18 [Ventolin 0.083% Nebulizer Soln -] Atorvastatin Ca [Lipitor] 40 mg PO HS 01/31/18 Melatonin 3 mg PO HS 01/31/18 Sevelamer Carbonate [Renvela -] 800 mg PO TID 01/31/18 Atorvastatin Ca [Lipitor] 10 mg PO HS tablet 02/05/18 Vital Signs Temperature 97.8 F 03/04/18 12:00 Pulse Rate 54 L 03/04/18 12:00 Respiratory Rate 18 03/04/18 12:00 Blood Pressure 153/52 L 03/04/18 12:00 O2 Sat by Pulse Oximetry (%) 98 03/04/18 12:00 NAD, awake and alert RRR, No M/R CTA, no rales or wheeze soft NT/ND no LE edmea left arm AVG no thrill or bruit CBC, BMP 03/04/18 13:45 03/04/18 13:45 87 year old AA gentleman with Hx of ESRD on HD (TTS at [facility]), Hypertension, CVA, Hx of GIB who presented with a non-working AVG. #ESRD on HD #Clotted AVG #Hypertension #CKD related Anemia #Hyponatremia no acute need for dialysis today (no hyperkalemia, acidosis, or uremia) for de-clott of AVG today in OR BP acceptable Hgb stable Low sodium related to volume retention in ESRD pt, no acute intervention needed stable for discharge s/p vascular intervention Thank you Oh Shell DO
--- NOTE | 2018-03-04 17:39 | CONSULT ---
Consult - History of Present Illness History of Present Illness: 87 year old man with ESRD on HD with left arm AV graft. Last dialysis Wednesday. Graft clotted yesterday. 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 History of Recent Travel: No Home Medications - Allergies Allergies/Adverse Reactions: Allergies Allergy/AdvReac Type Severity Reaction Status Date / Time No Known Allergies Allergy Verified 01/31/18 03:43 - Home Medications Home Medications: Ambulatory Orders Acetaminophen [Tylenol] 325 mg PO Q6H PRN 10/28/15 Docusate Sodium [Colace -] 300 mg PO HS 10/28/15 Ferrous Sulfate [Feosol] 325 mg PO Q48H 10/28/15 Pantoprazole Sodium [Protonix] 40 mg PO DAILY 10/28/15 Carvedilol 12.5 mg PO Q12H 08/02/17 Diltiazem [Cardizem -] 90 mg PO Q6H 08/02/17 Dorzolamide HCl [Trusopt 2% -] 1 drop OS BID 08/02/17 Fluocinolone/Shower Cap [Fluocinolone 0.01% Scalp Oil] 3 drop AU BID PRN Guaifenesin [Brandy-Tussin] 200 mg PO QID PRN 08/02/17 Latanoprost 0.005% Eye Drops [Xalatan 0.005% Eye Drops -] 1 drop OU HS 08/02/17 Lisinopril [Zestril] 2.5 mg PO DAILY 08/02/17 Sevelamer Carbonate [Renvela Powder Packet -] 2.4 gm PO TIDWM 08/02/17 Timolol 0.5% [Timoptic 0.5%] 1 drop OU BID 08/02/17 Vitamin B Comp W-C [Nephro-Heather -] 0.8 mg PO HS 08/02/17 Albuterol 0.083% Nebulizer Kierra [Ventolin 0.083% Nebulizer Soln -] 1 neb NEB Q6H 01/31/18 Atorvastatin Ca [Lipitor] 40 mg PO HS 01/31/18 Melatonin 3 mg PO HS 01/31/18 Sevelamer Carbonate [Renvela -] 800 mg PO TID 01/31/18 Atorvastatin Ca [Lipitor] 10 mg PO HS tablet 02/05/18 Family Disease History - Family Disease History Family Disease History: Other: Father (: unclear cause), Mother (: 50: complications from HTN), Brother (6, 1 alive: Does not know the cause of their deaths), Sister (6, : Does not know the cause of ), Daughter (2, healthy) Physical Exam Vital Signs: Vital Signs Temperature 97.8 F 03/04/18 12:00 Pulse Rate 54 L 03/04/18 12:00 Respiratory Rate 18 03/04/18 12:00 Blood Pressure 153/52 L 03/04/18 12:00 O2 Sat by Pulse Oximetry (%) 98 03/04/18 12:00 Extremities: Yes: Other (Left upper arm hard graft with no pulse. hand warm) Labs: CBC, BMP 03/04/18 13:45 03/04/18 13:45 Problem List - Problems (1) Clotted renal dialysis arteriovenous graft Assessment/Plan: Thrombised access. Plan thrombectomy and venogram Code(s): T82.868A - THROMBOSIS DUE TO VASCULAR PROSTH DEV/GRFT, INIT Qualifiers: Encounter type: initial encounter Qualified Code(s): T82.868A - Thrombosis due to vascular prosthetic devices, implants and grafts, initial encounter
[2018-03-04] MEDS ORDERED: HEPARIN NA (PORCINE) 5,000 UNITS/ML 1ML VIAL ONE ×2 (17:44→18:35)
[2018-03-04] MEDS ORDERED: LIDOCAINE HCL 2% (20ML MULTI-DOSE VIAL) NR ONE (17:45)
[2018-03-04] MEDS ORDERED: ONDANSETRON 4 MG/2 ML VIAL IVPUSH PRN (17:51)
[2018-03-04] MEDS ORDERED: PROMETHAZINE HCL 25 MG/1 ML VIAL IVPUSH PRN (17:51)
[2018-03-04] MEDS ORDERED: PROPOFOL 20 ML ONE (18:00)
[2018-03-04] MEDS ORDERED: SODIUM CHLORIDE 1,000 ML IV SCH (18:00)
[2018-03-04] MEDS ORDERED: MIDAZOLAM HCL 2 MG/2 ML SINGLE DOSE VIAL ONE ×2 (18:00→18:59)
[2018-03-04] MEDS ORDERED: LIDOCAINE HCL/PF 2% SDV 5ML VIAL ONE (18:20)
[2018-03-04] MEDS ORDERED: ceFAZolin SODIUM 1 GM VIAL ONE (18:20)
[2018-03-04] MEDS ORDERED: GLYCOPYRROLATE 0.2 MG/1 ML VIAL ONE (18:28)
[2018-03-04] MEDS ORDERED: POVIDONE-IODINE OINTMENT 10% - 28.4 GM TUBE ONE (19:08)
[2018-03-04] MEDS ORDERED: PROTAMINE SULFATE 50 MG/5 ML VIAL ONE (19:15)
--- NOTE | 2018-03-04 19:57 | OP ---
Operative Note - Note: Operative Date: 03/04/18 Pre-Operative Diagnosis: ESRD, Thrombosed AV graft Operation: Open thrombectomy AV graft, balloon angioplasty graft. Placement Permacath Findings: Left arm AV graft completely lined with stents. Graft thrombosed. Venous anastomosis patent with intragraft narrowing 60% Implants: 28 cm Permacath Post-Operative Diagnosis: Same as Pre-op Surgeon: Krzysztof Diana Anesthesiologist/RN HEMODIALYSIS CHARGE: Dipak Chow Anesthesia: Fractional Estimated Blood Loss (mls): 100
[2018-03-04] MEDS ORDERED: ACETAMINOPHEN 325 MG TABLET (FP) PO PRN ×2 (19:58→20:10)
[2018-03-04] MEDS ORDERED: oxyCODONE HCL 5 MG TABLET PO PRN (20:10)
[2018-03-04] MEDS ORDERED: SODIUM CHLORIDE 250 ML IV PRN (20:27)
[2018-03-04] MEDS ORDERED: ATORVASTATIN CA 10 MG TABLET (FP) PO SCH (22:00)
[2018-03-04] MEDS ORDERED: LATANOPROST 0.005% OPHTH SOLN 2.5ML BOTTLE OU SCH (22:00)
[2018-03-04] MEDS ORDERED: DOCUSATE SODIUM 100 MG CAPSULE (FP) PO SCH (22:00)
[2018-03-04] MEDS: CARVEDILOL 12.5 MG TABLET (FP) PO SCH (22:49)
[2018-03-04] MEDS: TIMOLOL 0.5% OPHTHALMIC SOL 5 ML BOTTLE OU SCH (23:25)
[2018-03-04] MEDS: DORZOLAMIDE 2% HCL OPHTHALMIC SOLUTION 10 ML BOTTLE OS SCH (23:25)
[2018-03-05] MEDS: dilTIAZem HCL 30 MG TABLET (FP) PO SCH ×4 (00:33→17:08)
[2018-03-05] MEDS ORDERED: PT OWN MED DRAWER 7, Y5N ONE ×3 (02:12→16:57)
[2018-03-05] MEDS: ALBUTEROL SO4 0.083% IH SOL 2.5 MG/3 ML VIAL.NEB. NEB SCH ×3 (08:00→16:26)
[2018-03-05] MEDS ORDERED: PANTOPRAZOLE 40 MG TABLET (FP) PO SCH (10:00)
[2018-03-05] MEDS ORDERED: LISINOPRIL 5 MG TABLET (FP) PO SCH (10:00)
--- NOTE | 2018-03-05 10:32 | PN ---
Progress Note (short form) - Note Progress Note: Renal follow up for ESRD on Hd Pt seen and examined at the bedside s/p attempted declott of AVG yesterday, unsucessful catheter was placed no acute complaints today Vital Signs Temperature 97.6 F 03/05/18 06:00 Pulse Rate 61 03/05/18 06:00 Respiratory Rate 17 03/05/18 06:00 Blood Pressure 159/57 L 03/05/18 06:00 O2 Sat by Pulse Oximetry (%) 97 03/04/18 21:50 Intake & Output 03/02/18 03/03/18 03/04/18 03/05/18 23:59 23:59 23:59 23:59 Intake Total 500 1000 Output Total 100 Balance 400 1000 Weight 127.998 kg NAD Neck supple Left IJ tunneled catheter no LE edema CBC, BMP 03/04/18 13:45 03/04/18 13:45 87 year old AA gentleman with Hx of ESRD on HD (TTS at [facility]), Hypertension, CVA, Hx of GIB who presented with a non-working AVG. #ESRD on HD #Clotted AVG #Hypertension #CKD related Anemia #Hyponatremia for HD today via catheter will need new access placement can be done as outpatient can be discharged home following dialysis Thank you Oh Shell DO
[2018-03-05] MEDS: SEVELAMER CARBONATE 800 MG TAB (FP) PO SCH ×3 (10:33→17:08)
--- NOTE | 2018-03-05 10:43 | PN ---
Progress Note (short form) - Note Progress Note: Feels weak Left arm incision dry. No bruit Will have HD today with new Permacath New chronic access to be scheduled as out patient. OK to return to SNF today Problem List - Problems (1) Clotted renal dialysis arteriovenous graft Code(s): T82.868A - THROMBOSIS DUE TO VASCULAR PROSTH DEV/GRFT, INIT Qualifiers: Encounter type: initial encounter Qualified Code(s): T82.868A - Thrombosis due to vascular prosthetic devices, implants and grafts, initial encounter
--- NOTE | 2018-03-05 12:17 | HP ---
Admitting History and Physical - Primary Care Physician PCP: Eddi Jennings - Admission Chief Complaint: clotted av fistula History of Present Illness: This is a 87 year old AA gentleman with Hx of ESRD on HD (TTS at [facility]), Hypertension, CVA, Hx of GIB who presented with a non-working AVG. Pt last had dialysis on Wednesday Unsuccessful attempt at declogging-- new permacath placed pt being dializied now new permanant access to be rescheduled as out pt. case was discussed with er physician/ renal yesterday pt seen / examined today in dialysis comfortable denies pain History Source: Patient, Medical Record - Past Medical History NON CDL DRIVER: Yes: Dementia Cardiovascular: Yes: AFIB, HTN, Hyperlipdemia Renal/: Yes: Hemodialysis (CKD) Heme/Onc: Yes: Anemia - Past Surgical History Past Surgical History: Yes: Joint Replacement - Smoking History Smoking history: Former smoker Have you smoked in the past 12 months: No Aproximately how many cigarettes per day: 0 If you are a former smoker, when did you quit?: Over 5 years ago - Alcohol/Substance Use Hx Alcohol Use: No History of Substance Use: reports: None - Social History ADL: Support Services 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 History of Recent Travel: No Home Medications - Allergies Allergies/Adverse Reactions: Allergies Allergy/AdvReac Type Severity Reaction Status Date / Time No Known Allergies Allergy Verified 01/31/18 03:43 - Home Medications Home Medications: Ambulatory Orders Acetaminophen [Tylenol] 325 mg PO Q6H PRN 10/28/15 Docusate Sodium [Colace -] 300 mg PO HS 10/28/15 Ferrous Sulfate [Feosol] 325 mg PO Q48H 10/28/15 Pantoprazole Sodium [Protonix] 40 mg PO DAILY 10/28/15 Carvedilol 12.5 mg PO Q12H 08/02/17 Diltiazem [Cardizem -] 90 mg PO Q6H 08/02/17 Dorzolamide HCl [Trusopt 2% -] 1 drop OS BID 08/02/17 Fluocinolone/Shower Cap [Fluocinolone 0.01% Scalp Oil] 3 drop AU BID PRN Guaifenesin [Brandy-Tussin] 200 mg PO QID PRN 08/02/17 Latanoprost 0.005% Eye Drops [Xalatan 0.005% Eye Drops -] 1 drop OU HS 08/02/17 Lisinopril [Zestril] 2.5 mg PO DAILY 08/02/17 Sevelamer Carbonate [Renvela Powder Packet -] 2.4 gm PO TIDWM 08/02/17 Timolol 0.5% [Timoptic 0.5%] 1 drop OU BID 08/02/17 Vitamin B Comp W-C [Nephro-Heather -] 0.8 mg PO HS 08/02/17 Albuterol 0.083% Nebulizer Kierra [Ventolin 0.083% Nebulizer Soln -] 1 neb NEB Q6H 01/31/18 Atorvastatin Ca [Lipitor] 40 mg PO HS 01/31/18 Melatonin 3 mg PO HS 01/31/18 Sevelamer Carbonate [Renvela -] 800 mg PO TID 01/31/18 Atorvastatin Ca [Lipitor] 10 mg PO HS tablet 02/05/18 Family Disease History - Family Disease History Family Disease History: Other: Father (: unclear cause), Mother (: 50: complications from HTN), Brother (6, 1 alive: Does not know the cause of their deaths), Sister (6, : Does not know the cause of ), Daughter (2, healthy) Review of Systems - Review of Systems Constitutional: reports: No Symptoms Eyes: reports: No Symptoms Neck: reports: No Symptoms Cardiovascular: reports: No Symptoms Respiratory: reports: No Symptoms Gastrointestinal: reports: No Symptoms Psychiatric: reports: No Symptoms Physical Examination Vital Signs: Vital Signs Temperature 97.8 F 03/05/18 11:25 Pulse Rate 58 L 03/05/18 12:00 Respiratory Rate 03/05/18 12:00 Blood Pressure 114/53 L 03/05/18 12:00 O2 Sat by Pulse Oximetry (%) 97 03/04/18 21:50 Constitutional: Yes: No Distress, Calm Eyes: Yes: Conjunctiva Clear Neck: Yes: Supple Cardiovascular: Yes: Pulse Irregular. No: Regular Rate and Rhythm Respiratory: Yes: Diminished Gastrointestinal: Yes: Soft Edema: No Neurological: Yes: Alert Psychiatric: Yes: Alert Labs: CBC, BMP 03/04/18 13:45 03/04/18 13:45 Imaging - Results Chest X-ray: Report Reviewed Problem List - Problems (1) Clotted renal dialysis arteriovenous graft Code(s): T82.868A - THROMBOSIS DUE TO VASCULAR PROSTH DEV/GRFT, INIT Qualifiers: Encounter type: initial encounter Qualified Code(s): T82.868A - Thrombosis due to vascular prosthetic devices, implants and grafts, initial encounter (2) Afib Code(s): I48.91 - UNSPECIFIED ATRIAL FIBRILLATION Qualifiers: Atrial fibrillation type: persistent Qualified Code(s): I48.1 - Persistent atrial fibrillation (3) ESRD (end stage renal disease) on dialysis Code(s): N18.6 - END STAGE RENAL DISEASE; Z99.2 - DEPENDENCE ON RENAL DIALYSIS (4) Hyponatremia Code(s): E87.1 - HYPO-OSMOLALITY AND HYPONATREMIA Assessment/Plan stable d/c to correction after dialysis permanent access to be scheduled as out pt discussed with nursing staff also
--- NOTE | 2018-03-05 12:25 | DS ---
Physical Examination Vital Signs: Vital Signs Temperature 97.8 F 03/05/18 11:25 Pulse Rate 58 L 03/05/18 12:00 Respiratory Rate 18 03/05/18 12:00 Blood Pressure 114/53 L 03/05/18 12:00 O2 Sat by Pulse Oximetry (%) 97 03/04/18 21:50 Findings/Remarks: see h/p Labs: CBC, BMP 03/04/18 13:45 03/04/18 13:45 Discharge Summary Reason For Visit: MALFUNCTION OF ARTERIOVENOU SHUNT Current Active Problems Arteriovenous shunt malfunction (Acute) Clotted renal dialysis arteriovenous graft (Acute) Hospital Course: permacath placed clotted avf-- unsuccessful f/u with Dr. Bobo as out pt - for new permanent access. Condition: Stable - Instructions Referrals: Eddi Jennings MD [Primary Care Provider] - Disposition: NURSING HOME FACILITY - Home Medications Comprehensive Discharge Medication List: Ambulatory Orders Acetaminophen [Tylenol] 325 mg PO Q6H PRN 10/28/15 Docusate Sodium [Colace -] 300 mg PO HS 10/28/15 Ferrous Sulfate [Feosol] 325 mg PO Q48H 10/28/15 Pantoprazole Sodium [Protonix] 40 mg PO DAILY 10/28/15 Carvedilol 12.5 mg PO Q12H 08/02/17 Diltiazem [Cardizem -] 90 mg PO Q6H 08/02/17 Dorzolamide HCl [Trusopt 2% -] 1 drop OS BID 08/02/17 Fluocinolone/Shower Cap [Fluocinolone 0.01% Scalp Oil] 3 drop AU BID PRN Guaifenesin [Brandy-Tussin] 200 mg PO QID PRN 08/02/17 Latanoprost 0.005% Eye Drops [Xalatan 0.005% Eye Drops -] 1 drop OU HS 08/02/17 Lisinopril [Zestril] 2.5 mg PO DAILY 08/02/17 Sevelamer Carbonate [Renvela Powder Packet -] 2.4 gm PO TIDWM 08/02/17 Timolol 0.5% [Timoptic 0.5%] 1 drop OU BID 08/02/17 Vitamin B Comp W-C [Nephro-Heather -] 0.8 mg PO HS 08/02/17 Albuterol 0.083% Nebulizer Kierra [Ventolin 0.083% Nebulizer Soln -] 1 neb NEB Q6H 01/31/18 Atorvastatin Ca [Lipitor] 40 mg PO HS 01/31/18 Melatonin 3 mg PO HS 01/31/18 Sevelamer Carbonate [Renvela -] 800 mg PO TID 01/31/18 Diltiazem [Cardizem -] 90 mg PO Q6HPO tablet 03/05/18 oxyCODONE HCL [Roxicodone -] 5 mg PO Q4H PRN #30 tablet MDD 3 03/05/18
[2018-03-05] MEDS: DORZOLAMIDE 2% HCL OPHTHALMIC SOLUTION 10 ML BOTTLE OS SCH (15:35)
[2018-03-05] MEDS: TIMOLOL 0.5% OPHTHALMIC SOL 5 ML BOTTLE OU SCH (15:35)
[2018-03-05] MEDS: CARVEDILOL 12.5 MG TABLET (FP) PO SCH (15:35)
[2018-03-05 17:37] VITALS: BP 165/68; PULSE 63; TEMP 98
--- NOTE | 2018-03-05 23:17 | EKG ---
Test Reason : Blood Pressure : / mmHG Vent. Rate : 042 BPM Atrial Rate : 046 BPM P-R Int : 000 ms QRS Dur : 102 ms QT Int : 518 ms P-R-T Axes : 000 049 050 degrees QTc Int : 432 ms ATRIAL FLUTTER WITH SLOW VENTRICULAR RESPONSE WITH PREMATURE VENTRICULAR OR ABERRANTLY CONDUCTED COMPLEXES VOLTAGE CRITERIA FOR LEFT VENTRICULAR HYPERTROPHY ABNORMAL ECG Confirmed by ANICETO GORE MD ([id number]) on 03/05/2018 11:17:08 PM Referred By: Confirmed By:ANICETO GORE MD
--- NOTE | 2018-03-07 21:35 | OP ---
DATE OF OPERATION: 03/04/2018 SURGEON: Krzysztof Nugent MD PROCEDURE: Open thrombectomy of arteriovenous graft with balloon angioplasty of the graft. Placement of PermCath. PREOPERATIVE DIAGNOSIS: End-stage renal disease with thrombosed arteriovenous graft. POSTOPERATIVE DIAGNOSIS: End-stage renal disease with thrombosed arteriovenous graft. ANESTHESIA: Fractional. ANESTHESIOLOGIST: Aditya Chow MD OPERATIVE FINDINGS: A left upper arm AV graft was present without pulse. X-ray evaluation revealed the entire length of the graft to be full of stents except for a short distance at the distal end in a 1-cm area between stents in the mid-portion. At this site, there was stenosis of approximately 70%. OPERATIVE PROCEDURE: Following routine patient identification with side and site verification, intravenous sedation was established. The left arm and chest were prepped with ChloraPrep. Timeout was performed. Lidocaine was infiltrated in the skin over the distal aspect of the graft where no stents were seen on x-ray. Skin incision was made and carried down to the subcutaneous tissues using cautery for hemostasis. The graft was mobilized from the surrounding tissues and secured with vessel loops. The graft was then incised with a transverse incision. Number 4 Kishan catheters were passed proximally with removal of thrombus from the graft. After several passes, it was possible to advance the catheter into the axillary vein and then with return of more thrombus. This was continued until no further thrombus was retrieved and there was venous backbleeding. A sheath was placed into the graft, and angiography performed with dilute contrast. This revealed a patent venous anastomosis with multiple stents within the graft and an area of stenosis in the mid-portion of the graft. This area was then balloon dilated with a 7-mm balloon. The graft was filled with heparin solution and was occluded with a vascular clamp. Thrombectomy of the arterial inflow was then performed with removal of thrombus and caodaism of arterial bleeding. The graft was filled with heparin and was occluded. The incision in the graft was then closed with running sutures of 6-0 Prolene. After completing the closure, the graft was released. There was bleeding seen coming from the posterior aspect of the graft. After re-occlusion, there were several small tears in the posterior wall of the graft which were repaired with Prolene sutures. The graft was then re-opened, but only a weak pulse was present. Due to the severe damage to the graft and the presence of multiple stents, it was felt that this graft would not remain patent and would need to be replaced. Therefore, a decision was made to place a PermCath. The incision over the graft was closed with interrupted suture of 3-0 Vicryl and skin clemente. A sterile dressing was applied. The left neck was then evaluated with ultrasound, and a patent internal jugular vein was identified. Lidocaine was infiltrated in the skin lateral to the vein, and the vein was cannulated with a micropuncture needle. A wire was passed proximally. The needle was exchanged for a 5-Maltese catheter, and the wire was then exchanged for a ZIPwire which was advanced into the right atrium and to the vena cava. Additional Xylocaine was infiltrated on the left chest wall and a stab wound made. A 32-cm PermCath was passed with a tunneler from chest to neck. The tract around the wire was dilated, and then, the introducer was placed into the superior vena cava. The wire and the dilator were removed. The tip of the PermCath was advanced through the introducer and positioned in the right atrium. The introducer was peeled away. Each lumen of the PermCath was aspirated for blood and flushed with saline and heparin solution. The neck wound was closed with 3-0 Vicryl, and the catheter was sutured to the skin at the exit site with 3-0 nylon. Sterile dressings were applied, and the patient was taken to the recovery room in stable condition. KRZYSZTOF NUGENT M.D. [id number]
[2018-03-09 06:11] LABS: HBSAG SCREEN Negative (Negative); HEP A AB, IGM Negative (Negative); HEP B CORE AB, TOT Negative (Negative)
== END 2018-03-05 18:32 | DRG 252 ==
LOC: JER 11:43 → JERBED 14:40 → J4S 21:49
PROVIDERS: ADMIT Internal Medicine; ATTEND Internal Medicine
PROC: 05HN33Z Insertion of Infusion Device into Left Internal Jugular Vein, Percutaneous Approach (ICD-10-PCS; 2018-03-04)
PROC: B544ZZA Ultrasonography of Left Jugular Veins, Guidance (ICD-10-PCS; 2018-03-04)
PROC: 05C80ZZ Extirpation of Matter from Left Axillary Vein, Open Approach (ICD-10-PCS; principal; 2018-03-04 16:30)
PROC: 05780ZZ Dilation of Left Axillary Vein, Open Approach (ICD-10-PCS; 2018-03-04 16:30)
PROC: 3E03017 Introduction of Other Thrombolytic into Peripheral Vein, Open Approach (ICD-10-PCS; 2018-03-04 16:30)
PROC: 5A1D70Z Performance of Urinary Filtration, Intermittent, Less than 6 Hours Per Day (ICD-10-PCS; 2018-03-05)
DX: T82.868A Thrombosis due to vascular prosthetic devices, implants and grafts, initial encounter (principal); N18.6 End stage renal disease; I12.0 Hypertensive chronic kidney disease with stage 5 chronic kidney disease or end stage renal disease; E87.1 Hypo-osmolality and hyponatremia; I48.1 Persistent atrial fibrillation; Y83.8 Other surgical procedures as the cause of abnormal reaction of the patient, or of later complication, without mention of misadventure at the time of the procedure; I10 Essential (primary) hypertension; E78.5 Hyperlipidemia, unspecified; D63.8 Anemia in other chronic diseases classified elsewhere; F03.90 Unspecified dementia, unspecified severity, without behavioral disturbance, psychotic disturbance, mood disturbance, and anxiety; Z87.891 Personal history of nicotine dependence; Z99.2 Dependence on renal dialysis; Z86.73 Personal history of transient ischemic attack (TIA), and cerebral infarction without residual deficits
CPT/HCPCS: 36415; 71045-TC-FY; 80053; 84484; 85025; 85610; 85730; 86704; 86706; 86708; 86803; 86850; 86870; 86900; 86901; 86902; 87340; 93005; 93010; 93971; 94640; 94760; 99284-25; J0131; J1644; J7030

== ENCOUNTER 2018-04-01 13:05 | Inpatient (IN) | payer OTHER ==
--- NOTE | 2018-04-01 13:46 | PDOC ---
History of Present Illness - General Chief Complaint: AV shunt bleeding Stated Complaint: FISTULA Time Seen by Provider: 04/01/18 13:44 History Source: Patient Exam Limitations: No Limitations, Other (poor historian, but answers questions appropriately.) - History of Present Illness Initial Comments: Pt is an 87 yo M, with PMH of ESRD (dialysis T/R/S), A-fib, HTN, and anemia, who was brought from [facility] "for a procedure on his graft with Dr. Diana". The pt went to clinic this AM to "get his graft checked", and was told his AV graft was infected, as he had an open wound with bleeding and pustular drainage at the site. The AV graft has been stented by Dr. Diana ( 03/04/2018), but has clotted again. Pt now has a L subclavian port for dialysis ( T/R/S). The pt complains of pain in the L arm around the site, and pain when the area is touched. He denies any fevers/chills, nausea/vomiting, chest pain, palpitations, urinary symptoms, or diarrhea/constipation. Dr Diana was called during the pt ER stay, who stated there was no emergent need for surgery at this time, as the AV site is clotted. He stated the pt was supposed to present to his clinic this AM for surgery evaluation, and was not scheduled for a procedure today. 04/01/18 16:58 Past History - Travel Traveled outside of the country in the last 30 days: No Close contact w/someone who was outside of country & ill: No - Past Medical History Allergies/Adverse Reactions: Allergies Allergy/AdvReac Type Severity Reaction Status Date / Time No Known Allergies Allergy Verified 04/01/18 13:26 Home Medications: Ambulatory Orders Acetaminophen [Tylenol] 325 mg PO Q6H PRN 10/28/15 Docusate Sodium [Colace -] 300 mg PO HS 10/28/15 Ferrous Sulfate [Feosol] 325 mg PO Q48H 10/28/15 Pantoprazole Sodium [Protonix] 40 mg PO DAILY 10/28/15 Carvedilol 12.5 mg PO Q12H 08/02/17 Diltiazem [Cardizem -] 90 mg PO Q6H 08/02/17 Dorzolamide HCl [Trusopt 2% -] 1 drop OS BID 08/02/17 Fluocinolone/Shower Cap [Fluocinolone 0.01% Scalp Oil] 3 drop AU BID PRN Guaifenesin [Brandy-Tussin] 200 mg PO QID PRN 08/02/17 Latanoprost 0.005% Eye Drops [Xalatan 0.005% Eye Drops -] 1 drop OU HS 08/02/17 Lisinopril [Zestril] 2.5 mg PO DAILY 08/02/17 Timolol 0.5% [Timoptic 0.5%] 1 drop OU BID 08/02/17 Vitamin B Comp W-C [Nephro-Heather -] 0.8 mg PO HS 08/02/17 Albuterol 0.083% Nebulizer Kierra [Ventolin 0.083% Nebulizer Soln -] 1 neb NEB Q6H 01/31/18 Atorvastatin Ca [Lipitor] 40 mg PO HS 01/31/18 Melatonin 3 mg PO HS 01/31/18 Sevelamer Carbonate [Renvela -] 800 mg PO TID 01/31/18 oxyCODONE HCL [Roxicodone -] 5 mg PO Q4H PRN #30 tablet MDD 3 03/05/18 Ondansetron HCl [Zofran] 4 mg PO PRN PRN 04/01/18 Anemia: No Asthma: No Cancer: No Cardiac Disorders: Yes (ATRILA FIBRILLATION) CVA: No COPD: No CHF: No Dementia: Yes (alzheimers) Diabetes: No Dialysis: Yes GI Disorders: No Disorders: Yes (ESRD TUES,TH,SAT) HTN: Yes Hypercholesterolemia: Yes Liver Disease: No Psychiatric Problems: Yes (ALZHEIMER) Seizures: No Thyroid Disease: No - Surgical History Neurologic Surgery: No - Immunization History Immunization Up to Date: No - Suicide/Smoking/Psychosocial Hx Smoking Status: Yes Smoking History: Former smoker Years of Tobacco Use: 22 Have you smoked in the past 12 months: No Number of Cigarettes Smoked Daily: 0 If you are a former smoker, when did you quit?: Over 5 years ago Information on smoking cessation initiated: No Hx Alcohol Use: No Drug/Substance Use Hx: No Substance Use Type: None Hx Substance Use Treatment: No Review of Systems - Review of Systems Able to Perform ROS?: Yes Is the patient limited [place] proficient: No Constitutional: Yes: Loss of Appetite (poor appetite over past few months), Weight Stable. No: Chills, Diaphoresis, Fever, Weakness HEENTM: No: Recent change in vision, Hearing Loss, Throat Swelling, Difficulty Swallowing Respiratory: No: Cough, Orthopnea, Shortness of Breath Cardiac (ROS): No: Chest Pain, Edema, Irregular Heart Rate, Lightheadedness, Palpitations, Syncope, Chest Tightness ABD/GI: Yes: Poor Appetite. No: Abdominal Distended, Constipated, Diarrhea, Nausea, Poor Fluid Intake, Vomiting : No: Burning, Dysuria, Frequency, Hematuria, Pain Musculoskeletal: No: Back Pain, Joint Pain Integumentary: Yes: Lesions (bleeding from open site around AV graft, "pus draining" in clinic this AM). No: Bruising, Rash Neurological: No: Headache, Tingling, Weakness, Unsteady Gait, Ataxia, Dizziness Psychiatric: Yes: Change in Appetite. No: Sleep Pattern Change Endocrine: No: Increased Urine, Change in Weight Hematologic/Lymphatic: Yes: Anemia. No: Blood Clots, Easy Bleeding, Easy Bruising All Other Systems: Reviewed and Negative *Physical Exam - Vital Signs Last Vital Signs Temp Pulse Resp BP Pulse Ox 97.5 F L 56 L 20 159/56 L 97 04/01/18 13:20 04/01/18 13:20 04/01/18 13:20 04/01/18 13:20 04/01/18 13:20 - Physical Exam General Appearance: Yes: Nourished, Appropriately Dressed, Thin. No: Apparent Distress (pt lying comfortably, only complains of pain when site around AV fistula is touched. Able to answer questions appropriately.) HEENT: positive: EOMI, LAUREL, Normal ENT Inspection, Normal Voice, Symmetrical, Pharynx Normal, Hearing Grossly Normal, Other (edematous R eyelid, pt states "getting drops placed in eyes"). negative: Scleral Icterus (R), Scleral Icterus (L), Tonsillar Exudate, Tonsillar Erythema, Rhinorrhea Neck: positive: Trachea midline, Normal Thyroid, Supple. negative: Tender, Rigid, Lymphadenopathy (R), Lymphadenopathy (L) Respiratory/Chest: positive: Lungs Clear, Normal Breath Sounds. negative: Chest Tender, Respiratory Distress, Accessory Muscle Use, Decreased Breath Sounds, Crackles, Wheezing Cardiovascular: positive: S1, S2. negative: Regular Rhythm (pt in A-fib), Regular Rate (bradycardic), Edema, JVD, Murmur Vascular Pulses: Carotid (R): 3+, Carotid (L): 3+ Gastrointestinal/Abdominal: positive: Normal Bowel Sounds, Flat. negative: Tender, Soft, Organomegaly, Pulsatile Mass, Distended, Guarding, Rebound Rectal Exam: positive: deferred Lymphatic: negative: Adenopathy, Tenderness Musculoskeletal: positive: Normal Inspection. negative: CVA Tenderness, Decreased Range of Motion Extremity: positive: Normal Capillary Refill, Normal Range of Motion, Pelvis Stable, Erythema (erythema over mid LUE, near open and draining site. AV graft site edematous.). negative: Normal Inspection, Tender Integumentary: positive: Dry, Warm, Erythema (as above), Other (~1 cm open circular site near AV graft on LUE, draining serosanguinous fluid. Prior closure site more distal to open site, closed and well-healing with 5 clemente. Erythema and warmth near open drainage.). negative: Normal Color, Jaundice, Diaphoresis, Rash Neurologic: positive: principal technical writer II-XII NML intact, Fully Oriented, Alert, Normal Mood/ Affect, Normal Response, Motor Strength 5/5. negative: EOM Palsy, Facial Droop ED Treatment Course - LABORATORY CBC & Chemistry Diagram: 04/01/18 15:21 04/01/18 15:33 Medical Decision Making - Medical Decision Making (entered later) Pt was seen at bedside, also seen by Dr. Herrmann. Pt was brought from [facility] "for a procedure on his graft with Dr. Diana". The pt went to clinic this AM to "get his graft checked", and was told his AV graft was infected, as he had an open wound with bleeding and pustular drainage at the site.. The AV graft has been stented by Dr. Diana, but clotted again. Pt now has a L subclavian port for dialysis (T/R/S). PE showed 1cm circular open wound, with serosanguinous drainage. The area is warm to touch. There is another area near the graft site distally, which has been closed with 5 clemente and appears well-healed. Dr Diana was called, who stated there was no emergent need for surgery at this time, as the AV site is clotted. He stated the pt was supposed to present to his clinic this AM for surgery evaluation, and was not scheduled for a procedure. Spoke with the surgical PA, who stated they will come to see the pt to evaluate if any urgent procedures are needed. Work-up ordered (CBC, CMP, cultures, lactic, ECG, troponin, chest x-ray) to r/o disseminated infection. Appears to be localized cellulitis, but pt is susceptible to resistant organisms considering PMH and open wound site. 04/01/18 15:18 CBC shows anemia, similar to pt baseline (H/H 9.1/27.3) CMP: Na 134, BUN 28, Cr 6.5 (range ~8-11, pt dialyzed yesterday) Lactic .4, Trop <.02 Chest x-ray appears similar to prior. ECG shows atrial flutter (4:1) and LVH, which appears unchanged from prior. Dr. Eddi Jennings was called for admission, who requested that admission be sent to hospitalist. 04/01/18 16:46 Hospitalist team has been paged by frannie, awaiting call back. 04/01/18 17:03 (entered later) Pt was admitted to hospital, spoke with admitting team. They will take over care of the pt. I placed a consult order for nephrology (pt saw Dr. Suleman Casiano during last admission), as pt is due for dialysis again tomorrow. Pt was also seen by surgical PA. Surgical debridement with Dr. Diana is scheduled for tomorrow. Before leaving my shift, Dr. Perez on night team was notified of pt pending admission, and that PO intake should stop by midnight. Pt was lying in bed comfortably, eating dinner. Pt vitals stable, pending move to admission floor. 04/01/18 20:21 *DC/Admit/Observation/Transfer Diagnosis at time of Disposition: ESRD (end stage renal disease) on dialysis Cellulitis Qualifiers: Site of cellulitis: extremity Site of cellulitis of extremity: upper extremity Laterality: left Qualified Code(s): L03.114 - Cellulitis of left upper limb Afib Qualifiers: Atrial fibrillation type: persistent Qualified Code(s): I48.1 - Persistent atrial fibrillation Anemia Qualifiers: Anemia type: unspecified type Qualified Code(s): D64.9 - Anemia, unspecified Clotted renal dialysis arteriovenous graft Qualifiers: Encounter type: initial encounter Qualified Code(s): T82.868A - Thrombosis due to vascular prosthetic devices, implants and grafts, initial encounter - Discharge Dispostion Condition at time of disposition: Stable Decision to Admit order: Yes - Referrals - Patient Instructions - Post Discharge Activity
--- NOTE | 2018-04-01 14:11 | PDOC ---
Attending Attestation - HPI HPI: 04/01/18 15:01 CC: Bleeding AV shunt HPI: The patient is a 87 year old male, with a significant past medical history of ESRD on hemodialysis, Afib, CVA, HTN, HLD, who presents to the emergency department via EMS from [facility] with, a bleeding left AV fistula. As per patient , he is scheduled to have the AV shunt removed from Dr. Diana. Patient notes there was purulent drainage from the shunt today. Patient is a poor historian. Allergies: NKDA Past surgical history: cholecystectomy. Social History: Former smoker (Quit 5 years ago). Denies EtOH use and recreational drug use. Primary Care Physician: [facility]- Dr. Dimple Jennings - Physicial Exam PE: 04/01/18 15:15 Exam: Vitals: Triage Vital signs reviewed General Appearance: no acute distress, well nourished well developed, Head: Atraumatic, normocephalic Nose: No nasal congestion Neck: Supple;No Nuchal rigidity Chest Wall: Nontender Cardiac: Regular rate and rhythm, no murmurs, no rubs, no gallops, Lungs: Clear to auscultation bilateral, good air movement bilaterally, Abdomen: Soft, nondistended, normal bowel sounds, nontender to palpation Rectal: Exam deferred Extremities: Full range of motion to all extremities, no cyanosis, clubbing, or edema +Skin: Left AV fistula warm to touch and tender to palpation with a 1cm oozing ulceration proximal. Warm and dry, no petechiae Neuro: AOX3; Cranial Nerves 2-12 grossly intact, Strength intact to all extremities, Sensation intact to all extremities Psych: normal mood, normal affect - Medical Decision Making 04/01/18 15:02 87 year old male with history of ESRD on hemodialysis, Afib, CVA, HTN, HLD present to the ED with, bleeding AV shunt. Plan is to: EKG Chest x-ray CBC CMP Type and screen PTT PT/INR Troponin Blood/Urine cultures Lactic acid 3:00pm Call placed to Dr. Diana. Case discussed with resident Dr. Heller. 3:20pm Page to surgical PA, case discussed with resident Dr. Heller. <Rica Martinez - Last Filed: 04/01/18 15:19> - Resident Resident Name: Adalgisa Heller - ED Attending Attestation I have performed the following: I have examined & evaluated the patient, The case was reviewed & discussed with the resident, I agree w/resident's findings & plan, Exceptions are as noted - Medical Decision Making Patient with warmth tenderness and early cellulitis over her left AV fistula No fever no white count however given high-risk features including an open nidus as a source of infection will admit for IV vancomycin and further management. Case discussed with patient's vascular surgeon no need for emergent intervention please consult Dr. Diana if needed <Guevara Herrmann - Last Filed: 04/01/18 16:18> Attestations - Attestations 04/01/18 15:03 Documentation prepared by Rica Martinez, acting as territory sales manager medical for Guevara Herrmann MD. <Rica Martinez - Last Filed: 04/01/18 15:19>
[2018-04-01 15:39] LABS: BASO % 0.3 % (0-2.0); EOS % 3.6 % (0-4.5); HEMATOCRIT 27.3 % (35.4-49); HEMOGLOBIN 9.1 GM/dL (11.7-16.9); LYMPH % 8.4 % (8-40); MCH 29.9 pg (25.7-33.7); MCHC 33.2 g/dl (32.0-35.9); MEAN CELL VOLUME 90.1 fl (80-96); MEAN PLT VOLUME 7.4 fl (7.5-11.1); MONO % 7.7 % (3.8-10.2); PLATELET COUNT 213 K/MM3 (134-434); RBC 3.03 M/mm3 (4.00-5.60); RDW 19.3 % (11.9-15.9); WHITE BLOOD COUNT 8.6 K/mm3 (4.0-10.0)
[2018-04-01] MEDS ORDERED: VANCOMYCIN 1,000 MG in DEXTROSE 5%-WATER - 250 ML IVPB ONE (16:18)
[2018-04-01 16:27] LABS: ALBUMIN 2.8 g/dl (3.4-5.0); ALK PHOS 198 U/L (45-117); ANION GAP 11 MMOL/L (8-16); BILIRUBIN,TOTAL 0.5 mg/dL (0.2-1); BLOOD UREA NITROGEN 28 mg/dL (7-18); CALCIUM 7.3 mg/dL (8.5-10.1); CHLORIDE 97 mmol/L (98-107); CO2 27 mmol/L (21-32); CREATININE 6.5 mg/dL (0.55-1.3); GLUCOSE,RANDOM 109 mg/dL (74-106); POTASSIUM 4.1 mmol/L (3.5-5.1); SGOT/AST 14 U/L (15-37); SGPT/ALT 28 U/L (13-61); SODIUM 134 mmol/L (136-145); TOT PROT 7.1 g/dl (6.4-8.2)
--- NOTE | 2018-04-01 16:51 | CONSULT ---
<Alberto Gallardo - Last Filed: 04/01/18 17:02> - Consultation REQUESTING PROVIDER: CONSULT REQUEST: We have been asked to surgically evaluate this patient for ( lue avg ulcer). PCP: HISTORY OF PRESENT ILLNESS: 87 y/o M w/ PMHx ESRD on hemodialysis via Left PC (placed 03/04), Afib, CVA, HTN , HLD, who now presents to the ED via EMS from [facility] with bleeding from his LUE AVG. Per pt, he is scheduled to have a procedure with Dr. Diana today in the office. Reports the ulcer appeared approximately 1.5 weeks ago and has been bleeding spontaneously since. Reports "thick drainage, like pus" coming from the ulcer this morning. Pt is s/p attempted open thrombectomy of the LUE AV graft and balloon angioplasty on 03/[address] Diana. Denies recent fever /chills, n/v/d, abdominal pain. Denies trauma to LUE. AVG last utilized >2week ago. Allergies: NKDA Past surgical history: cholecystectomy. Social History: Former smoker (Quit 5 years ago). Denies EtOH use and recreational drug use. Primary Care Physician: [facility]- Dr. Dimple Jennings Home Medications Medication Instructions Recorded Acetaminophen [Tylenol] 325 mg PO Q6H PRN 10/28/15 Docusate Sodium [Colace -] 300 mg PO HS 10/28/15 Ferrous Sulfate [Feosol] 325 mg PO Q48H 10/28/15 Pantoprazole Sodium [Protonix] 40 mg PO DAILY 10/28/15 Carvedilol 12.5 mg PO Q12H 08/02/17 Diltiazem [Cardizem -] 90 mg PO Q6H 08/02/17 Dorzolamide HCl [Trusopt 2% -] 1 drop OS BID 08/02/17 Fluocinolone/Shower Cap 3 drop AU BID PRN 08/02/17 [Fluocinolone 0.01% Scalp Oil] Guaifenesin [Brandy-Tussin] 200 mg PO QID PRN 08/02/17 Latanoprost 0.005% Eye Drops 1 drop OU HS 08/02/17 [Xalatan 0.005% Eye Drops -] Lisinopril [Zestril] 2.5 mg PO DAILY 08/02/17 Timolol 0.5% [Timoptic 0.5%] 1 drop OU BID 08/02/17 Vitamin B Comp W-C [Nephro-Heather -] 0.8 mg PO HS 08/02/17 Albuterol 0.083% Nebulizer Kierra 1 neb NEB Q6H 01/31/18 [Ventolin 0.083% Nebulizer Soln -] Atorvastatin Ca [Lipitor] 40 mg PO HS 01/31/18 Melatonin 3 mg PO HS 01/31/18 Sevelamer Carbonate [Renvela -] 800 mg PO TID 01/31/18 oxyCODONE HCL [Roxicodone -] 5 mg PO Q4H PRN #30 tablet MDD 3 03/05/18 Ondansetron HCl [Zofran] 4 mg PO PRN PRN 04/01/18 Allergies Allergy/AdvReac Type Severity Reaction Status Date / Time No Known Allergies Allergy Verified 04/01/18 13:26 REVIEW OF SYSTEMS: CONSTITUTIONAL: Absent: fever, chills, diaphoresis CARDIOVASCULAR: Absent: chest pain GASTROINTESTINAL: Absent: abdominal pain SKIN: +ulcer LUE PHYSICAL EXAM: GENERAL: Awake, alert, in no acute distress. HEAD: Normal with no signs of trauma. Chest: L PC in place, dressing c/d/i UPPER EXTREMITIES: LUE with dressing in place over (occluded) AVG, mild blood drainage on dressing. AVG with no thrill/bruit noted, Approx 1x1cm circular ulceration over the mid portion of the AVG with bloody/purulent drainage expressed, no foul odor, no crepitus, +TTP. Mild erythema surrounding ulceration. PSYCH: Cooperative. Vital Signs Temperature 97.5 F L 04/01/18 13:20 Pulse Rate 72 04/01/18 15:38 Respiratory Rate 18 04/01/18 15:38 Blood Pressure 154/64 04/01/18 15:38 O2 Sat by Pulse Oximetry (%) 98 04/01/18 15:38 Lab Results WBC 8.6 K/mm3 (4.0-10.0) 04/01/18 15:21 RBC 3.03 M/mm3 (4.00-5.60) L 04/01/18 15:21 Hgb 9.1 GM/dL (11.7-16.9) L 04/01/18 15:21 Hct 27.3 % (35.4-49) L 04/01/18 15:21 MCV 90.1 fl (80-96) 04/01/18 15:21 MCHC 33.2 g/dl (32.0-35.9) 04/01/18 15:21 RDW 19.3 % (11.9-15.9) H 04/01/18 15:21 Plt Count 213 K/MM3 (134-434) D 04/01/18 15:21 Sodium 134 mmol/L (136-145) L 04/01/18 15:33 Potassium 4.1 mmol/L (3.5-5.1) 04/01/18 15:33 Chloride 97 mmol/L (98-107) L 04/01/18 15:33 Carbon Dioxide 27 mmol/L (21-32) 04/01/18 15:33 Anion Gap 11 MMOL/L (8-16) 04/01/18 15:33 BUN 28 mg/dL (7-18) H 04/01/18 15:33 Creatinine 6.5 mg/dL (0.55-1.3) H 04/01/18 15:33 Random Glucose 109 mg/dL (74-106) H 04/01/18 15:33 Calcium 7.3 mg/dL (8.5-10.1) L 04/01/18 15:33 A/P: 87 y/o M w/ PMHx ESRD on hemodialysis via Left PC (placed 03/04), Afib, CVA , HTN, HLD, who now presents to the ED via EMS from [facility] with bleeding from his LUE AVG. Occluded, infected LUE AVG. Pt afebrile with no leukocytosis in ED. -Admit to medicine -OR tomorrow with Dr Diana for LUE debridement -NPO after midnight -HD per nephrology -labs (cbc, chem, type and screen, coags), ekg, chest xray -Medical clearance for OR -Consent per attending -F/U blood cultures above d/w attending Dr Diana <Krzysztof Diana - Last Filed: 04/02/18 10:16> - Consultation REQUESTING PROVIDER: CONSULT REQUEST: We have been asked to surgically evaluate this patient for ( specify). PCP:Eddi Jennings HISTORY OF PRESENT ILLNESS: PMHx: PSHx: Home Medications Medication Instructions Recorded Acetaminophen [Tylenol] 325 mg PO Q6H PRN 10/28/15 Docusate Sodium [Colace -] 300 mg PO HS 10/28/15 Ferrous Sulfate [Feosol] 325 mg PO Q48H 10/28/15 Pantoprazole Sodium [Protonix] 40 mg PO DAILY 10/28/15 Carvedilol 12.5 mg PO Q12H 08/02/17 Diltiazem [Cardizem -] 90 mg PO Q6H 08/02/17 Dorzolamide HCl [Trusopt 2% -] 1 drop OS BID 08/02/17 Fluocinolone/Shower Cap 3 drop AU BID PRN 08/02/17 [Fluocinolone 0.01% Scalp Oil] Guaifenesin [Brandy-Tussin] 200 mg PO QID PRN 08/02/17 Latanoprost 0.005% Eye Drops 1 drop OU HS 08/02/17 [Xalatan 0.005% Eye Drops -] Lisinopril [Zestril] 2.5 mg PO DAILY 08/02/17 Timolol 0.5% [Timoptic 0.5%] 1 drop OU BID 08/02/17 Vitamin B Comp W-C [Nephro-Heather -] 0.8 mg PO HS 08/02/17 Albuterol 0.083% Nebulizer Kierra 1 neb NEB Q6H 01/31/18 [Ventolin 0.083% Nebulizer Soln -] Atorvastatin Ca [Lipitor] 40 mg PO HS 01/31/18 Melatonin 3 mg PO HS 01/31/18 Sevelamer Carbonate [Renvela -] 800 mg PO TID 01/31/18 oxyCODONE HCL [Roxicodone -] 5 mg PO Q4H PRN #30 tablet MDD 3 03/05/18 Ondansetron HCl [Zofran] 4 mg PO PRN PRN 04/01/18 Allergies Allergy/AdvReac Type Severity Reaction Status Date / Time No Known Allergies Allergy Verified 04/01/18 13:26 REVIEW OF SYSTEMS: CONSTITUTIONAL: Absent: fever, chills, diaphoresis, generalized weakness, malaise, loss of appetite, weight change CARDIOVASCULAR: Absent: chest pain, syncope, palpitations, irregular heart rate, lightheadedness , peripheral edema RESPIRATORY: Absent: cough, shortness of breath, dyspnea with exertion, wheezing, stridor, hemoptysis GASTROINTESTINAL: Absent: abdominal pain, abdominal distension, nausea, vomiting, diarrhea, constipation, melena, hematochezia GENITOURINARY: Absent: dysuria, frequency, urgency, hesitancy, hematuria, flank pain, genital pain MUSCULOSKELETAL: Absent: myalgia, arthralgia, joint swelling, back pain, neck pain SKIN: Absent: rash, itching, pallor HEMATOLOGIC/IMMUNOLOGIC: Absent: easy bleeding, easy bruising, lymphadenopathy NEUROLOGIC: Absent: headache, focal weakness, paresthesias, dizziness, unsteady gait, seizure, mental status changes, bladder or bowel incontinence PSYCHIATRIC: Absent: anxiety, depression, suicidal or homicidal ideation, hallucinations. PHYSICAL EXAM: GENERAL: Awake, alert, and fully oriented, in no acute distress. HEAD: Normal with no signs of trauma. EYES: PERRL, sclera anicteric, conjunctiva clear. NECK: Normal ROM, supple without lymphadenopathy, JVD, or masses. LUNGS: Clear to auscultation bilat anteriorly. No wheezes, and no crackles. No accessory muscle use. HEART: Regular rate and rhythm. No murmurs ABDOMEN: Soft, nontender, not distended, normoactive bowel sounds, no guarding, no rebound, no masses. No organomegaly. MUSCULOSKELETAL: Normal ROM at all joints. No bony deformities or tenderness. No CVA tenderness. UPPER EXTREMITIES: 2+ pulses, warm, well-perfused. No cyanosis. Cap refill <2 seconds. No peripheral edema. LOWER EXTREMITIES: 2+ pulses, warm, well-perfused. No calf tenderness. No peripheral edema. NEUROLOGICAL: Normal speech, gait not observed. PSYCH: Cooperative. Good eye contact. Appropriate mood and affect. SKIN: Warm, dry, normal turgor, no rashes or lesions noted. Vital Signs Temperature 97.6 F 04/02/18 06:17 Pulse Rate 56 L 04/02/18 06:17 Respiratory Rate 18 04/02/18 06:17 Blood Pressure 147/59 L 04/02/18 06:17 O2 Sat by Pulse Oximetry (%) 100 04/01/18 22:00 Lab Results WBC 8.6 K/mm3 (4.0-10.0) 04/01/18 15:21 RBC 3.03 M/mm3 (4.00-5.60) L 04/01/18 15:21 Hgb 9.1 GM/dL (11.7-16.9) L 04/01/18 15:21 Hct 27.3 % (35.4-49) L 04/01/18 15:21 MCV 90.1 fl (80-96) 04/01/18 15:21 MCHC 33.2 g/dl (32.0-35.9) 04/01/18 15:21 RDW 19.3 % (11.9-15.9) H 04/01/18 15:21 Plt Count 213 K/MM3 (134-434) D 04/01/18 15:21 Sodium 134 mmol/L (136-145) L 04/01/18 15:33 Potassium 4.1 mmol/L (3.5-5.1) 04/01/18 15:33 Chloride 97 mmol/L (98-107) L 04/01/18 15:33 Carbon Dioxide 27 mmol/L (21-32) 04/01/18 15:33 Anion Gap 11 MMOL/L (8-16) 04/01/18 15:33 BUN 28 mg/dL (7-18) H 04/01/18 15:33 Creatinine 6.5 mg/dL (0.55-1.3) H 04/01/18 15:33 Random Glucose 109 mg/dL (74-106) H 04/01/18 15:33 Calcium 7.3 mg/dL (8.5-10.1) L 04/01/18 15:33 Blood Type A POSITIVE 04/01/18 14:22 Antibody Screen Negative 04/01/18 14:22 INR 1.09 (0.83-1.09) 04/01/18 15:15 Left arm AV graft has been thrombosed for several weeks and now has open infected wound over midportion of graft (no site of recent attempted thrombectomy). He has Permacath for access. Will need debridement of wound and graft excision. Once infection resolved he will need new AV access in the right arm.
[2018-04-01 17:00] LABS: INR 1.09 (0.83-1.09); PROTHROMBIN TIME (PATIENT) 12.9 SEC (9.7-13.0)
[2018-04-01 17:03] LABS: ACTIVATED PTT 33.9 SECONDS (25.2-36.5)
[2018-04-01] MEDS ORDERED: VANCOMYCIN 1 GRAM (PRE-DOCKED) 1,000 MG/250 ML BAG IVPB ONE (17:13)
[2018-04-01] MEDS ORDERED: HEPARIN NA (PORCINE) 5,000 UNITS/ML 1ML VIAL ONE (18:07)
[2018-04-01] MEDS ORDERED: LIDOCAINE HCL 1%, 10 MG/ML (20ML VIAL) ONE (18:07)
[2018-04-01] MEDS ORDERED: POVIDONE-IODINE OINTMENT 10% - 28.4 GM TUBE ONE (18:07)
--- NOTE | 2018-04-01 19:05 | HP ---
CHIEF COMPLAINT: Infected left upper extremity AV fistula PCP: Dr. Eddi Jennings HISTORY OF PRESENT ILLNESS: 87 year-old male with a PMH significant for HTN, HLD, atrial fibrillation not on anticoagulation, CVA, h/o GI bleed, dementia, and ESRD on HD (,,Wed). Patient has a clogged left upper extremity AV fistula. Dr. Santamaria attempted an open thrombectomy and balloon angioplasty on 03/04/18. The fistula subsequently opened and has been bleeding intermittently for the past 1-2 weeks. This morning the patient observed pus coming out of the wound and he was BIBA to the ED. Patient denies fever, sweats, chills; denies nausea, vomiting, diarrhea. ER course was notable for: (1) Afebrile, no leukocytosis (2) BUN/Cr 28/6.5 Recent Travel: No PAST MEDICAL HISTORY: Hypertension Hyperlipidemia Atrial fibrillation CVA GI bleeding Dementia ESRD on HD (,,Wed) PAST SURGICAL HISTORY: AV fistula Left hip fracture repair (2015) Social History: Smoking: former Alcohol: no Drugs: no Family History: Allergies No Known Allergies Allergy (Verified 04/01/18 13:26) HOME MEDICATIONS: Home Medications Medication Instructions Recorded Acetaminophen [Tylenol] 325 mg PO Q6H PRN 10/28/15 Docusate Sodium [Colace -] 300 mg PO HS 10/28/15 Ferrous Sulfate [Feosol] 325 mg PO Q48H 10/28/15 Pantoprazole Sodium [Protonix] 40 mg PO DAILY 10/28/15 Carvedilol 12.5 mg PO Q12H 08/02/17 Diltiazem [Cardizem -] 90 mg PO Q6H 08/02/17 Dorzolamide HCl [Trusopt 2% -] 1 drop OS BID 08/02/17 Fluocinolone/Shower Cap 3 drop AU BID PRN 08/02/17 [Fluocinolone 0.01% Scalp Oil] Guaifenesin [Brandy-Tussin] 200 mg PO QID PRN 08/02/17 Latanoprost 0.005% Eye Drops 1 drop OU HS 08/02/17 [Xalatan 0.005% Eye Drops -] Lisinopril [Zestril] 2.5 mg PO DAILY 08/02/17 Timolol 0.5% [Timoptic 0.5%] 1 drop OU BID 08/02/17 Vitamin B Comp W-C [Nephro-Heather -] 0.8 mg PO HS 08/02/17 Albuterol 0.083% Nebulizer Kierra 1 neb NEB Q6H 01/31/18 [Ventolin 0.083% Nebulizer Soln -] Atorvastatin Ca [Lipitor] 40 mg PO HS 01/31/18 Melatonin 3 mg PO HS 01/31/18 Sevelamer Carbonate [Renvela -] 800 mg PO TID 01/31/18 oxyCODONE HCL [Roxicodone -] 5 mg PO Q4H PRN #30 tablet MDD 3 03/05/18 Ondansetron HCl [Zofran] 4 mg PO PRN PRN 04/01/18 REVIEW OF SYSTEMS CONSTITUTIONAL: Absent: fever, chills, diaphoresis, generalized weakness, malaise, loss of appetite, weight change HEENT: Absent: rhinorrhea, nasal congestion, throat pain, throat swelling, difficulty swallowing, mouth swelling, ear pain, eye pain, visual changes CARDIOVASCULAR: Absent: chest pain, syncope, palpitations, irregular heart rate, lightheadedness , peripheral edema RESPIRATORY: Absent: cough, shortness of breath, dyspnea with exertion, orthopnea, wheezing, stridor, hemoptysis GASTROINTESTINAL: Absent: abdominal pain, abdominal distension, nausea, vomiting, diarrhea, constipation, melena, hematochezia GENITOURINARY: Absent: dysuria, frequency, urgency, hesitancy, hematuria, flank pain, genital pain MUSCULOSKELETAL: Absent: myalgia, arthralgia, joint swelling, back pain, neck pain SKIN: +bleeding from opening of LUE AV fistula Absent: rash, itching, pallor HEMATOLOGIC/IMMUNOLOGIC: Absent: easy bleeding, easy bruising, lymphadenopathy, frequent infections ENDOCRINE: Absent: unexplained weight gain, unexplained weight loss, heat intolerance, cold intolerance NEUROLOGIC: Absent: headache, focal weakness or paresthesias, dizziness, unsteady gait, seizure, mental status changes, bladder or bowel incontinence PSYCHIATRIC: Absent: anxiety, depression, suicidal or homicidal ideation, hallucinations. PHYSICAL EXAMINATION Vital Signs - 24 hr 04/01/18 04/01/18 04/01/18 13:20 15:25 15:38 Temperature 97.5 F L Pulse Rate 56 L Pulse Rate [ 72 Apical] Respiratory 20 18 Rate Blood Pressure 159/56 L Blood Pressure 154/64 [Right Arm] O2 Sat by Pulse 97 98 98 Oximetry (%) GENERAL: Awake, alert, and fully oriented, in no acute distress. HEAD: Normal with no signs of trauma. EYES: Pupils equal, round and reactive to light, extraocular movements intact, sclera anicteric, conjunctiva clear. Mild right ptosis. EARS, NOSE, THROAT: Ears normal, nares patent, oropharynx clear without exudates. Dry mucous membranes. LUNGS: Breath sounds equal, clear to auscultation bilaterally. No wheezes, and no crackles. No accessory muscle use. HEART: Regular rate and rhythm, S1 and S2 ABDOMEN: Soft, nontender, not distended LEFT UPPER EXTREMITY: left bicep with 1.5cm circumferential open wound, minimal oozing blood; surgical clemente distal to the wound, edges well approximated; there is no erythema or warmth of the bicep; 2+ radial pulse, arm is warm, well- perfused LOWER EXTREMITIES: 2+ pulses, warm, well-perfused. No calf tenderness. No peripheral edema. NEUROLOGICAL: Cranial nerves II-XII intact. Normal speech. Laboratory Results - last 24 hr 04/01/18 04/01/18 04/01/18 14:22 14:22 14:22 WBC Cancelled Corrected WBC (auto) Cancelled RBC Cancelled Hgb Cancelled Hct Cancelled MCV Cancelled MCH Cancelled MCHC Cancelled RDW Cancelled Plt Count Cancelled MPV Cancelled Absolute Neuts (auto) Cancelled Neutrophils % Cancelled Lymphocytes % Cancelled Monocytes % Cancelled Eosinophils % Cancelled Basophils % Cancelled Nucleated RBC % Cancelled Platelet Estimate Cancelled Platelet Comment Cancelled PT with INR INR PTT (Actin FS) Sodium Cancelled Potassium Cancelled Chloride Cancelled Carbon Dioxide Cancelled Anion Gap Cancelled BUN Cancelled Creatinine Cancelled Creat Clearance w eGFR Cancelled Random Glucose Cancelled Lactic Acid Calcium Cancelled Total Bilirubin Cancelled AST Cancelled ALT Cancelled Alkaline Phosphatase Cancelled Troponin I Cancelled Total Protein Cancelled Albumin Cancelled Blood Type A POSITIVE Antibody Screen Negative 04/01/18 04/01/18 04/01/18 14:49 15:15 15:21 WBC 8.6 Corrected WBC (auto) RBC 3.03 L Hgb 9.1 L Hct 27.3 L MCV 90.1 MCH 29.9 MCHC 33.2 RDW 19.3 H Plt Count 213 D MPV 7.4 L Absolute Neuts (auto) 6.9 Neutrophils % 80.0 Lymphocytes % 8.4 D Monocytes % 7.7 Eosinophils % 3.6 Basophils % 0.3 Nucleated RBC % 0 Platelet Estimate Platelet Comment PT with INR 12.90 INR 1.09 PTT (Actin FS) 33.9 Sodium Potassium Chloride Carbon Dioxide Anion Gap BUN Creatinine Creat Clearance w eGFR Random Glucose Lactic Acid 0.4 Calcium Total Bilirubin AST ALT Alkaline Phosphatase Troponin I Total Protein Albumin Blood Type Antibody Screen 04/01/18 04/01/18 15:33 15:33 WBC Corrected WBC (auto) RBC Hgb Hct MCV MCH MCHC RDW Plt Count MPV Absolute Neuts (auto) Neutrophils % Lymphocytes % Monocytes % Eosinophils % Basophils % Nucleated RBC % Platelet Estimate Platelet Comment PT with INR INR PTT (Actin FS) Sodium 134 L Potassium 4.1 Chloride 97 L Carbon Dioxide 27 Anion Gap 11 BUN 28 H Creatinine 6.5 H Creat Clearance w eGFR 8.17 Random Glucose 109 H Lactic Acid Calcium 7.3 L Total Bilirubin 0.5 AST 14 L ALT 28 Alkaline Phosphatase 198 H Troponin I 0.02 Cancelled Total Protein 7.1 Albumin 2.8 L Blood Type Antibody Screen ASSESSMENT/PLAN: 87 year-old male with a PMH significant for HTN, HLD, atrial fibrillation not on anticoagulation, CVA, h/o GI bleed, dementia, and ESRD on HD (T,Th,Sat). Admitted with open wound to LUE AV fistula. ESRD on HD LUE AV fistula wound --s/p open thrombectomy and balloon angioplasty on 03/04/18, surgical clemente still in place --open wound proximal to the surgical incision --plan is to go to OR tomorrow with Dr. Santamaria --NPO after midnight --Vanc x 1g in ED --ID consult --renal consult Hypertension --BP stable --continue carvedilol, diltiazem Hyperlipidemia --continue atorvastatin Atrial fibrillation --rate well-controlled on carvedilol, diltiazem --not on anticoagulation apparently due to h/o GI bleed h/o CVA Dementia DVT prophylaxis: SCDs, oob, ambulation Visit type - Emergency Visit Emergency Visit: Yes ED Registration Date: 04/01/18 Care time: The patient presented to the Emergency Department on the above date and was hospitalized for further evaluation of their emergent condition. - New Patient This patient is new to me today: Yes Date on this admission: 04/01/18 - Critical Care Critical Care patient: No
[2018-04-01] MEDS ORDERED: ACETAMINOPHEN 325 MG TABLET (FP) PO PRN (21:45)
[2018-04-01] MEDS ORDERED: ONDANSETRON 4 MG TABLET PO PRN (21:45)
[2018-04-01] MEDS ORDERED: MELATONIN 1 MG TABLET PO SCH (22:00)
[2018-04-01] MEDS ORDERED: LATANOPROST 0.005% OPHTH SOLN 2.5ML BOTTLE OU SCH (22:00)
[2018-04-01] MEDS ORDERED: ATORVASTATIN CA 40 MG TABLET (FP) PO SCH (22:00)
[2018-04-01] MEDS ORDERED: VITAMIN B COMP W-C 1 EA TABLET PO SCH (22:00)
[2018-04-01] MEDS ORDERED: DOCUSATE SODIUM 100 MG CAPSULE (FP) PO SCH (22:00)
[2018-04-01] MEDS ORDERED: ONDANSETRON *ODT* 4 MG TABLET SL PRN (22:18)
[2018-04-01] MEDS: TIMOLOL 0.5% OPHTHALMIC SOL 5 ML BOTTLE OU SCH (22:53)
[2018-04-01] MEDS: DORZOLAMIDE 2% HCL OPHTHALMIC SOLUTION 10 ML BOTTLE OS SCH (22:53)
[2018-04-01] MEDS: CARVEDILOL 12.5 MG TABLET (FP) PO SCH (22:54)
[2018-04-01] MEDS: dilTIAZem HCL 60 MG TABLET (FP) PO SCH (23:05)
[2018-04-02] MEDS: dilTIAZem HCL 60 MG TABLET (FP) PO SCH ×3 (05:50→17:31)
[2018-04-02] MEDS ORDERED: PT OWN MED DRAWER 7, Y5N ONE ×2 (06:30→21:09)
[2018-04-02] MEDS ORDERED: SEVELAMER CARBONATE 800 MG TAB (FP) PO SCH (08:00)
[2018-04-02] MEDS ORDERED: ALBUTEROL SO4 0.083% IH SOL 2.5 MG/3 ML VIAL.NEB. NEB SCH (08:00)
[2018-04-02] MEDS ORDERED: PROMETHAZINE HCL 25 MG/1 ML VIAL IVPUSH PRN (08:24)
[2018-04-02] MEDS ORDERED: ONDANSETRON 4 MG/2 ML VIAL IVPUSH PRN ×2 (08:24→10:31)
[2018-04-02] MEDS ORDERED: SODIUM CHLORIDE 1,000 ML IV SCH (08:30)
[2018-04-02] MEDS ORDERED: POVIDONE-IODINE OINTMENT 10% - 28.4 GM TUBE ONE (08:40)
[2018-04-02] MEDS ORDERED: LIDOCAINE HCL 1%, 10 MG/ML (20ML VIAL) ONE (08:40)
[2018-04-02] MEDS ORDERED: PROPOFOL 20 ML ONE (09:00)
[2018-04-02] MEDS ORDERED: MIDAZOLAM HCL 2 MG/2 ML SINGLE DOSE VIAL ONE (09:00)
[2018-04-02] MEDS ORDERED: LIDOCAINE HCL/PF 2% SDV 5ML VIAL ONE (09:02)
[2018-04-02] MEDS ORDERED: ceFAZolin SODIUM 1 GM VIAL ONE (09:23)
[2018-04-02] MEDS ORDERED: SODIUM CHLORIDE 0.9% P/F 10 ML VIAL IJ ONE (09:23)
[2018-04-02] MEDS ORDERED: ceFAZolin SODIUM 1 GM VIAL IVPB ONE (09:24)
[2018-04-02] MEDS ORDERED: DEXAMETHASONE SOD PHOSPHATE 4 MG/1 ML VIAL ONE (09:25)
[2018-04-02] MEDS ORDERED: LISINOPRIL 5 MG TABLET (FP) PO SCH (10:00)
[2018-04-02] MEDS ORDERED: PANTOPRAZOLE 40 MG TABLET (FP) PO SCH (10:00)
--- NOTE | 2018-04-02 10:19 | OP ---
Operative Note - Note: Operative Date: 04/02/18 Pre-Operative Diagnosis: Infected graft left upper arm Operation: Excisional debridement of infected prosthetic graft left arm Findings: Old AV graft with multiple stents. Proximal and distal ends well incorporated without signs of infection. Open wound over midportion of graft with exposed graft and stent. Post-Operative Diagnosis: Same as Pre-op Surgeon: Krzysztof Diana Anesthesiologist/CRM DYNAMICS DEVELOPER: Dipak Chow Anesthesia: General Specimens Removed: Old graft in segments Estimated Blood Loss (mls): 30
[2018-04-02] MEDS ORDERED: ACETAMINOPHEN 325 MG TABLET (FP) PO PRN (10:31)
[2018-04-02] MEDS ORDERED: ONDANSETRON *ODT* 4 MG TABLET SL PRN (10:31)
[2018-04-02] MEDS: SEVELAMER CARBONATE 800 MG TAB (FP) PO SCH ×2 (11:20→17:31)
[2018-04-02] MEDS: CARVEDILOL 12.5 MG TABLET (FP) PO SCH ×2 (11:27→22:20)
[2018-04-02] MEDS: DORZOLAMIDE 2% HCL OPHTHALMIC SOLUTION 10 ML BOTTLE OS SCH ×2 (11:28→22:24)
[2018-04-02] MEDS: TIMOLOL 0.5% OPHTHALMIC SOL 5 ML BOTTLE OU SCH ×2 (11:28→22:22)
[2018-04-02] MEDS: ACETAMINOPHEN WITH CODEINE 300MG/30MG TABLET PO PRN (11:30)
[2018-04-02] MEDS: ALBUTEROL SO4 0.083% IH SOL 2.5 MG/3 ML VIAL.NEB. NEB SCH ×3 (11:45→20:10)
[2018-04-02] MEDS ORDERED: oxyCODONE HCL 5 MG TABLET PO ONE (12:15)
[2018-04-02 12:16] VITALS: BMI 20.5
--- NOTE | 2018-04-02 12:16 | CON.NEP ---
Consult Consult Specialty:: nephrology Referred by:: dr street Reason for Consultation:: esrd on hd - History of Present Illness Chief Complaint: clotted access History of Present Illness: 87 yo M ESRD on dialysis A-fib, HTN, and anemia, transferred from [facility] "for a procedure on his graft with Dr. Diana ". he is followed by vascular, recent avg clotting and apparent infectin with bleeding and purulent discharge s/p stent by Dr. Diana (03/04/2018), but has clotted again. L subclavian port for dialysis s/p left arm access surgery c/o pain and tenderness in the L arm around the site, and pain when the area is touched. 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 Cardio/Vascular: Yes: AFIB, HTN, Hyperlipdemia Renal/: Yes: Hemodialysis (CKD) - Past Surgical History Past Surgical History: Yes: Joint Replacement - Alcohol/Substance Use Hx Alcohol Use: No History of Substance Use: reports: None - Smoking History Smoking history: Former smoker Have you smoked in the past 12 months: No Aproximately how many cigarettes per day: 0 If you are a former smoker, when did you quit?: Over 5 years ago - Social History Usual Living Arrangement: Snf ADL: Support Services 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 History of Recent Travel: No Home Medications - Allergies Allergies/Adverse Reactions: Allergies Allergy/AdvReac Type Severity Reaction Status Date / Time No Known Allergies Allergy Verified 04/01/18 13:26 - Home Medications Home Medications: Ambulatory Orders Acetaminophen [Tylenol] 325 mg PO Q6H PRN 10/28/15 Docusate Sodium [Colace -] 300 mg PO HS 10/28/15 Ferrous Sulfate [Feosol] 325 mg PO Q48H 10/28/15 Pantoprazole Sodium [Protonix] 40 mg PO DAILY 10/28/15 Carvedilol 12.5 mg PO Q12H 08/02/17 Diltiazem [Cardizem -] 90 mg PO Q6H 08/02/17 Dorzolamide HCl [Trusopt 2% -] 1 drop OS BID 08/02/17 Fluocinolone/Shower Cap [Fluocinolone 0.01% Scalp Oil] 3 drop AU BID PRN Guaifenesin [Brandy-Tussin] 200 mg PO QID PRN 08/02/17 Latanoprost 0.005% Eye Drops [Xalatan 0.005% Eye Drops -] 1 drop OU HS 08/02/17 Lisinopril [Zestril] 2.5 mg PO DAILY 08/02/17 Timolol 0.5% [Timoptic 0.5%] 1 drop OU BID 08/02/17 Vitamin B Comp W-C [Nephro-Heather -] 0.8 mg PO HS 08/02/17 Albuterol 0.083% Nebulizer Kierra [Ventolin 0.083% Nebulizer Soln -] 1 neb NEB Q6H 01/31/18 Atorvastatin Ca [Lipitor] 40 mg PO HS 01/31/18 Melatonin 3 mg PO HS 01/31/18 Sevelamer Carbonate [Renvela -] 800 mg PO TID 01/31/18 oxyCODONE HCL [Roxicodone -] 5 mg PO Q4H PRN #30 tablet MDD 3 03/05/18 Ondansetron HCl [Zofran] 4 mg PO PRN PRN 04/01/18 Family Disease History - Family Disease History Family Disease History: Other: Father (: unclear cause), Mother (: 50: complications from HTN), Brother (6, 1 alive: Does not know the cause of their deaths), Sister (6, : Does not know the cause of ), Daughter (2, healthy) Nephrology Consult - Height Height: 5 ft 5 in - Weight Weight: 123 lb 4 oz - BMI Body Mass Index (BMI): 20.5 - Lab Results CBC,BMP: CBC, BMP 04/01/18 15:21 04/01/18 15:33 Anion Gap: Anion Gap Anion Gap 11 MMOL/L (8-16) 04/01/18 15:33 - Physical Examination Vital Signs: Vital Signs Temperature 98.1 F 04/02/18 11:25 Pulse Rate 54 L 04/02/18 11:25 Respiratory Rate 20 04/02/18 11:25 Blood Pressure 163/66 04/02/18 11:25 O2 Sat by Pulse Oximetry (%) 99 04/02/18 11:40 Assessment/Plan ESRD ON HD INFECTED L AVG S/P SURGICAL REMOVAL OF INFECTED AVG
[2018-04-02] MEDS ORDERED: SODIUM CHLORIDE 250 ML IV PRN (12:19)
[2018-04-02] MEDS ORDERED: oxyCODONE HCL 5 MG TABLET PO PRN (13:11)
--- NOTE | 2018-04-02 13:13 | PN ---
Progress Note, Physician History of Present Illness: pt seen/ examined. chart reviewed c/c - pain -- surgical site - Current Medication List Current Medications: Active Medications Acetaminophen (Tylenol -) 325 mg PO Q6H PRN PRN Reason: PAIN 1-3 Acetaminophen/Codeine Phosphate (Tylenol # 3 -) 1 tab PO Q4H PRN PRN Reason: PAIN LEVEL 6-10 Last Admin: 04/02/18 11:30 Dose: 1 tab Albuterol Sulfate (Ventolin 0.083% Nebulizer Soln -) 1 amp NEB RQID [facility] Atorvastatin Calcium (Lipitor -) 40 mg PO HS [facility] Carvedilol (Coreg -) 12.5 mg PO BID [facility] Diltiazem HCl (Cardizem -) 90 mg PO Q6HPO [facility] Last Admin: 04/02/18 11:22 Dose: Not Given Docusate Sodium (Colace -) 300 mg PO HS [facility] Dorzolamide HCl (Trusopt 2%) 1 drop OS BID [facility] Sodium Chloride (Normal Saline -) 250 mls @ 3,000 mls/hr IV PRN PRN PRN Reason: Hypotension during Dialysis Stop: 04/03/18 12:20 Vancomycin HCl 1,000 mg/ (Dextrose) 250 mls @ 166.667 mls/hr IVPB ONCE ONE; Protocol Stop: 04/02/18 20:37 Latanoprost (Xalatan 0.005% Eye Drops -) 1 drop OU HS [facility] Lisinopril (Prinivil) 2.5 mg PO DAILY [facility] Melatonin (Melatonin) 3 mg PO HS [facility] Multivit/Ca Carb/B Cmplx/FA/Prenat (Nephro-Heather -) 1 tablet PO HS [facility] Ondansetron HCl (Zofran Odt -) 4 mg SL Q6H PRN PRN Reason: NAUSEA AND/OR VOMITING Ondansetron HCl (Zofran Injection) 4 mg IVPUSH Q6H PRN PRN Reason: NAUSEA AND/OR VOMITING Oxycodone HCl (Roxicodone -) 5 mg PO Q6H PRN PRN Reason: PAIN LEVEL 6-10 Pantoprazole Sodium (Protonix -) 40 mg PO DAILY [facility] Sevelamer Carbonate (Renvela -) 800 mg PO TIDCM [facility] Last Admin: 04/02/18 11:20 Dose: 800 mg Timolol Maleate (Timoptic 0.5%) 1 drop OU BID PRISCILA - Objective Vital Signs: Vital Signs Temperature 98.1 F 04/02/18 11:25 Pulse Rate 54 L 04/02/18 11:25 Respiratory Rate 20 04/02/18 11:25 Blood Pressure 163/66 04/02/18 11:25 O2 Sat by Pulse Oximetry (%) 99 04/02/18 11:40 Constitutional: Yes: Mild Distress Eyes: Yes: Conjunctiva Clear Neck: Yes: Supple Cardiovascular: Yes: Regular Rate and Rhythm Respiratory: Yes: Diminished Gastrointestinal: Yes: Soft Extremities: Yes: Other (lue -- dressing +) Neurological: Yes: Alert Labs: CBC, BMP 04/01/18 15:21 04/01/18 15:33 INR, PTT INR 1.09 (0.83-1.09) 04/01/18 15:15 Problem List - Problems (1) Afib Code(s): I48.91 - UNSPECIFIED ATRIAL FIBRILLATION Qualifiers: Atrial fibrillation type: persistent Qualified Code(s): I48.1 - Persistent atrial fibrillation (2) Clotted renal dialysis arteriovenous graft Code(s): T82.868A - THROMBOSIS DUE TO VASCULAR PROSTH DEV/GRFT, INIT Qualifiers: Encounter type: initial encounter Qualified Code(s): T82.868A - Thrombosis due to vascular prosthetic devices, implants and grafts, initial encounter (3) ESRD (end stage renal disease) on dialysis Code(s): N18.6 - END STAGE RENAL DISEASE; Z99.2 - DEPENDENCE ON RENAL DIALYSIS Assessment/Plan In summary 87 yr male with ESRD on HD (), Atrial fibrillation, anemia, mild dementia and htn presents with LUE AVG clot with ulceration/purulent drainage/ pain at site Infected AVG site/clot - s/p excisional debridement Abx pain control dialysis today will follow Discussed with renal/ and i/d also-- as well as nursing staff
--- NOTE | 2018-04-02 13:16 | CON.ID ---
Consult - History of Present Illness History of Present Illness: 87 y.o. male with PMH of ESRD on HD (/), LUE AV graft with stents s/p open thrombectomy and balloon angioplasty on 03/04/18, Lt chest wall HD catheter , Atrial fibrillation, HTN, anemia presents with c/o LUE AVG site pain, ulceration with bleeding and purulent drainage ( for past 3 days as per pt.). Pt currently with clotted AVG. He denies fever, chills, chest pain, or shortness of breath. Pt is now s/p excisional debridement of graft and remains alert and afebrile. He denies any other specific complaints. 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 Cardio/Vascular: Yes: AFIB, HTN, Hyperlipdemia Renal/: Yes: Hemodialysis (CKD) - Past Surgical History Past Surgical History: Yes: Joint Replacement - Alcohol/Substance Use Hx Alcohol Use: No History of Substance Use: reports: None - Smoking History Smoking history: Former smoker Have you smoked in the past 12 months: No Aproximately how many cigarettes per day: 0 If you are a former smoker, when did you quit?: Over 5 years ago - Social History Usual Living Arrangement: Fdc ADL: Support Services 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 History of Recent Travel: No Home Medications - Allergies Allergies/Adverse Reactions: Allergies Allergy/AdvReac Type Severity Reaction Status Date / Time No Known Allergies Allergy Verified 04/01/18 13:26 - Home Medications Home Medications: Ambulatory Orders Acetaminophen [Tylenol] 325 mg PO Q6H PRN 10/28/15 Docusate Sodium [Colace -] 300 mg PO HS 10/28/15 Ferrous Sulfate [Feosol] 325 mg PO Q48H 10/28/15 Pantoprazole Sodium [Protonix] 40 mg PO DAILY 10/28/15 Carvedilol 12.5 mg PO Q12H 08/02/17 Diltiazem [Cardizem -] 90 mg PO Q6H 08/02/17 Dorzolamide HCl [Trusopt 2% -] 1 drop OS BID 08/02/17 Fluocinolone/Shower Cap [Fluocinolone 0.01% Scalp Oil] 3 drop AU BID PRN Guaifenesin [Brandy-Tussin] 200 mg PO QID PRN 08/02/17 Latanoprost 0.005% Eye Drops [Xalatan 0.005% Eye Drops -] 1 drop OU HS 08/02/17 Lisinopril [Zestril] 2.5 mg PO DAILY 08/02/17 Timolol 0.5% [Timoptic 0.5%] 1 drop OU BID 08/02/17 Vitamin B Comp W-C [Nephro-Heather -] 0.8 mg PO HS 08/02/17 Albuterol 0.083% Nebulizer Kierra [Ventolin 0.083% Nebulizer Soln -] 1 neb NEB Q6H 01/31/18 Atorvastatin Ca [Lipitor] 40 mg PO HS 01/31/18 Melatonin 3 mg PO HS 01/31/18 Sevelamer Carbonate [Renvela -] 800 mg PO TID 01/31/18 oxyCODONE HCL [Roxicodone -] 5 mg PO Q4H PRN #30 tablet MDD 3 03/05/18 Ondansetron HCl [Zofran] 4 mg PO PRN PRN 04/01/18 Family Disease History - Family Disease History Family Disease History: Other: Father (: unclear cause), Mother (: 50: complications from HTN), Brother (6, 1 alive: Does not know the cause of their deaths), Sister (6, : Does not know the cause of ), Daughter (2, healthy) Review of Systems - Review of Systems Constitutional: reports: No Symptoms Eyes: reports: No Symptoms HENT: reports: No Symptoms Neck: reports: No Symptoms Cardiovascular: reports: No Symptoms Respiratory: reports: No Symptoms Gastrointestinal: reports: No Symptoms Genitourinary: reports: No Symptoms Breasts: reports: No Symptoms Reported Musculoskeletal: reports: No Symptoms Integumentary: reports: Wound (LUE dressing intact) Neurological: reports: No Symptoms Endocrine: reports: No Symptoms Hematology/Lymphatic: reports: No Symptoms Psychiatric: reports: No Symptoms Physical Exam Vital Signs: Vital Signs Temperature 98.1 F 04/02/18 11:25 Pulse Rate 54 L 04/02/18 11:25 Respiratory Rate 20 04/02/18 11:25 Blood Pressure 163/66 04/02/18 11:25 O2 Sat by Pulse Oximetry (%) 99 04/02/18 11:40 Constitutional: Yes: No Distress, Calm Eyes: Yes: Conjunctiva Clear HENT: Yes: Atraumatic Cardiovascular: Yes: Regular Rate and Rhythm Respiratory: Yes: CTA Bilaterally Gastrointestinal: Yes: Normal Bowel Sounds, Soft Musculoskeletal: Yes: WNL Extremities: Yes: WNL Integumentary: Yes: WNL Wound/Incision: Yes: Dressing Dry and Intact (LUE) Neurological: Yes: Alert Psychiatric: Yes: Alert Labs: CBC, BMP 04/01/18 15:21 04/01/18 15:33 Blood/Wound cultures - pending Imaging - Results Chest X-ray: Report Reviewed Problem List - Problems (1) Afib Code(s): I48.91 - UNSPECIFIED ATRIAL FIBRILLATION Qualifiers: Atrial fibrillation type: persistent Qualified Code(s): I48.1 - Persistent atrial fibrillation (2) Anemia Code(s): D64.9 - ANEMIA, UNSPECIFIED Qualifiers: Anemia type: unspecified type Qualified Code(s): D64.9 - Anemia, unspecified (3) Clotted renal dialysis arteriovenous graft Code(s): T82.868A - THROMBOSIS DUE TO VASCULAR PROSTH DEV/GRFT, INIT Qualifiers: Encounter type: initial encounter Qualified Code(s): T82.868A - Thrombosis due to vascular prosthetic devices, implants and grafts, initial encounter (4) ESRD (end stage renal disease) on dialysis Code(s): N18.6 - END STAGE RENAL DISEASE; Z99.2 - DEPENDENCE ON RENAL DIALYSIS (5) End stage renal disease Code(s): N18.6 - END STAGE RENAL DISEASE (6) Hypertension Code(s): I10 - ESSENTIAL (PRIMARY) HYPERTENSION Qualifiers: Hypertension type: essential hypertension Qualified Code(s): I10 - Essential (primary) hypertension Assessment/Plan 87 y.o. male with ESRD on HD (//Wed), Atrial fibrillation, anemia, dementia, HTN presents with LUE AVG clot with ulceration/purulent drainage/pain at site Infected AVG site/clot - s/p excisional debridement ESRD on HD -- Vancomycin post HD empirically, monitor levels -- f/u results of blood and wound cultures -- Renal following -- pt is currently afebrile, alert continue monitor vitals d/w PMD will follow Thank you
--- NOTE | 2018-04-02 15:01 | EKG ---
Test Reason : Blood Pressure : / mmHG Vent. 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
[2018-04-02] MEDS: VANCOMYCIN 1 GRAM (PRE-DOCKED) 1,000 MG/250 ML BAG IVPB ONE ×2 (16:25→18:28)
[2018-04-02] MEDS: DOCUSATE SODIUM 100 MG CAPSULE (FP) PO SCH (22:19)
[2018-04-02] MEDS: VITAMIN B COMP W-C 1 EA TABLET PO SCH (22:21)
[2018-04-02] MEDS: ATORVASTATIN CA 40 MG TABLET (FP) PO SCH (22:21)
[2018-04-02] MEDS: MELATONIN 1 MG TABLET PO SCH (22:21)
[2018-04-02] MEDS: LATANOPROST 0.005% OPHTH SOLN 2.5ML BOTTLE OU SCH (22:25)
[2018-04-03] MEDS: dilTIAZem HCL 60 MG TABLET (FP) PO SCH ×5 (00:42→23:58)
[2018-04-03] MEDS ORDERED: PT OWN MED DRAWER 7, Y5N ONE ×2 (06:41→08:56)
[2018-04-03] MEDS: ALBUTEROL SO4 0.083% IH SOL 2.5 MG/3 ML VIAL.NEB. NEB SCH ×4 (07:35→20:33)
[2018-04-03] MEDS: PANTOPRAZOLE 40 MG TABLET (FP) PO SCH (09:20)
[2018-04-03] MEDS: CARVEDILOL 12.5 MG TABLET (FP) PO SCH ×2 (09:20→21:52)
[2018-04-03] MEDS: LISINOPRIL 5 MG TABLET (FP) PO SCH (09:20)
[2018-04-03] MEDS: SEVELAMER CARBONATE 800 MG TAB (FP) PO SCH ×3 (09:20→17:41)
[2018-04-03] MEDS: DORZOLAMIDE 2% HCL OPHTHALMIC SOLUTION 10 ML BOTTLE OS SCH ×3 (09:22→22:11)
[2018-04-03] MEDS: TIMOLOL 0.5% OPHTHALMIC SOL 5 ML BOTTLE OU SCH ×3 (09:22→22:10)
--- NOTE | 2018-04-03 12:40 | PN ---
Progress Note, Physician Chief Complaint: day1 s/p resection infected AV graft - Current Medication List Current Medications: Active Medications Acetaminophen (Tylenol -) 325 mg PO Q6H PRN PRN Reason: PAIN 1-3 Acetaminophen/Codeine Phosphate (Tylenol # 3 -) 1 tab PO Q4H PRN PRN Reason: PAIN LEVEL 6-10 Last Admin: 04/02/18 11:30 Dose: 1 tab Albuterol Sulfate (Ventolin 0.083% Nebulizer Soln -) 1 amp NEB RQID [facility] Last Admin: 04/03/18 07:35 Dose: Not Given Atorvastatin Calcium (Lipitor -) 40 mg PO [facility] Last Admin: 04/02/18 22:21 Dose: 40 mg Carvedilol (Coreg -) 12.5 mg PO BID [facility] Last Admin: 04/03/18 09:20 Dose: 12.5 mg Diltiazem HCl (Cardizem -) 90 mg PO Q6HPO [facility] Last Admin: 04/03/18 06:03 Dose: 90 mg Docusate Sodium (Colace -) 300 mg PO [facility] Last Admin: 04/02/18 22:19 Dose: 300 mg Dorzolamide HCl (Trusopt 2%) 1 drop OS BID [facility] Last Admin: 04/03/18 09:22 Dose: 1 drop Latanoprost (Xalatan 0.005% Eye Drops -) 1 drop OU [facility] Last Admin: 04/02/18 22:25 Dose: 1 drop Lisinopril (Prinivil) 2.5 mg PO DAILY [facility] Last Admin: 04/03/18 09:20 Dose: 2.5 mg Melatonin (Melatonin) 3 mg PO [facility] Last Admin: 04/02/18 22:21 Dose: 3 mg Multivit/Ca Carb/B Cmplx/FA/Prenat (Nephro-Heather -) 1 tablet PO [facility] Last Admin: 04/02/18 22:21 Dose: 1 tablet Ondansetron HCl (Zofran Odt -) 4 mg SL Q6H PRN PRN Reason: NAUSEA AND/OR VOMITING Ondansetron HCl (Zofran Injection) 4 mg IVPUSH Q6H PRN PRN Reason: NAUSEA AND/OR VOMITING Oxycodone HCl (Roxicodone -) 5 mg PO Q6H PRN PRN Reason: PAIN LEVEL 6-10 Pantoprazole Sodium (Protonix -) 40 mg PO DAILY [facility] Last Admin: 04/03/18 09:20 Dose: 40 mg Sevelamer Carbonate (Renvela -) 800 mg PO TIDCM [facility] Last Admin: 04/03/18 09:20 Dose: 800 mg Timolol Maleate (Timoptic 0.5%) 1 drop OU BID [facility] Last Admin: 04/03/18 09:22 Dose: 1 drop - Objective Vital Signs: Vital Signs Temperature 98.6 F 04/03/18 05:47 Pulse Rate 87 04/03/18 05:47 Respiratory Rate 18 04/03/18 05:47 Blood Pressure 144/61 04/03/18 05:47 O2 Sat by Pulse Oximetry (%) 97 04/02/18 20:46 Labs: CBC, BMP 04/01/18 15:21 04/01/18 15:33 INR, PTT INR 1.09 (0.83-1.09) 04/01/18 15:15 Assessment/Plan Doing well today after MAC for removal infected AVG. No anesthetic issues/ complications.
--- NOTE | 2018-04-03 12:46 | PN ---
Progress Note (short form) - Note Progress Note: Pt seen/ examined comfortable afebrile cultures -ve so far pain ok Vital Signs Temp 98.6 F 04/03/18 05:47 Pulse 87 04/03/18 05:47 Resp 18 04/03/18 05:47 BP 144/61 04/03/18 05:47 Pulse Ox 97 04/02/18 20:46 Intake & Output 04/02/18 04/03/18 04/03/18 23:59 11:59 23:59 Intake Total 250 440 Output Total 0 Balance 250 440 Weight 123 lb 4 oz 123 lb 2 oz Intake: IVPB 250 Oral 440 Output: Urine 0 Void 0 Other: Voiding Method Urinal Urinal Bowel Movement No Height 5 ft 5 in Body Mass Index (BMI) 20.5 Weight Measurement Method Standing Scale Active Medications Acetaminophen (Tylenol -) 325 mg PO Q6H PRN PRN Reason: PAIN 1-3 Acetaminophen/Codeine Phosphate (Tylenol # 3 -) 1 tab PO Q4H PRN PRN Reason: PAIN LEVEL 6-10 Last Admin: 04/02/18 11:30 Dose: 1 tab Albuterol Sulfate (Ventolin 0.083% Nebulizer Soln -) 1 amp NEB RQID [facility] Last Admin: 04/03/18 07:35 Dose: Not Given Atorvastatin Calcium (Lipitor -) 40 mg PO [facility] Last Admin: 04/02/18 22:21 Dose: 40 mg Carvedilol (Coreg -) 12.5 mg PO BID [facility] Last Admin: 04/03/18 09:20 Dose: 12.5 mg Diltiazem HCl (Cardizem -) 90 mg PO Q6HPO [facility] Last Admin: 04/03/18 06:03 Dose: 90 mg Docusate Sodium (Colace -) 300 mg PO [facility] Last Admin: 04/02/18 22:19 Dose: 300 mg Dorzolamide HCl (Trusopt 2%) 1 drop OS BID [facility] Last Admin: 04/03/18 09:22 Dose: 1 drop Latanoprost (Xalatan 0.005% Eye Drops -) 1 drop OU [facility] Last Admin: 04/02/18 22:25 Dose: 1 drop Lisinopril (Prinivil) 2.5 mg PO DAILY [facility] Last Admin: 04/03/18 09:20 Dose: 2.5 mg Melatonin (Melatonin) 3 mg PO [facility] Last Admin: 04/02/18 22:21 Dose: 3 mg Multivit/Ca Carb/B Cmplx/FA/Prenat (Nephro-Heather -) 1 tablet PO [facility] Last Admin: 04/02/18 22:21 Dose: 1 tablet Ondansetron HCl (Zofran Odt -) 4 mg SL Q6H PRN PRN Reason: NAUSEA AND/OR VOMITING Ondansetron HCl (Zofran Injection) 4 mg IVPUSH Q6H PRN PRN Reason: NAUSEA AND/OR VOMITING Oxycodone HCl (Roxicodone -) 5 mg PO Q6H PRN PRN Reason: PAIN LEVEL 6-10 Pantoprazole Sodium (Protonix -) 40 mg PO DAILY [facility] Last Admin: 04/03/18 09:20 Dose: 40 mg Sevelamer Carbonate (Renvela -) 800 mg PO TIDCM [facility] Last Admin: 04/03/18 09:20 Dose: 800 mg Timolol Maleate (Timoptic 0.5%) 1 drop OU BID [facility] Last Admin: 04/03/18 09:22 Dose: 1 drop CBC, BMP 04/01/18 15:21 04/01/18 15:33 Microbiology 04/02/18 09:30 Gram Stain - Final Arm - Left Upper Wound Culture - Preliminary NO GROWTH OBTAINED AFTER 24 HOURS INCUBATION, REINCUBATED. 04/01/18 15:05 Blood Culture - Preliminary Blood - Peripheral Venous NO GROWTH OBTAINED AFTER 24 HOURS, INCUBATION TO CONTINUE FOR 4 DAYS. 04/01/18 12:43 Blood Culture - Preliminary Blood - Peripheral Venous NO GROWTH OBTAINED AFTER 24 HOURS, INCUBATION TO CONTINUE FOR 4 DAYS. Physical Constitutional: Yes: No Distress Eyes: Yes: Conjunctiva Clear Neck: Yes: Supple Cardiovascular: Yes: Regular Rate and Rhythm Respiratory: Yes: Diminished Gastrointestinal: Yes: Soft/ non tender Extremities: Yes: Other (lue -- dressing +) Neurological: Yes: Alert/ awake Assessment/Plan In summary 87 yr male with ESRD on HD (//Wed), Atrial fibrillation, anemia, mild dementia and htn presents with LUE AVG clot with ulceration/purulent drainage/ pain at site Infected AVG site/clot - s/p excisional debridement Better Abx pain control dialysis yesterday f/u cultures abx - vanco per level i/d on case will follow Problem List - Problems (1) Afib Code(s): I48.91 - UNSPECIFIED ATRIAL FIBRILLATION Qualifiers: Atrial fibrillation type: persistent Qualified Code(s): I48.1 - Persistent atrial fibrillation (2) Clotted renal dialysis arteriovenous graft Code(s): T82.868A - THROMBOSIS DUE TO VASCULAR PROSTH DEV/GRFT, INIT Qualifiers: Encounter type: initial encounter Qualified Code(s): T82.868A - Thrombosis due to vascular prosthetic devices, implants and grafts, initial encounter (3) ESRD (end stage renal disease) on dialysis Code(s): N18.6 - END STAGE RENAL DISEASE; Z99.2 - DEPENDENCE ON RENAL DIALYSIS
--- NOTE | 2018-04-03 13:38 | PN ---
Progress Note (short form) - Note Progress Note: S/p graft excision. No pain Blood cultures negative. Dressing change tomorrow. Will need creation of new access in right arm when wound improves.
--- NOTE | 2018-04-03 13:48 | PN ---
Progress Note, Physician History of Present Illness: Pt is alert, afebrile, without acute distress. Mild pain at surgical site. - Current Medication List Current Medications: Active Medications Acetaminophen (Tylenol -) 325 mg PO Q6H PRN PRN Reason: PAIN 1-3 Acetaminophen/Codeine Phosphate (Tylenol # 3 -) 1 tab PO Q4H PRN PRN Reason: PAIN LEVEL 6-10 Last Admin: 04/02/18 11:30 Dose: 1 tab Albuterol Sulfate (Ventolin 0.083% Nebulizer Soln -) 1 amp NEB RQID [facility] Last Admin: 04/03/18 07:35 Dose: Not Given Atorvastatin Calcium (Lipitor -) 40 mg PO HS [facility] Last Admin: 04/02/18 22:21 Dose: 40 mg Carvedilol (Coreg -) 12.5 mg PO BID [facility] Last Admin: 04/03/18 09:20 Dose: 12.5 mg Diltiazem HCl (Cardizem -) 90 mg PO Q6HPO [facility] Last Admin: 04/03/18 13:30 Dose: 90 mg Docusate Sodium (Colace -) 300 mg PO [facility] Last Admin: 04/02/18 22:19 Dose: 300 mg Dorzolamide HCl (Trusopt 2%) 1 drop OS BID [facility] Last Admin: 04/03/18 09:22 Dose: 1 drop Latanoprost (Xalatan 0.005% Eye Drops -) 1 drop OU [facility] Last Admin: 04/02/18 22:25 Dose: 1 drop Lisinopril (Prinivil) 2.5 mg PO DAILY [facility] Last Admin: 04/03/18 09:20 Dose: 2.5 mg Melatonin (Melatonin) 3 mg PO [facility] Last Admin: 04/02/18 22:21 Dose: 3 mg Multivit/Ca Carb/B Cmplx/FA/Prenat (Nephro-Heather -) 1 tablet PO [facility] Last Admin: 04/02/18 22:21 Dose: 1 tablet Ondansetron HCl (Zofran Odt -) 4 mg SL Q6H PRN PRN Reason: NAUSEA AND/OR VOMITING Ondansetron HCl (Zofran Injection) 4 mg IVPUSH Q6H PRN PRN Reason: NAUSEA AND/OR VOMITING Oxycodone HCl (Roxicodone -) 5 mg PO Q6H PRN PRN Reason: PAIN LEVEL 6-10 Pantoprazole Sodium (Protonix -) 40 mg PO DAILY [facility] Last Admin: 04/03/18 09:20 Dose: 40 mg Sevelamer Carbonate (Renvela -) 800 mg PO TIDCM [facility] Last Admin: 04/03/18 13:31 Dose: 800 mg Timolol Maleate (Timoptic 0.5%) 1 drop OU BID [facility] Last Admin: 04/03/18 09:22 Dose: 1 drop - Objective Vital Signs: Vital Signs Temperature 98.6 F 04/03/18 05:47 Pulse Rate 56 L 04/03/18 13:39 Respiratory Rate 18 04/03/18 13:39 Blood Pressure 133/53 L 04/03/18 13:39 O2 Sat by Pulse Oximetry (%) 97 04/02/18 20:46 Constitutional: Yes: No Distress, Calm Cardiovascular: Yes: Regular Rate and Rhythm Respiratory: Yes: Regular Gastrointestinal: Yes: Normal Bowel Sounds, Soft Wound/Incision: Yes: Dressing Dry and Intact Psychiatric: Yes: Alert Labs: CBC, BMP 04/01/18 15:21 04/01/18 15:33 INR, PTT INR 1.09 (0.83-1.09) 04/01/18 15:15 Microbiology 04/02/18 09:30 Arm - Left Upper Gram Stain - Final 04/02/18 09:30 Arm - Left Upper Wound Culture - Preliminary NO GROWTH OBTAINED AFTER 24 HOURS INCUBATION, REINCUBATED. 04/01/18 15:05 Blood - Peripheral Venous Blood Culture - Preliminary NO GROWTH OBTAINED AFTER 24 HOURS, INCUBATION TO CONTINUE FOR 4 DAYS. 04/01/18 12:43 Blood - Peripheral Venous Blood Culture - Preliminary NO GROWTH OBTAINED AFTER 24 HOURS, INCUBATION TO CONTINUE FOR 4 DAYS. Problem List - Problems (1) Afib Code(s): I48.91 - UNSPECIFIED ATRIAL FIBRILLATION Qualifiers: Atrial fibrillation type: persistent Qualified Code(s): I48.1 - Persistent atrial fibrillation (2) Anemia Code(s): D64.9 - ANEMIA, UNSPECIFIED Qualifiers: Anemia type: unspecified type Qualified Code(s): D64.9 - Anemia, unspecified (3) Clotted renal dialysis arteriovenous graft Code(s): T82.868A - THROMBOSIS DUE TO VASCULAR PROSTH DEV/GRFT, INIT Qualifiers: Encounter type: initial encounter Qualified Code(s): T82.868A - Thrombosis due to vascular prosthetic devices, implants and grafts, initial encounter (4) ESRD (end stage renal disease) on dialysis Code(s): N18.6 - END STAGE RENAL DISEASE; Z99.2 - DEPENDENCE ON RENAL DIALYSIS (5) End stage renal disease Code(s): N18.6 - END STAGE RENAL DISEASE (6) Hypertension Code(s): I10 - ESSENTIAL (PRIMARY) HYPERTENSION Qualifiers: Hypertension type: essential hypertension Qualified Code(s): I10 - Essential (primary) hypertension Assessment/Plan 87 y.o. male with ESRD on HD (//Wed), Atrial fibrillation, anemia, dementia, HTN presents with LUE AVG clot with ulceration/purulent drainage/pain at site Infected AVG /clot - s/p excisional debridement ESRD on HD -- Vancomycin level in a.m. -- f/u final results of blood and wound cultures - no growth so far, if remains neg. plan to d/c antibiotics -- pt is currently afebrile, alert -- wound care
--- NOTE | 2018-04-03 20:31 | PN ---
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 S/P SURGICAL REMOVAL OF INFECTED AVG Current Medications Acetaminophen (Tylenol -) 325 mg PO Q6H PRN PRN Reason: PAIN 1-3 Acetaminophen/Codeine Phosphate (Tylenol # 3 -) 1 tab PO Q4H PRN PRN Reason: PAIN LEVEL 6-10 Last Admin: 04/02/18 11:30 Dose: 1 tab Albuterol Sulfate (Ventolin 0.083% Nebulizer Soln -) 1 amp NEB RQID [facility] Last Admin: 04/03/18 16:45 Dose: Not Given Atorvastatin Calcium (Lipitor -) 40 mg PO HS [facility] Last Admin: 04/02/18 22:21 Dose: 40 mg Carvedilol (Coreg -) 12.5 mg PO BID [facility] Last Admin: 04/03/18 09:20 Dose: 12.5 mg Diltiazem HCl (Cardizem -) 90 mg PO Q6HPO [facility] Last Admin: 04/03/18 17:39 Dose: 90 mg Docusate Sodium (Colace -) 300 mg PO [facility] Last Admin: 04/02/18 22:19 Dose: 300 mg Dorzolamide HCl (Trusopt 2%) 1 drop OS BID [facility] Last Admin: 04/03/18 09:22 Dose: 1 drop Latanoprost (Xalatan 0.005% Eye Drops -) 1 drop OU [facility] Last Admin: 04/02/18 22:25 Dose: 1 drop Lisinopril (Prinivil) 2.5 mg PO DAILY [facility] Last Admin: 04/03/18 09:20 Dose: 2.5 mg Melatonin (Melatonin) 3 mg PO [facility] Last Admin: 04/02/18 22:21 Dose: 3 mg Multivit/Ca Carb/B Cmplx/FA/Prenat (Nephro-Heather -) 1 tablet PO [facility] Last Admin: 04/02/18 22:21 Dose: 1 tablet Ondansetron HCl (Zofran Odt -) 4 mg SL Q6H PRN PRN Reason: NAUSEA AND/OR VOMITING Ondansetron HCl (Zofran Injection) 4 mg IVPUSH Q6H PRN PRN Reason: NAUSEA AND/OR VOMITING Oxycodone HCl (Roxicodone -) 5 mg PO Q6H PRN PRN Reason: PAIN LEVEL 6-10 Pantoprazole Sodium (Protonix -) 40 mg PO DAILY [facility] Last Admin: 04/03/18 09:20 Dose: 40 mg Sevelamer Carbonate (Renvela -) 800 mg PO TIDCM [facility] Last Admin: 04/03/18 17:41 Dose: 800 mg Timolol Maleate (Timoptic 0.5%) 1 drop OU BID [facility] Last Admin: 04/03/18 09:22 Dose: 1 drop Last Vital Signs Temp Pulse Resp BP Pulse Ox 98 F 56 L 18 133/53 L 97 04/03/18 09:00 04/03/18 13:39 04/03/18 13:39 04/03/18 13:39 04/03/18 09:00 Lungs clear Heart reg abd soft nontender ext no edema CBC, BMP 04/01/18 15:21 04/01/18 15:33 Microbiology 04/01/18 15:05 Blood - Peripheral Venous Blood Culture - Preliminary NO GROWTH OBTAINED AFTER 48 HOURS, INCUBATION TO CONTINUE FOR 3 DAYS. 04/01/18 12:43 Blood - Peripheral Venous Blood Culture - Preliminary NO GROWTH OBTAINED AFTER 48 HOURS, INCUBATION TO CONTINUE FOR 3 DAYS. 04/02/18 09:30 Arm - Left Upper Gram Stain - Final 04/02/18 09:30 Arm - Left Upper Wound Culture - Preliminary NO GROWTH OBTAINED AFTER 24 HOURS INCUBATION, REINCUBATED. IMP- esrd s/p excision of infected avg Plan- monitor renal function and blood cultures
[2018-04-03] MEDS: ATORVASTATIN CA 40 MG TABLET (FP) PO SCH (21:50)
[2018-04-03] MEDS: VITAMIN B COMP W-C 1 EA TABLET PO SCH (21:51)
[2018-04-03] MEDS: DOCUSATE SODIUM 100 MG CAPSULE (FP) PO SCH (21:51)
[2018-04-03] MEDS: MELATONIN 1 MG TABLET PO SCH (21:52)
[2018-04-03] MEDS: LATANOPROST 0.005% OPHTH SOLN 2.5ML BOTTLE OU SCH ×2 (21:53→22:11)
[2018-04-03] MEDS: ACETAMINOPHEN WITH CODEINE 300MG/30MG TABLET PO PRN (21:58)
[2018-04-04 06:26] LABS: HEMATOCRIT 25.6 % (35.4-49); HEMOGLOBIN 8.3 GM/dL (11.7-16.9); MCH 29.2 pg (25.7-33.7); MCHC 32.4 g/dl (32.0-35.9); MEAN CELL VOLUME 90.1 fl (80-96); MEAN PLT VOLUME 7.4 fl (7.5-11.1); PLATELET COUNT 177 K/MM3 (134-434); RBC 2.84 M/mm3 (4.00-5.60); RDW 19.3 % (11.9-15.9); WHITE BLOOD COUNT 6.6 K/mm3 (4.0-10.0)
[2018-04-04] MEDS: dilTIAZem HCL 60 MG TABLET (FP) PO SCH ×2 (06:54→13:00)
[2018-04-04 07:12] LABS: ALBUMIN 2.4 g/dl (3.4-5.0); ALK PHOS 161 U/L (45-117); ANION GAP 11 MMOL/L (8-16); BILIRUBIN,TOTAL 0.6 mg/dL (0.2-1); BLOOD UREA NITROGEN 31 mg/dL (7-18); CALCIUM 7.7 mg/dL (8.5-10.1); CHLORIDE 98 mmol/L (98-107); CO2 30 mmol/L (21-32); CREATININE 7.3 mg/dL (0.55-1.3); GLUCOSE,RANDOM 86 mg/dL (74-106); POTASSIUM 3.9 mmol/L (3.5-5.1); SGOT/AST 12 U/L (15-37); SGPT/ALT 15 U/L (13-61); SODIUM 139 mmol/L (136-145); TOT PROT 6.2 g/dl (6.4-8.2)
[2018-04-04] MEDS: ALBUTEROL SO4 0.083% IH SOL 2.5 MG/3 ML VIAL.NEB. NEB SCH ×2 (08:32→11:36)
--- NOTE | 2018-04-04 09:07 | PN ---
Progress Note (short form) - Note Progress Note: Pt seen and examined. States he is doing well this AM, requesting to go home today. Reports mild pain in LUE relieved by Tylenol. Has been oob without issue. Tolerating PO. Denies cp/sob, n/v/d, calf pain/edema. Vital Signs Temp 98.0 F 04/04/18 05:00 Pulse 62 04/04/18 05:00 Resp 18 04/04/18 05:00 BP 138/53 L 04/04/18 05:00 Pulse Ox 97 04/03/18 21:00 Intake & Output 04/03/18 04/03/18 04/04/18 11:59 23:59 11:59 Intake Total 440 0 100 Output Total 0 Balance 440 0 100 Weight 123 lb 2 oz 126 lb 4 oz Intake: IVPB 0 Oral 440 100 Output: Urine 0 Void 0 Other: Voiding Method Urinal Urinal Bowel Movement No Weight Measurement Method Standing Scale Standing Scale CBC, BMP 04/04/18 06:00 04/04/18 06:00 Gen: awake, alert, nad Resp: cta b/l CV: rrr, s1s2 LUE: dressing removed, moderate dried blood on 4x4. Packing removed, mild bleeding from incision, controlled with <1min of continuous pressure. Wound bed clean based, no purulent drainage, no necrotic skin noted. Wound edges clean. No foul odor. Incision repacked with wet to dry 4x4, kerlix and raimundo wrap. A/P: 87 y/o M w/ PMHx ESRD on hemodialysis via Left PC (placed 03/04), Afib, CVA , HTN, HLD, a/w bleeding from his LUE AVG, now s/p excisional debridement of infected prosthetic graft left arm on 04/02. Doing well this AM, wound clean, left open and packed. Preliminary wound/blood cultures negative. -F/U final cultures -F/U RUE vein mapping -Continue RUE limb alert -Pt needs VNS set up for dressing changes at home -Pt cleared for d/c from vascular perspective above d/w attending Dr Diana
[2018-04-04 10:18] VITALS: TEMP 98.1
[2018-04-04] MEDS: SEVELAMER CARBONATE 800 MG TAB (FP) PO SCH ×2 (10:20→13:01)
[2018-04-04] MEDS: PANTOPRAZOLE 40 MG TABLET (FP) PO SCH (10:20)
[2018-04-04] MEDS: LISINOPRIL 5 MG TABLET (FP) PO SCH (10:21)
[2018-04-04] MEDS: CARVEDILOL 12.5 MG TABLET (FP) PO SCH (10:21)
[2018-04-04] MEDS: TIMOLOL 0.5% OPHTHALMIC SOL 5 ML BOTTLE OU SCH (10:34)
[2018-04-04] MEDS: DORZOLAMIDE 2% HCL OPHTHALMIC SOLUTION 10 ML BOTTLE OS SCH (10:34)
--- NOTE | 2018-04-04 11:09 | DS ---
Physical Examination Vital Signs: Vital Signs Temperature 98.1 F 04/04/18 09:00 Pulse Rate 55 L 04/04/18 09:00 Respiratory Rate 18 04/04/18 09:00 Blood Pressure 134/53 L 04/04/18 09:00 O2 Sat by Pulse Oximetry (%) 97 04/03/18 21:00 Findings/Remarks: pt seen/ examined comfortable no complains Constitutional: Yes: No Distress Neck: Yes: Supple Respiratory: Yes: CTA Bilaterally Gastrointestinal: Yes: Soft Extremities: Yes: Other (left upper extremity-- dressing + -- changed today) Edema: No Neurological: Yes: Alert Labs: CBC, BMP 04/04/18 06:00 04/04/18 06:00 Discharge Summary Reason For Visit: CELLULITIS,ESRD ON DIALYSIS Current Active Problems Afib (Acute) Anemia (Acute) Cellulitis (Acute) Clotted renal dialysis arteriovenous graft (Acute) ESRD (end stage renal disease) on dialysis (Acute) Hospital Course: pt admitted for infected avf fistula Pt underwent Operative Date: 04/02/18 Pre-Operative Diagnosis: Infected graft left upper arm Operation: Excisional debridement of infected prosthetic graft left arm Findings: Old AV graft with multiple stents. Proximal and distal ends well incorporated without signs of infection. Open wound over midportion of graft with exposed graft and stent. Treated with abx cultures -ve i/d also followed now stable for d/c to group home dressing change instructions given by vascular pt to follow with vascular for mapping and new avf meds reconcilled pt in agreement Condition: Stable - Instructions Diet, Activity, Other Instructions: daily dressing changes F/u With Dr. Camilo -- Call office to schedule appointment . Disposition: [facility] - Home Medications Comprehensive Discharge Medication List: Ambulatory Orders Acetaminophen [Tylenol] 325 mg PO Q6H PRN 10/28/15 Docusate Sodium [Colace -] 300 mg PO HS 10/28/15 Ferrous Sulfate [Feosol] 325 mg PO Q48H 10/28/15 Pantoprazole Sodium [Protonix] 40 mg PO DAILY 10/28/15 Carvedilol 12.5 mg PO Q12H 08/02/17 Diltiazem [Cardizem -] 90 mg PO Q6H 08/02/17 Dorzolamide HCl [Trusopt 2% -] 1 drop OS BID 08/02/17 Fluocinolone/Shower Cap [Fluocinolone 0.01% Scalp Oil] 3 drop AU BID PRN Latanoprost 0.005% Eye Drops [Xalatan 0.005% Eye Drops -] 1 drop OU HS 08/02/17 Lisinopril [Zestril] 2.5 mg PO DAILY 08/02/17 Timolol 0.5% [Timoptic 0.5%] 1 drop OU BID 08/02/17 Vitamin B Comp W-C [Nephro-Heather -] 0.8 mg PO HS 08/02/17 Albuterol 0.083% Nebulizer Kierra [Ventolin 0.083% Nebulizer Soln -] 1 neb NEB Q6H 01/31/18 Atorvastatin Ca [Lipitor] 40 mg PO HS 01/31/18 Melatonin 3 mg PO HS 01/31/18 Sevelamer Carbonate [Renvela -] 800 mg PO TID 01/31/18 oxyCODONE HCL [Roxicodone -] 5 mg PO Q4H PRN #30 tablet MDD 3 03/05/18
--- NOTE | 2018-04-04 12:47 | PN ---
Progress Note, Physician History of Present Illness: stable no issues says after pupil dilation he is not able to see properly - Current Medication List Current Medications: Active Medications Acetaminophen (Tylenol -) 325 mg PO Q6H PRN PRN Reason: PAIN 1-3 Last Admin: 04/04/18 10:22 Dose: 325 mg Acetaminophen/Codeine Phosphate (Tylenol # 3 -) 1 tab PO Q4H PRN PRN Reason: PAIN LEVEL 6-10 Last Admin: 04/03/18 21:58 Dose: 1 tab Albuterol Sulfate (Ventolin 0.083% Nebulizer Soln -) 1 amp NEB RQID [facility] Last Admin: 04/04/18 11:36 Dose: Not Given Atorvastatin Calcium (Lipitor -) 40 mg PO [facility] Last Admin: 04/03/18 21:50 Dose: 40 mg Carvedilol (Coreg -) 12.5 mg PO BID [facility] Last Admin: 04/04/18 10:21 Dose: 12.5 mg Diltiazem HCl (Cardizem -) 90 mg PO Q6HPO [facility] Last Admin: 04/04/18 06:54 Dose: 90 mg Docusate Sodium (Colace -) 300 mg PO [facility] Last Admin: 04/03/18 21:51 Dose: 300 mg Dorzolamide HCl (Trusopt 2%) 1 drop OS BID [facility] Last Admin: 04/04/18 10:34 Dose: Not Given Latanoprost (Xalatan 0.005% Eye Drops -) 1 drop OU [facility] Last Admin: 04/03/18 22:11 Dose: Not Given Lisinopril (Prinivil) 2.5 mg PO DAILY [facility] Last Admin: 04/04/18 10:21 Dose: 2.5 mg Melatonin (Melatonin) 3 mg PO [facility] Last Admin: 04/03/18 21:52 Dose: 3 mg Multivit/Ca Carb/B Cmplx/FA/Prenat (Nephro-Heather -) 1 tablet PO [facility] Last Admin: 04/03/18 21:51 Dose: 1 tablet Ondansetron HCl (Zofran Odt -) 4 mg SL Q6H PRN PRN Reason: NAUSEA AND/OR VOMITING Ondansetron HCl (Zofran Injection) 4 mg IVPUSH Q6H PRN PRN Reason: NAUSEA AND/OR VOMITING Oxycodone HCl (Roxicodone -) 5 mg PO Q6H PRN PRN Reason: PAIN LEVEL 6-10 Pantoprazole Sodium (Protonix -) 40 mg PO DAILY [facility] Last Admin: 04/04/18 10:20 Dose: 40 mg Sevelamer Carbonate (Renvela -) 800 mg PO TIDCM [facility] Last Admin: 04/04/18 10:20 Dose: 800 mg Timolol Maleate (Timoptic 0.5%) 1 drop OU BID [facility] Last Admin: 04/04/18 10:34 Dose: Not Given - Objective Vital Signs: Vital Signs Temperature 98.1 F 04/04/18 09:00 Pulse Rate 55 L 04/04/18 09:00 Respiratory Rate 18 04/04/18 09:00 Blood Pressure 134/53 L 04/04/18 09:00 O2 Sat by Pulse Oximetry (%) 97 04/03/18 21:00 Constitutional: Yes: No Distress, Calm Cardiovascular: Yes: S1, S2 Respiratory: Yes: Regular, CTA Bilaterally Gastrointestinal: Yes: Normal Bowel Sounds, Soft Musculoskeletal: Yes: WNL Extremities: Yes: Other Neurological: Yes: Alert, Oriented Psychiatric: Yes: Alert, Oriented Labs: CBC, BMP 04/04/18 06:00 04/04/18 06:00 INR, PTT INR 1.09 (0.83-1.09) 04/01/18 15:15 Assessment/Plan Problem List - Problems (1) Afib Code(s): I48.91 - UNSPECIFIED ATRIAL FIBRILLATION Qualifiers: Atrial fibrillation type: persistent Qualified Code(s): I48.1 - Persistent atrial fibrillation (2) Anemia Code(s): D64.9 - ANEMIA, UNSPECIFIED Qualifiers: Anemia type: unspecified type Qualified Code(s): D64.9 - Anemia, unspecified (3) Clotted renal dialysis arteriovenous graft Code(s): T82.868A - THROMBOSIS DUE TO VASCULAR PROSTH DEV/GRFT, INIT Qualifiers: Encounter type: initial encounter Qualified Code(s): T82.868A - Thrombosis due to vascular prosthetic devices, implants and grafts, initial encounter (4) ESRD (end stage renal disease) on dialysis Code(s): N18.6 - END STAGE RENAL DISEASE; Z99.2 - DEPENDENCE ON RENAL DIALYSIS (5) End stage renal disease Code(s): N18.6 - END STAGE RENAL DISEASE (6) Hypertension Code(s): I10 - ESSENTIAL (PRIMARY) HYPERTENSION Qualifiers: Hypertension type: essential hypertension Qualified Code(s): I10 - Essential (primary) hypertension Assessment/Plan 87 y.o. male with ESRD on HD (T//Wed), Atrial fibrillation, anemia, dementia, HTN presents with LUE AVG clot with ulceration/purulent drainage/pain at site continue current mgmt rest as per the team
[2018-04-04 13:35] VITALS: BP 99/48; PULSE 53
[2018-04-05 06:06] LABS: HBSAG SCREEN Negative (Negative); HEP A AB, IGM Negative (Negative); HEP B CORE AB, TOT Negative (Negative)
--- NOTE | 2018-04-05 12:43 | PATH ---
Surgical Pathology Report Patient Name: YESICA LEE Med. Rec. #: [id number] /Age/Gender: 1930 (Age: 87) / M Account: [id number] Location: [facility] MED/SURG Taken: 04/03/2018 Received: 04/04/2018 Reported: 04/05/2018 Physicians: Krzysztof Diana M.D. PHYSICIAN EMERGENCY DEPT Specimen(s) Received PROXIMAL AV GRAFT LEFT ARM Clinical History Infected AV graft left arm Final Diagnosis PROXIMAL A-V GRAFT, ARM, LEFT, REMOVAL: CONSISTENT WITH GRAFT MATERIAL. MACROSCOPIC DIAGNOSIS. PORTION OF UNREMARKABLE SKIN. Electronically Signed Fallon Caceres M.D. Gross Description Received fresh labeled "proximal A-V graft left arm," are 4 portions of graft containing weldon metallic stents ranging from 1.3-5.0 cm in length. The largest portion displays attached brown skin. No sections are submitted, gross only. DL/04/04/2018 [place]/04/04/2018
--- NOTE | 2018-04-08 08:52 | OP ---
DATE OF OPERATION: 04/02/2018 SURGEON: Krzysztof Nugent MD PROCEDURE: Excisional debridement of an infected prosthetic graft, left arm. PREOPERATIVE DIAGNOSIS: Infected graft, left upper arm. POSTOPERATIVE DIAGNOSIS: Infected graft, left upper arm. ANESTHESIA: General. ANESTHESIOLOGIST: Dipak Chow MD OPERATIVE FINDINGS: There was a thrombosed AV graft in the left upper extremity containing multiple metal stents. There was an open wound over the mid portion of the graft. The proximal distal ends of the graft were well incorporated in the subcutaneous tissues without signs of infection. OPERATIVE PROCEDURE: Following routine patient identification with side and site verification, general anesthesia was induced. The left arm was prepped with Betadine solution. The open wound was covered with Betadine sponge and occlusive dressing. Incisions were made over the proximal and distal ends of the graft in the upper arm, and the graft material was from subcutaneous tissues using cautery for hemostasis. The graft was transected both sites, and as it was thrombosed, there was no need to close the remaining portion. The portion extending towards the wound was from subcutaneous tissues for several centimeters and excised. Metal stents were removed with the graft. These wounds were then closed with interrupted subcutaneous sutures of 3-0 Vicryl and skin clemente and covered with occlusive dressings. The ulcerated area was exposed, and the ulcer was excised extending into the subcutaneous tissues using cautery for hemostasis. The graft segments were excised as far proximally and distally as possible to try to remove the remaining portion of the intervening sections. The wound was irrigated with Bacitracin solution and packed open with Iodoform gauze. Sterile dressings were applied, and the patient was taken to the recovery room in stable condition. KRZYSZTOF NUGENT M.D. [id number]
== END 2018-04-04 16:30 | DRG 252 ==
LOC: JER 13:05 → JERBED 19:02 → J7W 21:46
PROVIDERS: ADMIT Internal Medicine; ATTEND Internal Medicine
PROC: 0JBF0ZZ Excision of Left Upper Arm Subcutaneous Tissue and Fascia, Open Approach (ICD-10-PCS; 2018-04-02)
PROC: 03QY0ZZ Repair Upper Artery, Open Approach (ICD-10-PCS; principal; 2018-04-02 09:00)
DX: T82.7XXA Infection and inflammatory reaction due to other cardiac and vascular devices, implants and grafts, initial encounter (principal); N18.6 End stage renal disease; I48.1 Persistent atrial fibrillation; I12.0 Hypertensive chronic kidney disease with stage 5 chronic kidney disease or end stage renal disease; Y83.9 Surgical procedure, unspecified as the cause of abnormal reaction of the patient, or of later complication, without mention of misadventure at the time of the procedure; T82.868A Thrombosis due to vascular prosthetic devices, implants and grafts, initial encounter; F03.90 Unspecified dementia, unspecified severity, without behavioral disturbance, psychotic disturbance, mood disturbance, and anxiety; D64.9 Anemia, unspecified; E78.5 Hyperlipidemia, unspecified
CPT/HCPCS: 36415; 71045-TC-FY; 80053; 83605; 84484; 85025; 85027; 85610; 85730; 86704; 86706; 86708; 86803; 86850; 86900; 86901; 87040; 87070; 87205; 87340; 88300-TC; 93005; 93010; 93971; 94640; 94760; 99285-25; G0480; J1644

== ENCOUNTER 2018-05-27 09:49 | Day surgery (SDC) | payer OTHER ==
[2018-05-26 18:48] VITALS: BMI 21.6
[2018-05-27] MEDS ORDERED: POVIDONE-IODINE OINTMENT 10% - 28.4 GM TUBE ONE (10:26)
[2018-05-27] MEDS ORDERED: PAPAVERINE HCL 30 MG/1 ML 10 ML VIAL NR ONE (10:26)
[2018-05-27] MEDS ORDERED: HEPARIN NA (PORCINE) 5,000 UNITS/ML 1ML VIAL ONE (10:26)
[2018-05-27] MEDS ORDERED: LIDOCAINE HCL 1%, 10 MG/ML (20ML VIAL) ONE (10:26)
--- NOTE | 2018-05-27 10:31 | HP ---
Satellite [facility] - Chief Complaint History of Present Illness: 87 year old man with ESRD on HD recently treated for infected AV fistula left arm with excision. He requires new access creation. 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: Yes: Dementia Cardiovascular: Yes: AFIB, HTN, Hyperlipdemia Renal/: Yes: Hemodialysis (CKD) Heme/Onc: Yes: Anemia - Current Medications Current Medications: Home Medications Medication Instructions Recorded Acetaminophen [Tylenol] 325 mg PO Q6H PRN 10/28/15 Docusate Sodium [Colace -] 300 mg PO HS 10/28/15 Ferrous Sulfate [Feosol] 325 mg PO Q48H 10/28/15 Pantoprazole Sodium [Protonix] 40 mg PO DAILY 10/28/15 Carvedilol 12.5 mg PO Q12H 08/02/17 Diltiazem [Cardizem -] 90 mg PO Q6H 08/02/17 Dorzolamide HCl [Trusopt 2% -] 1 drop OS BID 08/02/17 Fluocinolone/Shower Cap 3 drop AU BID PRN 08/02/17 [Fluocinolone 0.01% Scalp Oil] Latanoprost 0.005% Eye Drops 1 drop OU HS 08/02/17 [Xalatan 0.005% Eye Drops -] Lisinopril [Zestril] 2.5 mg PO DAILY 08/02/17 Timolol 0.5% [Timoptic 0.5%] 1 drop OU BID 08/02/17 Vitamin B Comp W-C [Nephro-Heather -] 0.8 mg PO HS 08/02/17 Albuterol 0.083% Nebulizer Kierra 1 neb NEB Q6H 01/31/18 [Ventolin 0.083% Nebulizer Soln -] Atorvastatin Ca [Lipitor] 40 mg PO HS 01/31/18 Melatonin 3 mg PO HS 01/31/18 Sevelamer Carbonate [Renvela -] 800 mg PO TID 01/31/18 oxyCODONE HCL [Roxicodone -] 5 mg PO Q4H PRN #30 tablet MDD 3 03/05/18 Satellite Physical Exam - Physical Examination General Appearance: Alert & Oriented x3 ENT: Clear Lung: Clear to auscultation Heart: Regular rate & rhythm Abdomen: Soft Extremities: No edema, Other (palpable right brachial and radial pulse) Neurological: Intact Satellite Impression/Plan - Impression/Plan Impression: ESRD on HD Operative Procedure: Placement AV graft right arm Date to be Performed: 05/27/18
[2018-05-27] MEDS ORDERED: ceFAZolin SODIUM 1 GM VIAL IVPB ONE (11:45)
[2018-05-27] MEDS ORDERED: ceFAZolin SODIUM 1 GM VIAL ONE (11:45)
[2018-05-27] MEDS ORDERED: MIDAZOLAM HCL 2 MG/2 ML SINGLE DOSE VIAL ONE (11:47)
[2018-05-27] MEDS ORDERED: LIDOCAINE HCL 1%, 10 MG/ML (20ML VIAL) NR ONE (11:48)
--- NOTE | 2018-05-27 13:37 | OP ---
Operative Note - Note: Operative Date: 05/27/18 Pre-Operative Diagnosis: ESRD on HD Operation: Placement AV graft right arm Findings: Patent axillary artery and vein Implants: 4-7 mm PTFE stretch graft Post-Operative Diagnosis: Same as Pre-op Surgeon: Krzysztof Diana Anesthesiologist/CONSTRUCTION TRADES CONTRACTOR: Daly Flanagan Anesthesia: Fractional Estimated Blood Loss (mls): 100
[2018-05-27] MEDS ORDERED: ACETAMINOPHEN 325 MG TABLET (FP) PO ONE (13:38)
[2018-05-27] MEDS ORDERED: SODIUM CHLORIDE 1,000 ML IV SCH (13:45)
[2018-05-27] MEDS ORDERED: ACETAMINOPHEN 325 MG TABLET (FP) PO PRN ×2 (13:46→13:47)
[2018-05-27] MEDS ORDERED: oxyCODONE HCL 5 MG TABLET PO PRN ×2 (13:46→13:47)
[2018-05-27 15:51] VITALS: TEMP 98
[2018-05-27 20:02] VITALS: BP 150/70; PULSE 67
--- NOTE | 2018-06-01 11:33 | OP ---
DATE OF OPERATION: 05/27/2018 SURGEON: Krzysztof Nugent MD PROCEDURE: Placement of arteriovenous graft, right arm. PREOPERATIVE DIAGNOSIS: End-stage renal disease. POSTOPERATIVE DIAGNOSIS: End-stage renal disease. ANESTHESIA: Fractional. ANESTHESIOLOGIST: OPERATIVE FINDINGS: The right axillary vein and artery were patent. OPERATIVE PROCEDURE: Following routine patient identification, with side and site verification, intravenous sedation was established. The right arm, axilla and chest wall were prepped with ChloraPrep. A time-out was performed. One percent Xylocaine was infiltrated in the axilla over the axillary pulse. A longitudinal incision was made and was carried in the subcutaneous plane using cautery for hemostasis. The axillary artery and vein were identified and mobilized with sharp dissection. They were encircled proximally and distally with vessel loops. The side branches were ligated with silk ties and divided. A counterincision was made proximal to the elbow crease and a curved metal tunneler passed in the subcutaneous plane between the 2 incisions. A 4-7 mm Stretch PTFE graft was passed through the tunneler, with the short end next to the artery. The tunneler was then repassed over the anterior aspect of the arm and the graft pulled back in a loop configuration. The axillary artery was occluded with bulldog clamps and opened on the exposed surface with a 6-mm arteriotomy. The small end of the graft was beveled and anastomosed to the side of the artery with a running suture of 6-0 Prolene. Prior to completion of the suture line, the graft was occluded with a clamp and the artery was allowed to back bleed and flushed. The lumen was filled with heparin solution. The suture line was completed and the artery was released. Bleeding from the suture line was controlled with Surgicel. When hemostasis was adequate, the vein was occluded with vessel loops and clamps, and opened with a 15-mm venotomy. The large end of the graft was beveled and anastomosed to the side of the vein with a running suture of 6-0 Prolene. Prior to completion of the suture line, the vein was allowed to back bleed and was flushed with heparin solution. The graft was flushed. The suture line was completed. All vessels were released. There was good flow through the graft, with a palpable pulse present. When hemostasis was adequate, the wound was irrigated and closed with an interrupted suture of 3-0 Vicryl and skin clemente. Sterile dressings were applied. The patient was taken to the recovery room in stable condition. KRZYSZTOF NUGENT M.D. [id number]
== END 2018-05-27 16:20 ==
LOC: JASU-SURG 09:49
PROVIDERS: ATTEND Surgery
PROC: 03150JD Bypass Right Axillary Artery to Upper Arm Vein with Synthetic Substitute, Open Approach (ICD-10-PCS; principal; 2018-05-27 12:00)
DX: I12.0 Hypertensive chronic kidney disease with stage 5 chronic kidney disease or end stage renal disease (principal); N18.6 End stage renal disease; Z99.2 Dependence on renal dialysis
CPT/HCPCS: 36415; 84132; 94760; J1644

== ENCOUNTER 2018-06-20 06:31 | Emergency (ER) | payer OTHER ==
[2018-06-20 06:49] VITALS: BMI 22.9
--- NOTE | 2018-06-20 07:28 | PDOC ---
History of Present Illness - General Chief Complaint: Blood Sugar Problem Stated Complaint: SHORTNESS OF BREATH, HYPOGLYCEMIA Time Seen by Provider: 06/20/18 07:15 History Source: Patient Exam Limitations: No Limitations - History of Present Illness Initial Comments: 06/20/18 07:32 88y F hx of ESRD (TTS, last dialysis Sa), dementia, afib, htn, presents via EMS from [facility] with hypoglycemia. The pt states he has been havin some sneezing/ coughing/sob for the past few days. denies any fever/chills. angelina palaciosy cp. per EMS, pts blood sugar was low this morning to 40s and was given glucogon by EMS and was improved. Pt endorses n/v while in the ambulance, Pt denies any cp, abd pain, abck pain, leg swelling, orthpnea. Pt anuric at baseine PMD Dr. Jennings Past History - Past Medical History Allergies/Adverse Reactions: Allergies Allergy/AdvReac Type Severity Reaction Status Date / Time No Known Allergies Allergy Verified 06/20/18 06:49 Home Medications: Ambulatory Orders Acetaminophen [Tylenol] 325 mg PO Q6H PRN 10/28/15 Docusate Sodium [Colace -] 300 mg PO HS 10/28/15 Ferrous Sulfate [Feosol] 325 mg PO Q48H 10/28/15 Pantoprazole Sodium [Protonix] 40 mg PO DAILY 10/28/15 Carvedilol 12.5 mg PO Q12H 08/02/17 Diltiazem [Cardizem -] 90 mg PO Q6H 08/02/17 Fluocinolone/Shower Cap [Fluocinolone 0.01% Scalp Oil] 3 drop AU BID PRN Latanoprost 0.005% Eye Drops [Xalatan 0.005% Eye Drops -] 1 drop OU HS 08/02/17 Lisinopril [Zestril] 2.5 mg PO DAILY 08/02/17 Timolol 0.5% [Timoptic 0.5%] 1 drop OU BID 08/02/17 Vitamin B Comp W-C [Nephro-Heather -] 0.8 mg PO HS 08/02/17 Albuterol 0.083% Nebulizer Kierra [Ventolin 0.083% Nebulizer Soln -] 1 neb NEB Q6H 01/31/18 Atorvastatin Ca [Lipitor] 40 mg PO HS 01/31/18 Melatonin 3 mg PO HS 01/31/18 Sevelamer Carbonate [Renvela -] 800 mg PO TID 01/31/18 Oxycodone HCl/Acetaminophen [Percocet 5-325 mg Tablet -] 1 - 2 tab PO Q4H #30 tablet MDD 6 05/27/18 Anemia: No Asthma: No Cancer: No Cardiac Disorders: Yes (ATRial FIBRILLATION) CVA: No COPD: No CHF: No Dementia: Yes (alzheimers) Diabetes: No Dialysis: Yes GI Disorders: No Disorders: Yes (ESRD TUES,THURS,SAT@ [facility]) HTN: Yes Hypercholesterolemia: Yes Liver Disease: No Psychiatric Problems: Yes (ALZHEIMER) Seizures: No Thyroid Disease: No - Surgical History Abdominal Surgery: No Appendectomy: No Cardiac Surgery: No Cholecystectomy: No Lung Surgery: No Neurologic Surgery: No Orthopedic Surgery: No - Immunization History Immunization Up to Date: No - Suicide/Smoking/Psychosocial Hx Smoking Status: Yes Smoking History: Never smoked Years of Tobacco Use: 22 Have you smoked in the past 12 months: No Number of Cigarettes Smoked Daily: 0 If you are a former smoker, when did you quit?: Over 5 years ago Information on smoking cessation initiated: No Hx Alcohol Use: No Drug/Substance Use Hx: No Substance Use Type: None Hx Substance Use Treatment: No Review of Systems - Review of Systems Able to Perform ROS?: Yes Comments:: 06/20/18 08:10 Constitutional - no reported Fever, Chills, HEENT: no reported vision changes, sore throat Respiratory: +cough, sob, no reported hemoptysis Cardiac: no reported chest pain, palpitations, light headedness, leg swelling Abd/GI: no reported abd pain, nausea, vomiting, blood per rectum, melena, diarrhea : no reported dysuria, frequency, discharge Musculskelatal - no reported back pain, joint swelling skin - no reported bruising, erythema, rash neurological: no reported headache, numbness, focal weakness, tingling, ataxia, hematologic: no reported easy bruising, easy bleeding *Physical Exam - Vital Signs Last Vital Signs Temp Pulse Resp BP Pulse Ox 97.6 F 65 20 142/60 98 06/20/18 06:31 06/20/18 06:31 06/20/18 06:31 06/20/18 06:31 06/20/18 06:31 - Physical Exam Comments: 06/20/18 07:52 GENERAL: The patient is awake, alert, and fully oriented, Nontoxic - in no acute distress. HEAD: Normocephalic, atraumatic. EYES: extraocular movements intact, sclera anicteric, conjunctiva clear. ENT: Normal voice, Moist mucous membranes. NECK: Normal range of motion, supple LUNGS: decreased respiratory sounds on R base to mid lung, no acute respiratory distress HEART: Regular rate and rhythm, normal S1 and S2 without murmur, rub or gallop. ABDOMEN: Soft, nontender, normoactive bowel sounds. No guarding, no rebound. . No CVA tenderness EXTREMITIES: Normal range of motion, no edema. graft on the RUE with thrill, graft on LLE without thrill NEUROLOGICAL: No facial assymetry, Normal speech, PSYCH: Normal mood, normal affect. SKIN: permcath in the L chest Warm, Dry, normal turgor, Moderate Sedation - Procedure Monitoring Vital Signs: Procedure Monitoring Vital Signs Temperature 97.6 F 06/20/18 06:31 Pulse Rate 65 06/20/18 06:31 Respiratory Rate 20 06/20/18 06:31 Blood Pressure 142/60 06/20/18 06:31 O2 Sat by Pulse Oximetry (%) 98 06/20/18 06:31 Heart Score/ECG Review - ECG Impressions Comment:: 06/20/18 08:25 Twelve-lead EKG was performed and reviewed by me. Atrial flutter, rate of 58 Left ventricular hypertrophy NonSpecific T wave changes ED Treatment Course - LABORATORY CBC & Chemistry Diagram: 06/20/18 07:23 06/20/18 09:20 - RADIOLOGY Radiology Studies Ordered: Category Date Time Status CHEST X-RAY PORTABLE* [RAD] Stat Radiology 06/20/18 07:17 Ordered Medical Decision Making - Medical Decision Making 06/20/18 08:11 Differential for the patient's symptoms includes possible metabolic derangements occult infection, acute coronary syndrome Will check blood work, chest x-ray EKG We'll monitor the patient's blood sugar, will discuss with PMD regarding ultimate disposition 06/20/18 11:04 pts alb reviewed cxr neg for acute infiltrate bgm 80 juli ldw 06/20/18 11:15 [address]r. pino rquested blood culture and if pts bgm stable, can be dc back to [facility] and will fu cultures 06/20/18 11:41 Patient feels better, asymptomatic we'll discharge back to [facility] I discussed the physical exam findings, ancillary test results and final diagnoses with the patient. I answered all of the patient's questions. The patient was satisfied with the care received and felt comfortable with the discharge plan and treatment plan. The patient will call their primary care physician within 24 hours to arrange follow-up and will return to the Emergency Department with any new, persistent or worsening symptoms. *DC/Admit/Observation/Transfer Diagnosis at time of Disposition: Hypoglycemia, End stage renal disease - Discharge Dispostion Disposition: [facility] Condition at time of disposition: Stable Decision to Admit order: No - Referrals Referrals: Eddi Jennings MD [Staff Physician] - - Patient Instructions Additional Instructions: Return to the emergency department immediately with ANY new, persistent or worsening symptoms. You MUST call and follow up with your doctor tomorrow for further evaluation of your symptoms. Results were discussed with you. Please make sure your doctor reviews the results of your emergency evaluation. If you had any xrays during your visit, it was read preliminarily by myself, a Radiologist will review it and if there are any additional findings we will call you. Print Language: ENG - Post Discharge Activity
[2018-06-20 08:13] VITALS: TEMP 98.3
[2018-06-20 08:21] LABS: BASO % 0.2 % (0-2.0); EOS % 2.2 % (0-4.5); HEMATOCRIT 34.6 % (35.4-49); HEMOGLOBIN 11.1 GM/dL (11.7-16.9); MCH 30.3 pg (25.7-33.7); MCHC 32.1 g/dl (32.0-35.9); MEAN CELL VOLUME 94.4 fl (80-96); MEAN PLT VOLUME 8.6 fl (7.5-11.1); MONO % 6.8 % (3.8-10.2); NEUT % 83.8 % (42.8-82.8); PLATELET COUNT 146 K/MM3 (134-434); RBC 3.67 M/mm3 (4.00-5.60); RDW 16.4 % (11.9-15.9); WHITE BLOOD COUNT 8.6 K/mm3 (4.0-10.0)
--- NOTE | 2018-06-20 09:47 | EKG ---
Test Reason : Blood Pressure : / mmHG Vent. Rate : 058 BPM Atrial Rate : 220 BPM P-R Int : 000 ms QRS Dur : 110 ms QT Int : 462 ms P-R-T Axes : 010 067 059 degrees QTc Int : 453 ms ATRIAL FLUTTER WITH VARIABLE A-V BLOCK LEFT VENTRICULAR HYPERTROPHY WITH REPOLARIZATION ABNORMALITY ABNORMAL ECG WHEN COMPARED WITH ECG OF 01-APR-2018 15:11, NO SIGNIFICANT CHANGE WAS FOUND Confirmed by SUMIT GROSSMAN, TYLER ([id number]) on 06/20/2018 9:47:39 AM Referred By: Confirmed By:TYLER ARANA MD
[2018-06-20 10:37] VITALS: BP 148/44; PULSE 57
[2018-06-20 10:44] LABS: ALK PHOS 245 U/L (45-117); ANION GAP 10 MMOL/L (8-16); BILIRUBIN,TOTAL 0.5 mg/dL (0.2-1); BLOOD UREA NITROGEN 39 mg/dL (7-18); CALCIUM 7.5 mg/dL (8.5-10.1); CHLORIDE 98 mmol/L (98-107); CO2 26 mmol/L (21-32); GLUCOSE,RANDOM 69 mg/dL (74-106); N-TERMINAL BNP 22595.6 pg/ml (5-450); POTASSIUM 3.5 mmol/L (3.5-5.1); SGOT/AST 18 U/L (15-37); SGPT/ALT 32 U/L (13-61); SODIUM 133 mmol/L (136-145); TOT PROT 6.8 g/dl (6.4-8.2)
[2018-06-20 10:46] LABS: CREATININE 8.2 mg/dL (0.55-1.3)
== END 2018-06-20 12:12 ==
LOC: JER 06:31
DX: E16.2 Hypoglycemia, unspecified (principal); I12.0 Hypertensive chronic kidney disease with stage 5 chronic kidney disease or end stage renal disease; N18.6 End stage renal disease; N17.8 Other acute kidney failure; Z99.2 Dependence on renal dialysis; I48.91 Unspecified atrial fibrillation; E78.00 Pure hypercholesterolemia, unspecified; G30.8 Other Alzheimer's disease; F02.80 Dementia in other diseases classified elsewhere, unspecified severity, without behavioral disturbance, psychotic disturbance, mood disturbance, and anxiety
CPT/HCPCS: 36415; 71045-TC-FY; 80053; 82550; 82962; 83880; 84484; 85025; 87040; 87804; 93005; 93010; 99283-25

== ENCOUNTER 2019-02-20 07:00 | Day surgery (SDC) | payer OTHER ==
[2019-02-17 10:42] VITALS: BMI 19.5
[2019-02-20] MEDS ORDERED: oxyCODONE HCL 5 MG TABLET PO PRN (07:51)
[2019-02-20] MEDS ORDERED: ONDANSETRON 4 MG/2 ML VIAL IVPUSH PRN (07:51)
[2019-02-20] MEDS ORDERED: SODIUM CHLORIDE 1,000 ML IV SCH (08:00)
[2019-02-20] MEDS ORDERED: MIDAZOLAM HCL 2 MG/2 ML SINGLE DOSE VIAL ONE (08:05)
[2019-02-20] MEDS ORDERED: PROPOFOL 20 ML ONE (08:06)
--- NOTE | 2019-02-20 08:28 | HP ---
[facility] - Chief Complaint History of Present Illness: 88 year old man with ESRD on HD. Old AV graft left arm with area of painful swelling. 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 History Allergies/Adverse Reactions: Allergies Allergy/AdvReac Type Severity Reaction Status Date / Time No Known Allergies Allergy Verified 02/20/19 07:48 INTERVENTIONAL TECH: Yes: Dementia Cardiovascular: Yes: AFIB, HTN, Hyperlipdemia Renal/: Yes: Hemodialysis (CKD) Heme/Onc: Yes: Anemia - Current Medications Current Medications: Home Medications Medication Instructions Recorded Acetaminophen [Tylenol] 325 mg PO Q6H PRN 10/28/15 Docusate Sodium [Colace -] 300 mg PO HS 10/28/15 Ferrous Sulfate [Feosol] 325 mg PO Q48H 10/28/15 Pantoprazole Sodium [Protonix] 40 mg PO DAILY 10/28/15 Carvedilol 12.5 mg PO Q12H 08/02/17 Diltiazem [Cardizem -] 90 mg PO Q6H 08/02/17 Fluocinolone/Shower Cap 3 drop AU BID PRN 08/02/17 [Fluocinolone 0.01% Scalp Oil] Latanoprost 0.005% Eye Drops 1 drop OU HS 08/02/17 [Xalatan 0.005% Eye Drops -] Lisinopril [Zestril] 2.5 mg PO DAILY 08/02/17 Timolol 0.5% [Timoptic 0.5%] 1 drop OU BID 08/02/17 Atorvastatin Ca [Lipitor] 10 mg PO HS 01/31/18 Melatonin 3 mg PO HS 01/31/18 Dorzolamide HCl/Pf [Dorzolamide 2% 2 drop OS BID 06/20/18 Eye Drop] Albuterol 2.5/Ipratropium 0.5 2.5 mg IH Q6H PRN 11/21/18 [Duoneb -] Guaifenesin [Brandy-Tussin] 5 ml PO QID PRN 11/21/18 Magnesium Hydroxide [Milk of 15 ml PO DAILY 11/21/18 Magnesia -] Ondansetron [Zofran -] 1 tab PO Q8H PRN 11/21/18 Vitamin B Comp W-C [Nephro-Heather -] 1 tab PO HS 11/21/18 Satellite Physical Exam - Physical Examination Vital Signs: Vital Signs Period Temp Pulse Resp BP Sys/Kaplan Pulse Ox Last 24 Hr 97.7 F 66 18 153/56 100 General Appearance: Alert & Oriented x3 ENT: Clear Lung: Clear to auscultation Heart: Regular rate & rhythm Abdomen: Soft Extremities: Other (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
[2019-02-20] MEDS ORDERED: HEPARIN NA (PORCINE) 5,000 UNITS/ML 1ML VIAL ONE (08:33)
[2019-02-20] MEDS ORDERED: LIDOCAINE HCL 1%, 10 MG/ML (20ML VIAL) ONE ×2 (08:33→09:00)
[2019-02-20] MEDS ORDERED: ceFAZolin SODIUM 1 GM VIAL IVPB ONE (08:44)
[2019-02-20] MEDS ORDERED: ceFAZolin SODIUM 1 GM VIAL ONE (08:53)
[2019-02-20] MEDS ORDERED: SODIUM CHLORIDE 0.9% P/F 10 ML VIAL IJ ONE (08:53)
[2019-02-20] MEDS ORDERED: LIDOCAINE HCL 1%, 10 MG/ML (50 mL VIAL) IJ ONE (08:58)
--- NOTE | 2019-02-20 09:37 | OP ---
Operative Note - Note: Operative Date: 02/20/19 Pre-Operative Diagnosis: Thrombosed graft left arm Operation: Excision graft left arm Findings: Thrombosed AV graft aneurysm with small amount purulent fluid Post-Operative Diagnosis: Same as Pre-op Surgeon: Krzysztof Diana Extractor Tender Raw Stock: Ally Her Anesthesiologist/DECK ENGINE OPERATOR: Arlette Raines Anesthesia: Fractional Specimens Removed: Skin and thrombosed graft Estimated Blood Loss (mls): 50 Operative Report Dictated: Yes
--- NOTE | 2019-02-20 10:43 | OP ---
DATE OF OPERATION: 02/20/2019 SURGEON: Krzysztof Diana MD AIRCRAFT DESIGNER: ALFONSO Bean PROCEDURE: Excision of thrombosed graft, left arm. PREOPERATIVE DIAGNOSIS: Thrombosed arteriovenous graft left arm. POSTOPERATIVE DIAGNOSIS: Thrombosed arteriovenous graft left arm with local infection. ANESTHESIA: Fractional. ANESTHESIOLOGIST: MD Arlette OPERATIVE FINDINGS: There was an area of aneurysmal dilatation around the AV graft to the left arm, which was thrombosed. With manipulation, a small amount of purulent fluid was expressed from over the graft. OPERATIVE PROCEDURE: Following routine patient identification with site and side verification, intravenous sedation was established. The left arm was prepped with ChloraPrep. Time-out was performed. Lidocaine 1% was infiltrated over and around the graft in the left upper arm. An elliptical incision was then made to encompass the area of the thrombosed aneurysm. The subcutaneous tissues were divided using cautery. The specimen was then from the underlying tissue down to the muscle fascia. At the proximal end, the tied off end of the AV graft was identified. The skin and subcutaneous tissues were removed. The end of the graft was then retracted into the wound, from the subcutaneous tissues, and transected. This resulted in arterial bleeding from the end of the graft. The incision was extended distally, and the graft was grasped with clamp and ligated with a 2-0 silk suture ligature. The wound was irrigated with bacitracin solution and then the skin edges were approximated with interrupted suture of 3-0 Vicryl in the subcutaneous tissues and skin clemente. A sterile dressing consisting of dry gauze, Kerlix, and Coban was applied, and the patient was taken to the recovery room in stable condition. Bertha [id number] MTDD
[2019-02-20 10:54] VITALS: TEMP 97.5
[2019-02-20 12:50] VITALS: BP 150/50; PULSE 80
--- NOTE | 2019-02-23 15:00 | PATH ---
Surgical Pathology Report Patient Name: YESICA LEE Med. Rec. #: [id number] /Age/Gender: 1930 (Age: 88) / M Account: [id number] Location: [facility] SURGICAL Taken: 02/20/2019 Received: 02/20/2019 Reported: 02/23/2019 Physicians: Krzysztof Dinaa M.D. Specimen(s) Received SKIN AND EXCISED GRAFT FROM LEFT ARM Clinical History Excision AV graft, left arm Final Diagnosis SKIN AND EXCISED GRAFT FROM LEFT ARM, EXCISION: SEGMENT OF SKIN WITH AV GRAFT SHOWING SEVERE ACUTE AND CHRONIC INFLAMMATION WITH ABSCESS FORMATION, OLD HEMORRHAGE, DYSTROPHIC CALCIFICATION, AND FIBROSIS. Electronically Signed Cameron Sibley M.D. Gross Description Received in formalin, labeled "skin and excised graft from left arm" is a portion of skin measuring 5.7 x 2.0 x 1.0 cm. At the center of the skin is area with white exudate measuring 1 cm in greatest dimension. Serial sections of the skin showa luminal structure in the dermis with focal necrotic change. Separate one portion of vascular structure measuring 1.5 cm length and 0.5 cm in diameter is present. Multi Punch Operator sections submitted in 5 cassettes. 1-4: Skin. 5: Vascular structure, entirely submitted. MIKA/02/21/2019 cesar/02/21/2019
== END 2019-02-20 12:40 ==
LOC: JASU-SURG 07:00
PROVIDERS: ATTEND Surgery
PROC: 05BY0ZZ Excision of Upper Vein, Open Approach (ICD-10-PCS; principal; 2019-02-20 08:00)
DX: T82.868A Thrombosis due to vascular prosthetic devices, implants and grafts, initial encounter (principal); I12.0 Hypertensive chronic kidney disease with stage 5 chronic kidney disease or end stage renal disease; N18.6 End stage renal disease; Z99.2 Dependence on renal dialysis
CPT/HCPCS: 36415; 84132; 88305-TC; 94760; J1644

== ENCOUNTER 2019-09-02 09:13 | Inpatient (IN) | payer OTHER ==
--- NOTE | 2019-09-02 09:54 | PDOC ---
Attending Attestation - Resident Resident Name: Stephanie Villatoro - ED Attending Attestation I have performed the following: I have examined & evaluated the patient, The case was reviewed & discussed with the resident, I agree w/resident's findings & plan, Exceptions are as noted - HPI HPI: 89 yo M history ESRD on HD, dementia, HTN, HL, afib presents via EMS from dialysis for AMS. Patient unable to offer any history. As per family, patient with recent weight loss, increased weakness. Unable to obtain any additional history. - Physicial Exam PE: GENERAL: Lethargic, opens eyes to voice. Appears chronically ill, cachectic HEAD: No signs of trauma EYES: PERRLA, EOMI, sclera anicteric, conjunctiva clear ENT: Auricles normal inspection, hearing grossly normal, nares patent, oropharynx clear without exudates. Dry mucosa NECK: Normal ROM, supple, no lymphadenopathy, JVD, or masses LUNGS: +Rhonchi B/L HEART: Regular rate and rhythm, normal S1 and S2, no murmurs, rubs or gallops ABDOMEN: Soft, nontender, normoactive bowel sounds. No guarding, no rebound. No masses EXTREMITIES: R upper arm with AVF, +thrill. Normal range of motion, no edema. No clubbing or cyanosis. No cords, erythema, or tenderness NEUROLOGICAL: Moving all extremities, unable to cooperate with full exam. SKIN: Warm, dry, normal turgor, no rashes or lesions noted. - Medical Decision Making As per discussion with family, patient would not want intubation/vent/resuscitation. Treat any reversible cause of illness including infections. CXR findings suspicious for COVID. Will give supplemental O2, abx, and comfort care as needed. Discharge - Discharge Information Problems reviewed: Yes Clinical Impression/Diagnosis: Suspected 2019 novel coronavirus infection Condition: Guarded - Follow up/Referral - Patient Discharge Instructions - Post Discharge Activity
[2019-09-02 10:07] VITALS: BMI 20.7
[2019-09-02 10:16] LABS: BASO % 0.1 % (0-2.0); EOS % 0.1 % (0-4.5); HEMATOCRIT 22.8 % (35.4-49); HEMOGLOBIN 7.7 GM/dL (11.7-16.9); LYMPH % 5.2 % (8-40); MCHC 33.8 g/dl (32.0-35.9); MEAN CELL VOLUME 91.7 fl (80-96); MONO % 3.1 % (3.8-10.2); NEUT % 91.5 % (42.8-82.8); PLATELET COUNT 270 K/MM3 (134-434); RBC 2.49 M/mm3 (4.00-5.60); RDW 15.2 % (11.9-15.9); WHITE BLOOD COUNT 12.9 K/mm3 (4.0-10.0)
[2019-09-02 10:25] LABS: INR 1.97 (0.83-1.09); PROTHROMBIN TIME (PATIENT) 23.4 SEC (9.7-13.0)
[2019-09-02 10:28] LABS: ACTIVATED PTT 38.5 SECONDS (25.2-36.5)
[2019-09-02 10:29] LABS: VENOUS PC02 49.5 mmHg (38-52)
[2019-09-02 10:31] LABS: VENOUS PO2 < 49 mmHg (28-48)
--- NOTE | 2019-09-02 10:37 | PDOC ---
History of Present Illness - General Chief Complaint: Respiratory Stated Complaint: S.O.B, PAIN Time Seen by Provider: 09/02/19 09:39 History Source: EMS, Alf Records Exam Limitations: Clinical Condition - History of Present Illness Initial Comments: 09/02/19 10:36 89YOM with h/o ESRD on HD, alzheimers, A-fib, hHTN, and HLD who was BIBEMS from [facility] for altered mental status. The patient himself is unable to provide any of his medical history. Family explains that he has been "giving up" more and more over the past several months despite adherence to HD - state he has been losing weight and becoming more frail. They state that he has noted not wanting to be intubated and vented before, even as a life saving measure. The daughter notes he would want to be kept comfortable as a primary goal. Past History - Past Medical History Allergies/Adverse Reactions: Allergies Allergy/AdvReac Type Severity Reaction Status Date / Time No Known Allergies Allergy Verified 08/17/19 09:39 Home Medications: Ambulatory Orders Timolol 0.5% [Timoptic 0.5%] 1 drop OU BID 08/02/17 Ceftriaxone [Rocephin -] 1 gm IVPB DAILY #7 vial 09/02/19 Anemia: No Asthma: No Cancer: No Cardiac Disorders: Yes (ATRial FIBRILLATION) CVA: No COPD: No CHF: No Dementia: Yes (alzheimers) Diabetes: No Dialysis: Yes GI Disorders: No Disorders: Yes (ESRD ,,SAT@ [facility]) HTN: Yes Hypercholesterolemia: Yes Liver Disease: No Psychiatric Problems: Yes (ALZHEIMER) Seizures: No Thyroid Disease: No - Surgical History Abdominal Surgery: No Appendectomy: No Cardiac Surgery: No Cholecystectomy: No Lung Surgery: No Neurologic Surgery: No Orthopedic Surgery: No - Immunization History Immunization Up to Date: No - Psycho Social/Smoking Cessation Hx Smoking Status: Yes Smoking History: Unknown if ever smoked Years of Tobacco Use: 22 Have you smoked in the past 12 months: No Number of Cigarettes Smoked Daily: 0 If you are a former smoker, when did you quit?: Over 5 years ago Hx Alcohol Use: No Drug/Substance Use Hx: No Substance Use Type: None Hx Substance Use Treatment: No Review of Systems - Review of Systems Able to Perform ROS?: No (AMS) *Physical Exam - Vital Signs Last Vital Signs Temp Pulse Resp BP Pulse Ox 97.6 F 140 H 40 H 156/78 71 L 09/02/19 09:25 09/02/19 09:25 09/02/19 09:25 09/02/19 09:25 09/02/19 09:25 - Physical Exam 09/02/19 10:53 GENERAL: elderly, tired and ill-appearing, A/Ox4, no distress, not answering questions HEENT: PERRLA, EOMI, very dry mucous membranes NECK/BACK: no midline ttp, no spinal stepoff or deformity, no hematoma, full ROM, neck supple CARDIOVASCULAR: regular rate/rhythm, no MGR, strong peripheral pulses, capillary refill 4 seconds, extremities cool, AVF RUE with good bruit and thrill, old vascular access scar LUE, radial pulses palpable LUNGS/RESPIRATORY: tachypnea, coarse breath sounds bilaterally GI/ABDOMEN: symmetric [id number], normoactive BS, soft, no ttp, no midline pulsatile masses : no CVA tenderness EXTREMITIES: no muscle atrophy, no acute deformity SKIN: cap refill 4 seconds, warm and dry, no pallor, no jaundice, no rash, no bruising, no skin breakdown, no cuts, no lesions NEUROLOGICAL: GCS 15, CN II-XII grossly intact, 5/5 strength proximally and distally, no facial droop Heart Score/ECG Review #1 09/02/19 16:23A-fib with RVR, vent rate 136, RBBB, PVCs, TWI and ST changes noted ED Treatment Course - LABORATORY CBC & Chemistry Diagram: 09/02/19 09:40 09/02/19 09:40 - ADDITIONAL ORDERS Additional order review: Laboratory Results 09/02/19 09/02/19 09:40 09:40 PT with INR 23.40 H INR 1.97 H PTT (Actin FS) 38.5 H VBG pH 7.40 POC VBG pCO2 49.5 POC VBG pO2 < 49 H VBG HCO3 30.0 H VBG O2 Sat (Orestes) 16.4 L VBG Base Excess 4.7 H 09/02/19 09:40 RBC 2.49 L MCV 91.7 MCHC 33.8 RDW 15.2 MPV 8.0 Neutrophils % 91.5 H D Lymphocytes % 5.2 L D Monocytes % 3.1 L Eosinophils % 0.1 D Basophils % 0.1 Medical Decision Making - Medical Decision Making 09/02/19 10:55 89YOM AMS, cough, SOB. Initial Vital Signs Temp Pulse Resp BP Pulse Ox 99.1 F 79 20 151/79 99 09/02/19 07:55 09/02/19 07:55 09/02/19 07:55 09/02/19 07:55 09/02/19 07:55 Exam: As noted in Physical Exam section. DDX IBNLT: Likely COVID-19, influenza, PNA, bronchitis, COPD, asthma, CHF, other lung disease, other viral URI, laryngitis, tracheitis, etc. W/U ordered: Labs as noted below EKG CXR TX ordered: [facility] IVF EKG: Reviewed; results as noted in ECG Review section. RAD/CHEST X-RAY PORTABLE* Chest: Shortness of breath Single view of the chest has been submitted. Since 08/17/2019, there is a large heart, sclerotic aorta and patchy bilateral infiltrates with bilateral axillary vascular stents and right axillary clips. Correlation recommended. Impression: New infiltrates since prior study of 08/17/2019. Laboratory Tests 09/02/19 09/02/19 09/02/19 08:20 08:20 08:20 WBC 5.8 RBC 3.95 Hgb 12.4 Hct 37.1 MCV 94.0 MCH 31.4 MCHC 33.4 RDW 14.0 Plt Count 194 MPV 7.9 Absolute Neuts (auto) 4.2 Neutrophils % 72.7 D Lymphocytes % 9.2 D Monocytes % 16.8 H Eosinophils % 1.1 Basophils % 0.2 Nucleated RBC % 0 VBG pH 7.37 POC VBG pCO2 52.5 H POC VBG pO2 < 49 H VBG HCO3 29.4 H VBG O2 Sat (Orestes) 21.0 L VBG Base Excess 3.5 H Sodium 141 Potassium 3.3 L Chloride 106 Carbon Dioxide 28 Anion Gap 7 L BUN 6.4 L Creatinine 0.6 Est GFR (CKD-EPI)AfAm 89.17 Est GFR (CKD-EPI)NonAf 76.93 Random Glucose 108 H Calcium 8.0 L Total Bilirubin 0.5 Direct Bilirubin 0.3 H AST 22 ALT 13 Alkaline Phosphatase 178 H LD Total 219 Creatine Kinase 58 Troponin I < 0.02 Total Protein 6.4 Albumin 2.6 L 09/02/19 10:50 Patient unsafe for discharge home at this time given respiratory distress. They require further hospital observation, workup, and treatment. Call placed to [facility]uma Armas for admission. Microblog sent to [facility] for admission. Blank Decision to Admit order is placed per ED protocol. 09/02/19 10:[address] Armas, patient admitted to [facility] Med[facility]urg. Discharge - Discharge Information Problems reviewed: Yes Clinical Impression/Diagnosis: Suspected 2019 novel coronavirus infection Condition: Guarded - Admission Yes - Follow up/Referral - Patient Discharge Instructions - Post Discharge Activity
[2019-09-02 10:49] LABS: ALBUMIN 2.3 g/dl (3.4-5.0); BILIRUBIN,DIRECT 0.8 mg/dL (0.0-0.2); BILIRUBIN,TOTAL 1.6 mg/dL (0.2-1); BLOOD UREA NITROGEN 43.4 mg/dL (7-18); CALCIUM 9.3 mg/dL (8.5-10.1); CREATININE 5.7 mg/dL (0.55-1.3); POTASSIUM 3.9 mmol/L (3.5-5.1)
[2019-09-02 12:20] LABS: PLATELET ESTIMATE ADEQUATE; TARGET CELLS FEW
--- NOTE | 2019-09-02 15:57 | HP ---
Admitting History and Physical - Primary Care Physician PCP: Eddi Jennings - Admission Chief Complaint: AMS History of Present Illness: 89YOM with h/o ESRD on HD, alzheimers, A-fib, hHTN, and HLD who was BIBEMS from [facility] for altered mental status. The patient himself is unable to provide any of his medical history. Family explains that he has been "giving up" more and more over the past several months despite adherence to HD - state he has been losing weight and becoming more frail. They state that he has noted not wanting to be intubated and vented before, even as a life saving measure. The daughter notes he would want to be kept comfortable as a primary goal. Pt examined in ER Lethargic Pt is known to me from NH Pt was febrile in the NH, poor oral intake was on IV Vanco during HD for febrile illness- WBC initially was 22 when antibiotics started cultures were negative He completed antibiotics Still no improvement in mentation Limitations to Obtaining History: Physical Impairment - Past Medical History [employer] DRIVER: Yes: Dementia Cardiovascular: Yes: AFIB, HTN, Hyperlipdemia Renal/: Yes: Hemodialysis (CKD) Heme/Onc: Yes: Anemia - Past Surgical History Past Surgical History: Yes: Joint Replacement - Smoking History Smoking history: Unknown if ever smoked Have you smoked in the past 12 months: No Aproximately how many cigarettes per day: 0 If you are a former smoker, when did you quit?: Over 5 years ago - Alcohol/Substance Use Hx Alcohol Use: No History of Substance Use: reports: None - Social History ADL: Support Services 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 History of Recent Travel: No Home Medications - Allergies Allergies/Adverse Reactions: Allergies Allergy/AdvReac Type Severity Reaction Status Date / Time No Known Allergies Allergy Verified 08/17/19 09:39 - Home Medications Home Medications: Ambulatory Orders Timolol 0.5% [Timoptic 0.5%] 1 drop OU BID 08/02/17 Atorvastatin Ca [Lipitor] 10 mg PO HS 01/31/18 Dorzolamide HCl/Pf [Dorzolamide 2% Eye Drop] 2 drop OS BID 06/20/18 Guaifenesin [Brandy-Tussin] 5 ml PO QID PRN 11/21/18 Ascorbic Acid [Vitamin C] 500 mg PO DAILY 08/17/19 Aspirin [ASA -] 325 mg PO DAILY 08/17/19 Clopidogrel Bisulfate [Plavix] 75 mg PO DAILY 08/17/19 Sennosides [Senokot] 8.6 mg PO HS 08/17/19 Sevelamer Carbonate [Renvela -] 800 mg PO AC 08/17/19 Tramadol HCl 50 mg PO BID 08/17/19 Review of Systems - Review of Systems Constitutional: reports: Lethargy. denies: Fever Physical Examination Vital Signs: Vital Signs Temperature 97.6 F 09/02/19 15:06 Pulse Rate 110 H 09/02/19 15:06 Respiratory Rate 36 H 09/02/19 15:06 Blood Pressure 145/45 L 09/02/19 15:06 O2 Sat by Pulse Oximetry (%) 90 L 09/02/19 15:06 Constitutional: Yes: No Distress, Cachectic, Thin Cardiovascular: Yes: Regular Rate and Rhythm Respiratory: Yes: Diminished Gastrointestinal: Yes: Normal Bowel Sounds, Soft. No: Tenderness Edema: No Neurological: Yes: Lethargy Labs: CBC, BMP 09/02/19 09:40 09/02/19 09:40 Imaging - Results Chest X-ray: Image Reviewed Problem List - Problems (1) Suspected 2019 novel coronavirus infection Code(s): R68.89 - OTHER GENERAL SYMPTOMS AND SIGNS (2) Afib Code(s): I48.91 - UNSPECIFIED ATRIAL FIBRILLATION Qualifiers: Atrial fibrillation type: persistent (3) Anemia Code(s): D64.9 - ANEMIA, UNSPECIFIED Qualifiers: Anemia type: unspecified type Qualified Code(s): D64.9 - Anemia, unspecified (4) ESRD (end stage renal disease) on dialysis Code(s): N18.6 - END STAGE RENAL DISEASE; Z99.2 - DEPENDENCE ON RENAL DIALYSIS Assessment/Plan PLAN Spoke with ER MD MALDONADO pending Family wants comfort care Pt deteriorating , prognosis poor Spoke with Nephrology as well can start iv ceftriaxone may dc pt back to NH- they will resume comfort care and antibiotics, inhalers and tylenol as needed w Pt is DNR/DNI
--- NOTE | 2019-09-02 16:21 | DS ---
Physical Examination Vital Signs: Vital Signs Temperature 97.6 F 09/02/19 15:06 Pulse Rate 110 H 09/02/19 15:06 Respiratory Rate 36 H 09/02/19 15:06 Blood Pressure 145/45 L 09/02/19 15:06 O2 Sat by Pulse Oximetry (%) 90 L 09/02/19 15:06 Labs: CBC, BMP 09/02/19 09:40 09/02/19 09:40 Discharge Summary Problems reviewed: Yes Reason For Visit: SUSPECTED COVID19, MRSA Current Active Problems Suspected 2019 novel coronavirus infection (Acute) Hospital Course: may look at H and P Pt is on comfort care DNR/DNI prognosis poor comfort care can be managed in NH Condition: Guarded - Instructions - Home Medications Comprehensive Discharge Medication List: Ambulatory Orders Timolol 0.5% [Timoptic 0.5%] 1 drop OU BID 08/02/17 Atorvastatin Ca [Lipitor] 10 mg PO HS 01/31/18 Dorzolamide HCl/Pf [Dorzolamide 2% Eye Drop] 2 drop OS BID 06/20/18 Guaifenesin [Brandy-Tussin] 5 ml PO QID PRN 11/21/18 Ascorbic Acid [Vitamin C] 500 mg PO DAILY 08/17/19 Aspirin [ASA -] 325 mg PO DAILY 08/17/19 Clopidogrel Bisulfate [Plavix] 75 mg PO DAILY 08/17/19 Sennosides [Senokot] 8.6 mg PO HS 08/17/19 Sevelamer Carbonate [Renvela -] 800 mg PO AC 08/17/19 Tramadol HCl 50 mg PO BID 08/17/19
[2019-09-02] MEDS ORDERED: cefTRIAXone SODIUM 1 GM VIAL ONE (18:00)
[2019-09-02] MEDS ORDERED: DEXTROSE 5%-WATER - 50 ML IVPB ONE (18:00)
[2019-09-02] MEDS: CEFTRIAXONE 1 GM in DEXTROSE 5%-WATER - 50 ML IVPB SCH (18:36)
[2019-09-02] MEDS ORDERED: MORPHINE SULFATE 2 MG/ML VIAL IVPUSH ONE (18:50)
[2019-09-02] MEDS: AZITHROMYCIN IVPB 500 MG/250 ML BAG IVPB SCH (20:57)
[2019-09-02] MEDS ORDERED: TIMOLOL 0.5% OPHTHALMIC SOL 5 ML BOTTLE OU SCH (22:00)
[2019-09-02] MEDS: ACETAMINOPHEN 1000 MG/100 ML VIAL (NON FORMULARY) IVPB PRN (22:31)
[2019-09-03] MEDS ORDERED: MORPHINE SULFATE 2 MG/ML VIAL IVPUSH ONE (00:11)
[2019-09-03 07:00] VITALS: PULSE 124
[2019-09-03] MEDS: ACETAMINOPHEN 1000 MG/100 ML VIAL (NON FORMULARY) IVPB PRN (07:00)
[2019-09-03] MEDS ORDERED: cefTRIAXone SODIUM 1 GM VIAL ONE (08:04)
[2019-09-03] MEDS ORDERED: DEXTROSE 5%-WATER - 50 ML IVPB ONE (08:05)
[2019-09-03] MEDS: CEFTRIAXONE 1 GM in DEXTROSE 5%-WATER - 50 ML IVPB SCH (09:09)
[2019-09-03] MEDS: AZITHROMYCIN IVPB 500 MG/250 ML BAG IVPB SCH (09:35)
--- NOTE | 2019-09-03 10:25 | RAPID ---
Physical Examination Vital Signs: Vital Signs Temperature 100.5 F H 09/03/19 06:59 Pulse Rate 124 H 09/03/19 06:59 Respiratory Rate 39 H 09/03/19 06:59 Blood Pressure 125/49 L 09/03/19 06:59 O2 Sat by Pulse Oximetry (%) 82 L 09/03/19 09:00 no detectable pulse, no detectable BP, detectable no pulse Findings/Remarks: Rapid response called for lack of vitals during routine monitoring, unresponsive to stimuli. Admitted for COVID r/o. DNR/DNI Constitutional: Yes: Ashen, Cachectic HENT: Yes: Other (severe temporal). No: Atraumatic, Normocephalic Neck: No: Lymphadenopathy Cardiovascular: Yes: Other (no pulse(carotids 0, radial 0, femoral 0)). No: S1, S2 Respiratory: Yes: Other (no breath sounds) Extremities: Yes: Cool (cool feet b/l, cool hands b/l) Neurological: Yes: Other (neg corneal reflex) Labs: CBC, BMP 09/02/19 09:40 09/02/19 09:40 Rapid Response - Rapid Response Outcome: Lost of vitals. Found unresponsive. DNR/DNI. No intervention performed Time of ~10:12 Primary Physician Notified: Ruma Armas (Nurse Sarahi notified Dr Armas)
[2019-09-03 11:06] VITALS: BP 128/67; TEMP 99.1
--- NOTE | 2019-09-04 14:50 | EKG ---
Test Reason : Blood Pressure : / mmHG Vent. Rate : 136 BPM Atrial Rate : 127 BPM P-R Int : 000 ms QRS Dur : 138 ms QT Int : 306 ms P-R-T Axes : 000 -31 068 degrees QTc Int : 460 ms ATRIAL FIBRILLATION WITH RAPID VENTRICULAR RESPONSE WITH PREMATURE VENTRICULAR OR ABERRANTLY CONDUCTED COMPLEXES LEFT AXIS DEVIATION RIGHT BUNDLE BRANCH BLOCK MODERATE VOLTAGE CRITERIA FOR LVH, MAY BE NORMAL VARIANT T WAVE ABNORMALITY, CONSIDER LATERAL ISCHEMIA ABNORMAL ECG WHEN COMPARED WITH ECG OF 17-AUG-2019 09:31, VENT. RATE HAS INCREASED BY 52 BPM Confirmed by TYLER ARANA MD ([id number]) on 09/04/2019 2:50:25 PM Referred By: Confirmed By:TYLER ARANA MD
== END 2019-09-03 13:51 | disposition expired | DRG 193 ==
LOC: JER 09:13 → JERBED 11:01 → J4S 16:40
PROVIDERS: ADMIT Internal Medicine; ATTEND Internal Medicine
DX: J12.89 Other viral pneumonia (principal); N18.6 End stage renal disease; R64 Cachexia; I12.0 Hypertensive chronic kidney disease with stage 5 chronic kidney disease or end stage renal disease; R41.82 Altered mental status, unspecified; E78.5 Hyperlipidemia, unspecified; I48.91 Unspecified atrial fibrillation; R53.83 Other fatigue; G30.9 Alzheimer's disease, unspecified; F02.80 Dementia in other diseases classified elsewhere, unspecified severity, without behavioral disturbance, psychotic disturbance, mood disturbance, and anxiety; D64.9 Anemia, unspecified; Z66 Do not resuscitate; I46.9 Cardiac arrest, cause unspecified; Z68.20 Body mass index [BMI] 20.0-20.9, adult; B97.29 Other coronavirus as the cause of diseases classified elsewhere; J98.8 Other specified respiratory disorders; Z99.2 Dependence on renal dialysis
CPT/HCPCS: 36415; 71045-TC-FY; 80053; 82248; 82550; 82803; 83605; 83615; 84484; 85025; 85379; 85610; 85730; 87040; 87389; 93005; 93010; 99285-25; J0131; U0002